=== PATIENT | male | born 1955 | race American Indian/Alaskan Native ===

== ENCOUNTER 2016-12-06 22:08 | Emergency (ER) | payer MEDICAID ==
[2016-12-06] MEDS ORDERED: Lidocaine 1% 30 ML SDV INJECT ONE (22:33)
--- NOTE | 2016-12-06 22:35 | EDM.PDOC ---
ED HPI GENERAL MEDICAL PROBLEM - General Chief Complaint: Laceration Stated Complaint: CUT ARM Time Seen by Provider: 12/06/16 22:33 Source of Information: Reports: Patient History Limitations: Reports: No Limitations - History of Present Illness INITIAL COMMENTS - FREE TEXT/NARRATIVE: cut [employer]. Left Anterior Arm Pain Score (Numeric/FACES): 3 - Related Data Allergies Allergy/AdvReac Type Severity Reaction Status Date / Time amoxicillin Allergy Rash Verified 12/06/16 22:44 Home Meds: Home Meds Aspirin [Halfprin] 81 mg PO DAILY 11/12/15 [History] Hydrocodone/Acetaminophen [Hydrocodon-Acetaminophen 5-325] 1 tab PO ASDIRECTED PRN 11/12/15 [History] predniSONE [Prednisone] 5 mg PO DAILY 11/12/15 [History] Omeprazole 20 mg PO DAILY 01/22/16 [History] Clindamycin HCl [Cleocin] 1 cap PO BID 01/23/16 [History] Past Medical History Respiratory History: Reports: PE Musculoskeletal History: Reports: SLE Immunologic History: Reports: SLE Social & Family History - Tobacco Use Smoking Status *Q: Current Some Day Smoker Years of Tobacco use: 40 Packs/Tins Daily: 0.1 Second Hand Smoke Exposure: Yes - Recreational Drug Use Recreational Drug Use: No ED ROS GENERAL - Review of Systems Review Of Systems: ROS reveals no pertinent complaints other than HPI. ED EXAM, SKIN/RASH Exam: See Below Exam Limited By: No Limitations General Appearance: Alert, WD/WN, No Apparent Distress Ears: Hearing Grossly Normal Throat/Mouth: Normal Voice, No Airway Compromise Head: Atraumatic Neck: Non-Tender, Full Range of Motion Respiratory/Chest: No Respiratory Distress Cardiovascular: Regular Rate, Rhythm GI/Abdominal: Soft, Non-Tender Extremities: Other (left forearm 2", NV wnl.) Neurological: Alert, Oriented, Normal Cognition, Normal Gait, No Motor/Sensory Deficits Psychiatric: Normal Affect, Normal Mood Skin: Warm, Dry, Normal Color Location, Skin: Upper Extremity, Left Lymphatic: No Adenopathy ED SKIN PROCEDURES - Laceration/Wound Repair Left Arm Lac/Wound length In cm: 4 (left forearm) Appearance: Subcutaneous, Linear, Clean Distal NVT: Neuro & Vascular Intact, No Tendon Injury Anesthetic Type: Local Local Anesthesia - Lidocaine (Xylocaine): 1% Plain Local Anesthetic Volume: 5cc Skin Prep: Chlorhexidine (Hibiciens) Saline Irrigation (cc's): 20 Exploration/Debridement/Repair: Wound Explored, In a Bloodless Field, No Foreign Material Found Closed with: Sutures Suture Size: 4-0 Suture Type: Interrupted Tetanus Status Addressed: Yes Complications: No Course - Vital Signs Last Recorded V/S: Last Vital Signs Temp 36.5 C 12/06/16 22:32 Pulse 72 12/06/16 22:32 Resp 17 12/06/16 22:32 BP 115/69 12/06/16 22:32 Pulse Ox 100 12/06/16 22:32 - Orders/Labs/Meds Meds: Medications Discontinued Medications Generic Name Dose Route Start Last Admin Trade Name Isidroq PRN Reason Stop Dose Admin Lidocaine HCl 30 ml 12/06/16 22:33 Xylocaine-Mpf 1% INJECT 12/06/16 22:34 ONETIME ONE Departure - Departure Time of Disposition: 22:58 Disposition: Home, Self-Care 01 Condition: Good Clinical Impression: Laceration of forearm without complication Qualifiers: Encounter type: initial encounter Laterality: left Qualified Code(s): S51.812A - Laceration without foreign body of left forearm, initial encounter - Discharge Information Instructions: Stitches, [place], or Adhesive Wound Closure, [id number] Forms: ED Department Discharge Additional Instructions: 1) keep wound clean dry covered 2) recheck if wound looks infected 3) suture removal 10 days
[2016-12-06 23:10] VITALS: BP 123/79
== END 2016-12-06 23:13 | disposition home or self-care (01) ==
LOC: DL.ED 22:08
DX: S51.812A Laceration without foreign body of left forearm, initial encounter (principal); F17.210 Nicotine dependence, cigarettes, uncomplicated; M32.9 Systemic lupus erythematosus, unspecified; Z79.82 Long term (current) use of aspirin; Z79.899 Other long term (current) drug therapy; Z88.1 Allergy status to other antibiotic agents; Z86.711 Personal history of pulmonary embolism; W45.8XXA Other foreign body or object entering through skin, initial encounter
CPT/HCPCS: 12002; 99282

== ENCOUNTER 2018-01-20 05:39 | Observation (INO) | payer MEDICAID ==
[2018-01-20] MEDS ORDERED: Albuterol/Ipratropium 3.0-0.5 MG/3 ML Neb Soln NEB ONE (05:53)
[2018-01-20] MEDS ORDERED: Sodium Chloride 0.9% 1,000 ML IV ONE (05:56)
[2018-01-20 06:32] LABS: ANION GAP 14.6; CHLORIDE,CL 100 mmol/L (101-111); SODIUM,NA 132 mmol/L (135-145)
--- NOTE | 2018-01-20 06:38 | EDM.PDOC ---
<Marianela Willis - Last Filed: 01/20/18 07:05> ED HPI GENERAL MEDICAL PROBLEM - General Chief Complaint: Respiratory Problem Stated Complaint: PNEUMONIA Time Seen by Provider: 01/20/18 05:50 Source of Information: Reports: Patient, Family History Limitations: Reports: No Limitations - History of Present Illness INITIAL COMMENTS - FREE TEXT/NARRATIVE: ED with c/o "pneumonia" states was treated in clinic 2 weeks ago and not any better, continues to cough up "blood" report small amounts, chills, weak, dry heaves. Poor appetite. Hx Lupus. On daily prednisone, Occasional smoker usually cigars. Pain LUQ worse with movement and cough. reports hx of blood clot to lungs in past estimates one year ago. Patient reports other episodes years ago. Baseline activity level moderate with daily walking. Left Middle Chest Pain Score (Numeric/FACES): 10 - Related Data Allergies Allergy/AdvReac Type Severity Reaction Status Date / Time amoxicillin Allergy Rash Verified 01/20/18 05:54 Home Meds: Home Meds Aspirin [Halfprin] 81 mg PO DAILY 11/12/15 [History] Hydrocodone/Acetaminophen [Hydrocodon-Acetaminophen 5-325] 1 tab PO ASDIRECTED PRN 11/12/15 [History] predniSONE [Prednisone] 5 mg PO DAILY 11/12/15 [History] Omeprazole 20 mg PO DAILY 01/22/16 [History] Clindamycin HCl [Cleocin] 1 cap PO BID 01/23/16 [History] Past Medical History Respiratory History: Reports: PE Gastrointestinal History: Reports: GERD Musculoskeletal History: Reports: SLE Immunologic History: Reports: SLE Social & Family History - Tobacco Use Smoking Status *Q: Current Every Day Smoker Years of Tobacco use: 40 Packs/Tins Daily: 1 - Caffeine Use Caffeine Use: Reports: Coffee, Soda, Tea - Recreational Drug Use Recreational Drug Use: No ED ROS GENERAL - Review of Systems Constitutional: Reports: Chills, Malaise, Weakness HEENT: Reports: No Symptoms, Glasses Respiratory: Reports: Shortness of Breath, Cough, Hemoptysis. Denies: Wheezing Cardiovascular: Reports: No Symptoms Endocrine: Reports: No Symptoms GI/Abdominal: Reports: Decreased Appetite, Vomiting Musculoskeletal: Reports: Other (Generalized) Neurological: Reports: No Symptoms ED EXAM, GENERAL - Physical Exam Exam: See Below Exam Limited By: No Limitations General Appearance: Alert, Moderate Distress Eye Exam: Bilateral Eye: EOMI Ears: Normal External Exam, Normal TMs Nose: Normal Inspection Throat/Mouth: Normal Voice, No Airway Compromise, Other (dry membranes) Head: Atraumatic, Normocephalic Neck: Normal Inspection Respiratory/Chest: Decreased Breath Sounds, Other (Infrequent dry cough) Cardiovascular: Normal Peripheral Pulses, Regular Rate, Rhythm, No Edema, No Murmur, No Rub GI/Abdominal: Normal Bowel Sounds, Soft, Tender (LUQ) Back Exam: Normal Inspection Extremities: Normal Inspection, Normal Range of Motion Neurological: Alert, Oriented, Normal Cognition Psychiatric: Other (Irritable, restless) Skin Exam: Warm, Dry, Intact, Normal Color Course - Vital Signs Last Recorded V/S: Last Vital Signs Temp 37.4 C 01/20/18 05:43 Pulse 89 01/20/18 05:43 Resp 23 H 01/20/18 05:43 BP 127/89 01/20/18 05:43 Pulse Ox 96 01/20/18 05:43 - Orders/Labs/Meds Orders: Active Orders 24 hr Category Date Time Status EKG Documentation Completion [RC] URGENT Care 01/20/18 05:44 Active RT Aerosol Therapy [RC] ASDIRECTED Care 01/20/18 05:54 Active Chest w Cont [CT] Urgent Exams 01/20/18 06:40 Taken CULTURE BLOOD [BC] Stat Lab 01/20/18 05:57 Received CULTURE BLOOD [BC] Stat Lab 01/20/18 06:01 Received Sodium Chloride 0.9% [Normal Saline] 1,000 ml Med 01/20/18 05:56 Active IV .BOLUS Blood Culture x2 Reflex Set [OM.PC] Stat Oth 01/20/18 05:44 Ordered Medication Orders Sodium Chloride (Normal Saline) 1,000 mls @ 125 mls/hr IV .BOLUS ONE Stop: 01/20/18 13:55 Last Admin: 01/20/18 06:13 Dose: 125 mls/hr Labs: Laboratory Tests 01/20/18 01/20/18 01/20/18 Range/Units 05:57 05:57 05:57 WBC 7.0 (5.0-10.0) 10^3/uL RBC 4.46 L (4.6-6.2) 10^6/uL Hgb 13.6 L (14.0-18.0) g/dL Hct 39.3 L (40.0-54.0) % MCV 88.1 (80-100) fL MCH 30.5 (27.0-34.0) pg MCHC 34.6 (33.0-35.0) g/dL Plt Count 128 L (150-450) 10^3/uL Neut % (Auto) 74.7 (42.2-75.2) % Lymph % (Auto) 13.3 L (20.5-50.1) % [place] % (Auto) 11.5 H (2-8) % Eos % (Auto) 0.4 L (1.0-3.0) % Baso % (Auto) 0.1 (0.0-1.0) % D-Dimer, Quantitative (0-400) ng/mL Sodium 132 L (135-145) mmol/L Potassium 3.6 (3.6-5.0) mmol/L Chloride 100 L (101-111) mmol/L Carbon Dioxide 21.0 (21.0-31.0) mmol/L Anion Gap 14.6 BUN 10 (7-18) mg/dL Creatinine 0.9 (0.6-1.3) mg/dL Est Cr Clr Drug Dosing 84.44 mL/min Estimated GFR (MDRD) > 60 BUN/Creatinine Ratio 11.11 Glucose 115 H (74-105) mg/dL Lactic Acid 0.9 (0.5-2.2) mmol/L Calcium 8.4 (8.4-10.2) mg/dl Magnesium 1.7 L (1.8-2.5) mg/dL Total Bilirubin 0.7 (0.2-1.0) mg/dL AST 21 (10-42) IU/L ALT 13 (10-60) IU/L Alkaline Phosphatase 57 (42-121) IU/L Creatine Kinase (26-174) IU/L Troponin I < 0.02 (0.00-0.02) ng/ml B-Natriuretic Peptide 23 (0-100) pg/ml Total Protein 8.6 H (6.7-8.2) g/dl Albumin 3.6 (3.2-5.5) g/dl Globulin 5.0 Albumin/Globulin Ratio 0.72 Amylase (28-100) U/L Lipase (22-51) U/L 01/20/18 01/20/18 Range/Units 05:57 05:57 WBC (5.0-10.0) 10^3/uL RBC (4.6-6.2) 10^6/uL Hgb (14.0-18.0) g/dL Hct (40.0-54.0) % MCV (80-100) fL MCH (27.0-34.0) pg MCHC (33.0-35.0) g/dL Plt Count (150-450) 10^3/uL Neut % (Auto) (42.2-75.2) % Lymph % (Auto) (20.5-50.1) % [place] % (Auto) (2-8) % Eos % (Auto) (1.0-3.0) % Baso % (Auto) (0.0-1.0) % D-Dimer, Quantitative > 5000 H (0-400) ng/mL Sodium (135-145) mmol/L Potassium (3.6-5.0) mmol/L Chloride (101-111) mmol/L Carbon Dioxide (21.0-31.0) mmol/L Anion Gap BUN (7-18) mg/dL Creatinine (0.6-1.3) mg/dL Est Cr Clr Drug Dosing mL/min Estimated GFR (MDRD) BUN/Creatinine Ratio Glucose (74-105) mg/dL Lactic Acid (0.5-2.2) mmol/L Calcium (8.4-10.2) mg/dl Magnesium (1.8-2.5) mg/dL Total Bilirubin (0.2-1.0) mg/dL AST (10-42) IU/L ALT (10-60) IU/L Alkaline Phosphatase (42-121) IU/L Creatine Kinase 132 (26-174) IU/L Troponin I (0.00-0.02) ng/ml B-Natriuretic Peptide (0-100) pg/ml Total Protein (6.7-8.2) g/dl Albumin (3.2-5.5) g/dl Globulin Albumin/Globulin Ratio Amylase 47 (28-100) U/L Lipase 21 L (22-51) U/L Meds: Medications Generic Name Dose Route Start Last Admin Trade Name Freq PRN Reason Stop Dose Admin Sodium Chloride 1,000 mls @ 125 mls/hr 01/20/18 05:56 01/20/18 06:13 Normal Saline IV 01/20/18 13:55 125 mls/hr .BOLUS ONE Administration Discontinued Medications Generic Name Dose Route Start Last Admin Trade Name Nik PRN Reason Stop Dose Admin Albuterol/Ipratropium 3 ml 01/20/18 05:53 01/20/18 05:57 Duoneb 3.0-0.5 Mg/3 Ml NEB 01/20/18 05:54 3 ml ONETIME ONE Administration Enoxaparin Sodium 75 mg 01/20/18 07:44 Lovenox SUBCUT 01/20/18 07:45 ONETIME ONE Hydromorphone HCl 1 mg 01/20/18 07:35 01/20/18 07:43 Dilaudid IVPUSH 01/20/18 07:36 1 mg ONETIME ONE Administration Iopamidol 100 ml 01/20/18 06:41 Isovue-370 (76%) IVPUSH 01/20/18 06:42 ONETIME ONE - Re-Assessments/Exams Free Text/Narrative Re-Assessment/Exam: 01/20/18 06:[address] Figueroa with shift change. Departure - Departure Disposition: Admitted As Inpatient 68 Clinical Impression: Pulmonary embolism and infarction - Discharge Information Forms: ED Department Discharge <David Figueroa - Last Filed: 01/20/18 07:56> ED HPI GENERAL MEDICAL PROBLEM - History of Present Illness INITIAL COMMENTS - FREE TEXT/NARRATIVE: Care of pt assumed from Marianela CORLEY at 0700HR shift change with CT PE study pending. Duration: Constant, Getting Worse Location: Reports: Chest Quality: Reports: Ache, Sharp Severity: Severe Improves with: Reports: None Worsens with: Reports: None Associated Symptoms: Reports: Chest Pain ED ROS GENERAL - Review of Systems Review Of Systems: See Below ED EXAM, GENERAL - Physical Exam Free Text/Narrative:: No change to exam as documented by Marianela CORLEY for this encounter. EKG INTERPRETATION EKG Date: 01/20/18 Time: 06:01 Rhythm: Other (SR) Rate (Beats/Min): 89 [place]: Normal P-Wave: Present QRS: Normal ST-T: Normal QT: Normal Comparison: NA - No Prior EKG Course - Radiology Interpretation Free Text/Narrative:: [facility] [place] [facility] Final Radiology Report Call: [phone] assistance Online chat: [email or web address] Name: HILLARY CHONG Age: 62Years M Date: 01/20/2018 SSN: -- : [id number] Study: CT CHEST W Requesting Physician: MARIANELA WILLIS Images: [id number] Addl Studies: Provided Clinical History: fever, aches, cough Contrast: With Contrast Medium: Isovue 370 Contrast Amount: 63 mL Contrast Method: IV Page 1 of 2 EXAM: CT Chest With Intravenous Contrast CLINICAL HISTORY: 62 years old, male; Signs and symptoms; Cough; Cough with hemorrhage; Patient HX : Coughing up blood, chills, ddimer >5000; Additional info: Fever, aches, cough TECHNIQUE: Axial computed tomography images of the chest with intravenous contrast. All CT scans at this facility use at least one of these dose optimization techniques: automated exposure control; mA and/or kV adjustment per patient size (includes targeted exams where dose is matched to clinical indication); or iterative reconstruction. Coronal and sagittal reformatted images were created and reviewed. CONTRAST: 63 mL of Isovue 370 administered intravenously. COMPARISON: CT CHEST PE STUDY 02/10/2012 9:21 AM FINDINGS: Lungs: LEFT lower lobe pulmonary embolus with occlusion of the medial and posterior basilar segment, and peripheral occlusion of a anterolateral basilar segmental branch, with airspace opacity suggesting possible pulmonary infarction. There is mild paraseptal emphysema in the RIGHT apex. Inferior segment lingular, RIGHT middle lobe lateral segment, RIGHT lower lobe anterior basilar segment pulmonary subsegmental atelectasis. LEFT lower lobe calcified pulmonary parenchymal granuloma. Pleural space: Unremarkable. No pneumothorax. No significant effusion. Heart: Slight cardiac interventricular septal flattening suggesting elevated RIGHT heart pressures. Mitral annular calcification is present. No significant pericardial effusion. HILLARY CHONG | Final Radiology Report CONFIDENTIALITY STATEMENT This report is intended only for use by the referring physician, and only in accordance with law. If you received this in error, call [phone]. Page 2 of 2 Thyroid: The partially imaged bilateral thyroid lobes are unremarkable. Bones/joints: Unremarkable. No acute fracture. No dislocation. Soft tissues: Unremarkable. Vasculature: Unremarkable. No thoracic aortic aneurysm. Lymph nodes: Mild nonspecific bilateral axillary lymphadenopathy. IMPRESSION: 1. LEFT lower lobe pulmonary embolus with possible pulmonary infarctions. 2. Slight cardiac interventricular septal flattening suggesting elevated RIGHT heart pressures. 3. Mild nonspecific bilateral axillary lymphadenopathy. 4. Pulmonary emphysema. Findings were discussed over the telephone with Dr. Jansen on 01/20/2018 7:35 AM CDT. Thank you for allowing us to participate in the care of your patient. Dictated and Authenticated by: Km Wong MD 01/20/2018 7:35 AM Central Time ([place] & [place]) CT Results Date: 01/20/18 Departure - Departure Time of Disposition: 07:55 (admitted to Dr. Elizabeth) Condition: Serious - Discharge Information *PRESCRIPTION DRUG MONITORING PROGRAM REVIEWED*: Not Applicable *COPY OF PRESCRIPTION DRUG MONITORING REPORT IN PATIENT MANNY: Not Applicable
[2018-01-20] MEDS ORDERED: Iopamidol 755 Mg/ML 100 ML Bottle IVPUSH ONE (06:41)
[2018-01-20] MEDS ORDERED: HYDROmorphone 1 MG/ML Syringe IVPUSH ONE (07:35)
[2018-01-20] MEDS ORDERED: Enoxaparin 100 MG/1 ML Syringe SUBCUT ONE (07:44)
[2018-01-20] MEDS: predniSONE 5 MG Tab PO SCH (11:04)
[2018-01-20] MEDS: Ondansetron 4 MG/2 ML SDV IV PRN (11:10)
[2018-01-20] MEDS: Morphine 2 MG/ML Syringe IVPUSH PRN ×4 (11:13→23:54)
[2018-01-20] MEDS: Acetaminophen/oxyCODONE 325-5 MG Tab PO PRN ×3 (11:52→20:02)
--- NOTE | 2018-01-20 12:17 | PCM.HP ---
H&P History of Present Illness - General Date of Service: 01/20/18 Admit Problem/Dx: Admission Diagnosis/Problem Admission Diagnosis/Problem Pulmonary embolism Source of Information: Patient History Limitations: Reports: No Limitations - History of Present Illness Initial Comments - Free Text/Narative: 62 yo M with PMH of COPD, SLE on prednisone, who presents with pleuritic chest pain. Patient initially had cough, shortness of breath for a week and completed a course of antibiotics but symptoms did not resolve completely He was seen by his PCP and CTPE was planned for tomorrow to rule out PE. He however developed worsening left sided pleuritic chest pain, 8/10, worse when he coughs or takes deep breaths. He was seen in the ED for these symptoms and CTPE was done that showed left sided PE with possible pulmonary infarction. Left Middle Chest Pain Score (Numeric/FACES): 10 - Related Data Allergies/Adverse Reactions: Allergies Allergy/AdvReac Type Severity Reaction Status Date / Time amoxicillin Allergy Rash Verified 01/20/18 10:23 Home Medications: Home Meds Aspirin [Halfprin] 81 mg PO DAILY 11/12/15 [History] Hydrocodone/Acetaminophen [Hydrocodon-Acetaminophen 5-325] 1 tab PO ASDIRECTED PRN 11/12/15 [History] predniSONE [Prednisone] 5 mg PO DAILY 11/12/15 [History] Omeprazole 20 mg PO DAILY 01/22/16 [History] Clindamycin HCl [Cleocin] 1 cap PO BID 01/23/16 [History] Past Medical History HEENT History: Reports: Impaired Vision Other HEENT History: CORRECTIVE LENS Respiratory History: Reports: PE, Pneumonia, Recurrent Gastrointestinal History: Reports: GERD Musculoskeletal History: Reports: SLE Immunologic History: Reports: SLE Dermatologic History: Reports: Cellulitis - Past Surgical History HEENT Surgical History: Reports: Oral Surgery Respiratory Surgical History: Reports: None GI Surgical History: Reports: Colonoscopy, EGD Musculoskeletal Surgical History: Reports: None Dermatological Surgical History: Reports: None Social & Family History - Family History Family Medical History: Noncontributory - Tobacco Use Smoking Status *Q: Current Every Day Smoker Years of Tobacco use: 40 Packs/Tins Daily: 1 Used Tobacco, but Quit: No Second Hand Smoke Exposure: Yes - Caffeine Use Caffeine Use: Reports: Coffee Other Caffeine Use: OCCASIONALLY - Recreational Drug Use Recreational Drug Use: No H&P Review of Systems - Review of Systems: Review Of Systems: See Below General: Reports: Malaise, Fatigue HEENT: Reports: No Symptoms Pulmonary: Reports: Shortness of Breath, Pleuritic Chest Pain Cardiovascular: Reports: No Symptoms Gastrointestinal: Reports: No Symptoms Genitourinary: Reports: No Symptoms Musculoskeletal: Reports: No Symptoms Skin: Reports: No Symptoms Exam - Exam Exam: See Below - Vital Signs Vital Signs: Last Vital Signs Temp 37.6 C 01/20/18 10:15 Pulse 91 01/20/18 10:15 Resp 16 01/20/18 10:15 BP 169/87 H 01/20/18 10:15 Pulse Ox 95 01/20/18 10:15 Weight: 71.033 kg - Exam General: Alert, Oriented, Moderate Distress HEENT: Conjunctiva Clear Neck: Supple Lungs: Clear to Auscultation, Normal Respiratory Effort Cardiovascular: Regular Rate, Regular Rhythm GI/Abdominal Exam: Normal Bowel Sounds - Patient Data Lab Results Last 24 hrs: Laboratory Results - last 24 hr 01/20/18 01/20/18 01/20/18 Range/Units 05:57 05:57 05:57 WBC 7.0 (5.0-10.0) 10^3/uL RBC 4.46 L (4.6-6.2) 10^6/uL Hgb 13.6 L (14.0-18.0) g/dL Hct 39.3 L (40.0-54.0) % MCV 88.1 (80-100) fL MCH 30.5 (27.0-34.0) pg MCHC 34.6 (33.0-35.0) g/dL Plt Count 128 L (150-450) 10^3/uL Neut % (Auto) 74.7 (42.2-75.2) % Lymph % (Auto) 13.3 L (20.5-50.1) % [place] % (Auto) 11.5 H (2-8) % Eos % (Auto) 0.4 L (1.0-3.0) % Baso % (Auto) 0.1 (0.0-1.0) % D-Dimer, Quantitative (0-400) ng/mL Sodium 132 L (135-145) mmol/L Potassium 3.6 (3.6-5.0) mmol/L Chloride 100 L (101-111) mmol/L Carbon Dioxide 21.0 (21.0-31.0) mmol/L Anion Gap 14.6 BUN 10 (7-18) mg/dL Creatinine 0.9 (0.6-1.3) mg/dL Est Cr Clr Drug Dosing 84.44 mL/min Estimated GFR (MDRD) > 60 BUN/Creatinine Ratio 11.11 Glucose 115 H (74-105) mg/dL Lactic Acid 0.9 (0.5-2.2) mmol/L Calcium 8.4 (8.4-10.2) mg/dl Magnesium 1.7 L (1.8-2.5) mg/dL Total Bilirubin 0.7 (0.2-1.0) mg/dL AST 21 (10-42) IU/L ALT 13 (10-60) IU/L Alkaline Phosphatase 57 (42-121) IU/L Creatine Kinase (26-174) IU/L Troponin I < 0.02 (0.00-0.02) ng/ml B-Natriuretic Peptide 23 (0-100) pg/ml Total Protein 8.6 H (6.7-8.2) g/dl Albumin 3.6 (3.2-5.5) g/dl Globulin 5.0 Albumin/Globulin Ratio 0.72 Amylase (28-100) U/L Lipase (22-51) U/L 18 01/20/18 Range/Units 05:57 05:57 WBC (5.0-10.0) 10^3/uL RBC (4.6-6.2) 10^6/uL Hgb (14.0-18.0) g/dL Hct (40.0-54.0) % MCV (80-100) fL MCH (27.0-34.0) pg MCHC (33.0-35.0) g/dL Plt Count (150-450) 10^3/uL Neut % (Auto) (42.2-75.2) % Lymph % (Auto) (20.5-50.1) % [place] % (Auto) (2-8) % Eos % (Auto) (1.0-3.0) % Baso % (Auto) (0.0-1.0) % D-Dimer, Quantitative > 5000 H (0-400) ng/mL Sodium (135-145) mmol/L Potassium (3.6-5.0) mmol/L Chloride (101-111) mmol/L Carbon Dioxide (21.0-31.0) mmol/L Anion Gap BUN (7-18) mg/dL Creatinine (0.6-1.3) mg/dL Est Cr Clr Drug Dosing mL/min Estimated GFR (MDRD) BUN/Creatinine Ratio Glucose (74-105) mg/dL Lactic Acid (0.5-2.2) mmol/L Calcium (8.4-10.2) mg/dl Magnesium (1.8-2.5) mg/dL Total Bilirubin (0.2-1.0) mg/dL AST (10-42) IU/L ALT (10-60) IU/L Alkaline Phosphatase (42-121) IU/L Creatine Kinase 132 (26-174) IU/L Troponin I (0.00-0.02) ng/ml B-Natriuretic Peptide (0-100) pg/ml Total Protein (6.7-8.2) g/dl Albumin (3.2-5.5) g/dl Globulin Albumin/Globulin Ratio Amylase 47 (28-100) U/L Lipase 21 L (22-51) U/L Result Diagrams: 01/20/18 05:57 01/20/18 05:57 Problem List Initiated/Reviewed/Updated: Yes Orders Last 24hrs: Active Orders 24 hr Category Date Time Status Patient Status [ADT] Routine ADT 01/20/18 09:27 Active Ambulate [RC] ASDIRECTED Care 01/20/18 09:27 Active Cardiac Monitoring [RC] CONTINUOUS Care 01/20/18 09:28 Active Oxygen Therapy [RC] PRN Care 01/20/18 09:27 Active Peripheral IV Care [RC] 09,21 Care 01/20/18 11:34 Active Pulse Oximetry [RC] CONTINUOUS Care 01/20/18 09:28 Active RT Aerosol Therapy [RC] ASDIRECTED Care 01/20/18 05:54 Active VTE/DVT Education [RC] PER UNIT ROUTINE Care 01/20/18 09:27 Active Vital Signs [RC] Q4H Care 01/20/18 09:27 Active Regular Diet [DIET] Diet 01/20/18 Breakfast Active CULTURE BLOOD [BC] Stat Lab 01/20/18 05:57 Received CULTURE BLOOD [BC] Stat Lab 01/20/18 06:01 Received Acetaminophen/oxyCODONE [Percocet 325-5 MG] Med 01/20/18 10:57 Active 1 tab PO Q4H PRN Aspirin [Halfprin] Med 01/21/18 09:00 Active 81 mg PO DAILY Enoxaparin [Lovenox] Med 01/20/18 21:00 Active 80 mg SUBCUT Q12HR Morphine Med 01/20/18 10:57 Active 1 mg IVPUSH Q2H PRN Omeprazole Med 01/21/18 06:00 Active 20 mg PO ACBRK Ondansetron [Zofran] Med 01/20/18 10:57 Active 4 mg IV Q4H PRN Sodium Chloride 0.9% [Normal Saline] 1,000 ml Med 01/20/18 05:56 Active IV .BOLUS Sodium Chloride 0.9% [Saline Flush] Med 01/20/18 11:34 Ordered 10 ml FLUSH ASDIRECTED PRN predniSONE Med 01/20/18 09:45 Active 5 mg PO DAILY Blood Culture x2 Reflex Set [OM.PC] Stat Oth 01/20/18 05:44 Ordered Peripheral IV Insertion Adult [OM.PC] Routine Oth 01/20/18 11:34 Ordered Resuscitation Status Routine Resus Stat 01/20/18 09:27 Ordered Medication Orders Aspirin (Halfprin) 81 mg PO DAILY KERI Enoxaparin Sodium (Lovenox) 80 mg SUBCUT Q12HR KERI Sodium Chloride (Normal Saline) 1,000 mls @ 125 mls/hr IV .BOLUS ONE Stop: 01/20/18 13:55 Last Admin: 01/20/18 06:13 Dose: 125 mls/hr Morphine Sulfate (Morphine) 1 mg IVPUSH Q2H PRN PRN Reason: Pain (severe 7-10) Last Admin: 01/20/18 11:13 Dose: 1 mg Omeprazole (Omeprazole) 20 mg PO ACBRK KERI Ondansetron HCl (Zofran) 4 mg IV Q4H PRN PRN Reason: Nausea/Vomiting Last Admin: 01/20/18 11:10 Dose: 4 mg Oxycodone/Acetaminophen (Percocet 325-5 Mg) 1 tab PO Q4H PRN PRN Reason: Pain (moderate 4-6) Prednisone (Prednisone) 5 mg PO DAILY [facility] Last Admin: 01/20/18 11:04 Dose: 5 mg Sodium Chloride (Saline Flush) 10 ml FLUSH ASDIRECTED PRN PRN Reason: Keep Vein Open Assessment/Plan Comment:: Acute PE non-massive PE: negative troponin, low BNP likely 2/2 hypercoagulable state given hx of SLE monitor vital signs Q2 hrs tele and cont pulse ox monitoring start therapeutic anticoagulation with sc lovenox 80 mg q12 hrs will transition to oral anticoagulation tomorrow and discharge if stable Hx of SLE stable continue oral prednisone Code status: WARD
[2018-01-20] MEDS: Sodium Chloride 0.9% 10 ML Syringe FLUSH PRN ×2 (14:22→14:26)
[2018-01-20] MEDS ORDERED: Morphine 2 MG/ML Syringe IVPUSH ONE (20:16)
[2018-01-20] MEDS: Enoxaparin 80 MG/0.8 ML Syringe SUBCUT SCH (20:31)
[2018-01-21] MEDS: Acetaminophen/oxyCODONE 325-5 MG Tab PO PRN ×5 (00:02→21:22)
[2018-01-21] MEDS: Ondansetron 4 MG/2 ML SDV IV PRN ×2 (04:09→17:10)
[2018-01-21] MEDS: Morphine 2 MG/ML Syringe IVPUSH PRN (04:11)
[2018-01-21] MEDS: Omeprazole 20 MG Cap.CR PO SCH (06:00)
[2018-01-21] MEDS: Aspirin 81 MG Tab.EC PO SCH (08:55)
[2018-01-21] MEDS: predniSONE 5 MG Tab PO SCH (08:57)
[2018-01-21] MEDS: Enoxaparin 80 MG/0.8 ML Syringe SUBCUT SCH ×2 (08:58→20:36)
--- NOTE | 2018-01-21 12:06 | PCM.PN ---
- General Info Date of Service: 01/21/18 Admission Dx/Problem (Free Text): Admission Diagnosis/Problem Admission Diagnosis/Problem Pulmonary embolism Subjective Update: 62 yo M with PMH of COPD, SLE on prednisone, who presents with pleuritic chest pain. CTPA showed PE. He was started on SQ Lovenox. he was seen and examined this morning. Still c/o left chest pain. Pain is reproducible. He notes pleurisy. No cough, fever, chills. No SOB. On 2 L and saturating at 96%. Functional Status: Reports: Other (Left sided chest pain.) - Review of Systems General: Reports: No Symptoms HEENT: Reports: No Symptoms Pulmonary: Reports: Pleuritic Chest Pain Cardiovascular: Reports: No Symptoms Gastrointestinal: Reports: No Symptoms Genitourinary: Reports: No Symptoms Musculoskeletal: Reports: No Symptoms Skin: Reports: No Symptoms Neurological: Reports: No Symptoms Psychiatric: Reports: No Symptoms - Patient Data Vitals - Most Recent: Last Vital Signs Temp 98.2 F 01/21/18 08:00 Pulse 86 01/21/18 08:00 Resp 18 01/21/18 08:00 BP 143/81 H 01/21/18 08:00 Pulse Ox 95 01/21/18 09:28 Weight - Most Recent: 156 lb 9.6 oz I&O - Last 24 Hours: Intake & Output 01/20/18 01/21/18 01/21/18 22:59 06:59 14:59 Intake Total 850 Balance 850 Neil Results Last 24 Hours: Microbiology 01/20/18 06:01 Aerobic Blood Culture - Preliminary Blood - Venous - Lab Draw NO GROWTH AFTER 1 DAY Anaerobic Blood Culture - Preliminary NO GROWTH AFTER 1 DAY 01/20/18 05:57 Aerobic Blood Culture - Preliminary Blood - Venous NO GROWTH AFTER 1 DAY Anaerobic Blood Culture - Preliminary NO GROWTH AFTER 1 DAY Med Orders - Current: Current Medications Aspirin (Halfprin) 81 mg PO DAILY [facility] Last Admin: 01/21/18 08:55 Dose: 81 mg Enoxaparin Sodium (Lovenox) 80 mg SUBCUT Q12HR [facility] Last Admin: 01/21/18 08:58 Dose: 80 mg Morphine Sulfate (Morphine) 1 mg IVPUSH Q2H PRN PRN Reason: Pain (severe 7-10) Last Admin: 01/21/18 04:11 Dose: 1 mg Omeprazole (Omeprazole) 20 mg PO ACBRK [facility] Last Admin: 01/21/18 06:00 Dose: 20 mg Ondansetron HCl (Zofran) 4 mg IV Q4H PRN PRN Reason: Nausea/Vomiting Last Admin: 01/21/18 04:09 Dose: 4 mg Oxycodone/Acetaminophen (Percocet 325-5 Mg) 1 tab PO Q4H PRN PRN Reason: Pain (moderate 4-6) Last Admin: 01/21/18 08:55 Dose: 1 tab Prednisone (Prednisone) 5 mg PO DAILY [facility] Last Admin: 01/21/18 08:57 Dose: 5 mg Sodium Chloride (Saline Flush) 10 ml FLUSH ASDIRECTED PRN PRN Reason: Keep Vein Open Last Admin: 01/20/18 14:26 Dose: 10 ml Discontinued Medications Albuterol/Ipratropium (Duoneb 3.0-0.5 Mg/3 Ml) 3 ml NEB ONETIME ONE Stop: 01/20/18 05:54 Last Admin: 01/20/18 05:57 Dose: 3 ml Enoxaparin Sodium (Lovenox) 75 mg SUBCUT ONETIME ONE Stop: 01/20/18 07:45 Last Admin: 01/20/18 08:07 Dose: 75 mg Hydromorphone HCl (Dilaudid) 1 mg IVPUSH ONETIME ONE Stop: 01/20/18 07:36 Last Admin: 01/20/18 07:43 Dose: 1 mg Sodium Chloride (Normal Saline) 1,000 mls @ 125 mls/hr IV .BOLUS ONE Stop: 01/20/18 13:55 Last Infusion: 01/20/18 15:35 Dose: Infused Iopamidol (Isovue-370 (76%)) 100 ml IVPUSH ONETIME ONE Stop: 01/20/18 06:42 Last Admin: 01/20/18 06:41 Dose: 100 ml Morphine Sulfate (Morphine) 2 mg IVPUSH ONETIME ONE Stop: 01/20/18 20:17 Last Admin: 01/20/18 20:29 Dose: 2 mg - Exam Quality Assessment: Supplemental Oxygen, DVT Prophylaxis General: Alert, Oriented HEENT: Pupils Equal, Pupils Reactive, EOMI, Mucous Membr. Moist/[place] Neck: Supple Lungs: Clear to Auscultation, Normal Respiratory Effort Cardiovascular: Regular Rate, Regular Rhythm GI/Abdominal Exam: Normal Bowel Sounds, Soft, Non-Tender, No Organomegaly, No Distention, No Abnormal Bruit, No Mass, Pelvis Stable (Male) Exam: No Hernia, Normal Inspection, Normal Prostate, Circumcised Back Exam: Normal Inspection, Full Range of Motion Extremities: Normal Inspection, Normal Range of Motion, Non-Tender, No Pedal Edema, Normal Capillary Refill Skin: Warm, Dry, Intact Wound/Incisions: Healing Well Neurological: No New Focal Deficit Psy/Mental Status: Alert, Normal Affect, Normal Mood - Problem List & Annotations (1) Left sided chest pain SNOMED Code(s): 274997501 Code(s): R07.9 - CHEST PAIN, UNSPECIFIED Status: Acute Current Visit: Yes - Problem List Review Problem List Initiated/Reviewed/Updated: Yes - Plan Plan:: Acute PE Non-massive PE: negative troponin, low BNP likely 2/2 hypercoagulable state given hx of SLE monitor vital signs Q4 hrs Continue supplemental oxygen and wean off as needed Pulse ox Continue SQ Lovenox 80 mg q12 hrs will transition to oral anticoagulation tomorrow and discharge if stable Left sided chest pain appears muskuloskeletal Troponin on admission was negative will repeat troponin Percocet for pain control Hx of SLE stable continue oral prednisone Code status: WARD
[2018-01-22] MEDS: Piperacillin/Tazobactam 3.375 GM in Sodium Chloride 0.9% 100 ML IV SCH ×4 (01:13→18:31)
[2018-01-22] MEDS: Omeprazole 20 MG Cap.CR PO SCH (06:29)
[2018-01-22] MEDS: predniSONE 5 MG Tab PO SCH (08:50)
[2018-01-22] MEDS: Aspirin 81 MG Tab.EC PO SCH (08:50)
[2018-01-22] MEDS: Enoxaparin 80 MG/0.8 ML Syringe SUBCUT SCH ×2 (11:01→21:23)
[2018-01-22] MEDS: Docusate Sodium 100 MG Cap PO SCH ×2 (12:58→21:23)
--- NOTE | 2018-01-22 13:49 | PCM.PN ---
- General Info Date of Service: 01/22/18 Admission Dx/Problem (Free Text): Admission Diagnosis/Problem Admission Diagnosis/Problem Pulmonary embolism Subjective Update: 62 yo M with PMH of COPD, SLE on prednisone, who presents with pleuritic chest pain. CTPA showed PE. He was started on SQ Lovenox. he was seen and examined this morning. he spike temp. overnight. Tmax 100.6F I did mandel cx him and started him on IV zosyn and Vanco. Patient feeling better this morning. Chest pain has improved. His saturating at 97% on RA Functional Status: Reports: Pain Controlled - Review of Systems General: Reports: No Symptoms HEENT: Reports: No Symptoms Pulmonary: Reports: No Symptoms Cardiovascular: Reports: No Symptoms Gastrointestinal: Reports: No Symptoms Genitourinary: Reports: No Symptoms Musculoskeletal: Reports: No Symptoms Skin: Reports: No Symptoms Neurological: Reports: No Symptoms Psychiatric: Reports: No Symptoms - Patient Data Vitals - Most Recent: Last Vital Signs Temp 98.5 F 01/22/18 11:04 Pulse 83 01/22/18 11:04 Resp 20 01/22/18 11:04 BP 143/77 H 01/22/18 11:04 Pulse Ox 97 01/22/18 11:04 Weight - Most Recent: 156 lb 9.6 oz I&O - Last 24 Hours: Intake & Output 01/21/18 01/22/18 01/22/18 22:59 06:59 14:59 Intake Total 510 100 443 Output Total 80 Balance 510 20 443 Lab Results Last 24 Hours: Laboratory Results - last 24 hr 01/21/18 01/21/18 Range/Units 00:55 01:00 WBC 8.8 (5.0-10.0) 10^3/uL RBC 4.25 L (4.6-6.2) 10^6/uL Hgb 12.8 L (14.0-18.0) g/dL Hct 37.3 L (40.0-54.0) % MCV 87.8 (80-100) fL MCH 30.1 (27.0-34.0) pg MCHC 34.3 (33.0-35.0) g/dL Plt Count 135 L (150-450) 10^3/uL Urine Color Rosalva (YELLOW) Urine Appearance Cloudy (CLEAR) Urine pH 6.0 (5.0-9.0) Ur Specific [place] >= 1.030 (1.005-1.030) Urine Protein 100 H (NEGATIVE) Urine Glucose (UA) Negative (NEGATIVE) Urine Ketones 15 H (NEGATIVE) Urine Occult Blood Moderate H (NEGATIVE) Urine Nitrite Negative (NEGATIVE) Urine Bilirubin Moderate H (NEGATIVE) Urine Urobilinogen 1.0 (0.2-1.0) mg/dL Ur Leukocyte Esterase Negative (NEGATIVE) Urine RBC 5-10 H /HPF Urine WBC 0-5 (0-5/HPF) /HPF Ur Epithelial Cells Rare /HPF Amorphous Sediment Few (0/HPF) /HPF Urine Bacteria Rare (0-FEW/HPF) /HPF Urine Mucus Many H /LPF Neil Results Last 24 Hours: Microbiology 01/20/18 06:01 Aerobic Blood Culture - Preliminary Blood - Venous - Lab Draw NO GROWTH AFTER 2 DAYS Anaerobic Blood Culture - Preliminary NO GROWTH AFTER 2 DAYS 01/20/18 05:57 Aerobic Blood Culture - Preliminary Blood - Venous NO GROWTH AFTER 2 DAYS Anaerobic Blood Culture - Preliminary NO GROWTH AFTER 2 DAYS 01/21/18 00:55 Anaerobic Blood Culture - Final Blood - Venous Med Orders - Current: Current Medications Aspirin (Halfprin) 81 mg PO DAILY [facility] Last Admin: 01/22/18 08:50 Dose: 81 mg Docusate Sodium (Colace) 100 mg PO BID [facility] Last Admin: 01/22/18 12:58 Dose: 100 mg Enoxaparin Sodium (Lovenox) 80 mg SUBCUT Q12HR [facility] Last Admin: 01/22/18 11:01 Dose: 80 mg Piperacillin Sod/Tazobactam (Sod 3.375 gm/ Sodium Chloride) 100 mls @ 200 mls/ hr IV Q6H [facility] Last Admin: 01/22/18 12:58 Dose: 200 mls/hr Omeprazole (Omeprazole) 20 mg PO ACBRK [facility] Last Admin: 01/22/18 06:29 Dose: 20 mg Ondansetron HCl (Zofran) 4 mg IV Q4H PRN PRN Reason: Nausea/Vomiting Last Admin: 01/21/18 17:10 Dose: 4 mg Oxycodone/Acetaminophen (Percocet 325-5 Mg) 2 tab PO Q6H PRN PRN Reason: Pain (moderate 4-6) Last Admin: 01/21/18 21:22 Dose: 2 tab Prednisone (Prednisone) 5 mg PO DAILY [facility] Last Admin: 01/22/18 08:50 Dose: 5 mg Senna/Docusate Sodium (Senna Plus) 1 tab PO BID PRN PRN Reason: Constipation Sodium Chloride (Saline Flush) 10 ml FLUSH ASDIRECTED PRN PRN Reason: Keep Vein Open Last Admin: 01/20/18 14:26 Dose: 10 ml Discontinued Medications Albuterol/Ipratropium (Duoneb 3.0-0.5 Mg/3 Ml) 3 ml NEB ONETIME ONE Stop: 01/20/18 05:54 Last Admin: 01/20/18 05:57 Dose: 3 ml Enoxaparin Sodium (Lovenox) 75 mg SUBCUT ONETIME ONE Stop: 01/20/18 07:45 Last Admin: 01/20/18 08:07 Dose: 75 mg Hydromorphone HCl (Dilaudid) 1 mg IVPUSH ONETIME ONE Stop: 01/20/18 07:36 Last Admin: 01/20/18 07:43 Dose: 1 mg Sodium Chloride (Normal Saline) 1,000 mls @ 125 mls/hr IV .BOLUS ONE Stop: 01/20/18 13:55 Last Infusion: 01/20/18 15:35 Dose: Infused Iopamidol (Isovue-370 (76%)) 100 ml IVPUSH ONETIME ONE Stop: 01/20/18 06:42 Last Admin: 01/20/18 06:41 Dose: 100 ml Morphine Sulfate (Morphine) 1 mg IVPUSH Q2H PRN PRN Reason: Pain (severe 7-10) Last Admin: 01/21/18 04:11 Dose: 1 mg Morphine Sulfate (Morphine) 2 mg IVPUSH ONETIME ONE Stop: 01/20/18 20:17 Last Admin: 01/20/18 20:29 Dose: 2 mg Oxycodone/Acetaminophen (Percocet 325-5 Mg) 1 tab PO Q4H PRN PRN Reason: Pain (moderate 4-6) Last Admin: 01/21/18 08:55 Dose: 1 tab - Exam Quality Assessment: DVT Prophylaxis General: Alert, Oriented HEENT: Pupils Equal, Pupils Reactive, EOMI, Mucous Membr. Moist/[place] Neck: Supple Lungs: Clear to Auscultation, Normal Respiratory Effort Cardiovascular: Regular Rate, Regular Rhythm GI/Abdominal Exam: Normal Bowel Sounds, Soft, Non-Tender, No Organomegaly, No Distention, No Abnormal Bruit, No Mass, Pelvis Stable (Male) Exam: No Hernia, Normal Inspection, Normal Prostate, Circumcised Back Exam: Normal Inspection, Full Range of Motion Extremities: Normal Inspection, Normal Range of Motion, Non-Tender, No Pedal Edema, Normal Capillary Refill Skin: Warm, Dry, Intact Wound/Incisions: Healing Well Neurological: No New Focal Deficit Psy/Mental Status: Alert, Normal Affect, Normal Mood - Problem List & Annotations (1) Left sided chest pain SNOMED Code(s): 533790869 Code(s): R07.9 - CHEST PAIN, UNSPECIFIED Status: Acute Current Visit: Yes (2) Pneumonia SNOMED Code(s): 652630885 Code(s): J18.9 - PNEUMONIA, UNSPECIFIED ORGANISM Status: Acute Current Visit: Yes - Problem List Review Problem List Initiated/Reviewed/Updated: Yes - My Orders Last 24 Hours: My Active Orders 01/21/18 12:45 Communication Order [RC] ROUTINE 01/21/18 23:58 Blood Culture x2 Reflex Set [OM.PC] Stat 01/22/18 00:00 Piperacillin/Tazobactam [Zosyn] 3.375 gm Sodium Chloride 0.9% [Normal Saline] 100 ml IV Q6H 01/22/18 12:02 Docusate Sodium/Sennosides [Senna Plus] 1 tab PO BID PRN 01/22/18 12:15 Docusate Sodium [Colace] 100 mg PO BID - Plan Plan:: Possible pneumonia Continue IV abx for another 24 hr follow cx Acute PE Non-massive PE: negative troponin, low BNP likely 2/2 hypercoagulable state given hx of SLE monitor vital signs Q4 hrs Continue SQ Lovenox 80 mg q12 hrs will transition to oral anticoagulation tomorrow and discharge MSK chest pain improved Hx of SLE stable continue oral prednisone Code status: WARD
[2018-01-23] MEDS: Sodium Chloride 0.9% 10 ML Syringe FLUSH PRN ×2 (00:16→06:00)
[2018-01-23] MEDS: Piperacillin/Tazobactam 3.375 GM in Sodium Chloride 0.9% 100 ML IV SCH ×3 (00:16→11:59)
[2018-01-23] MEDS: Ondansetron 4 MG/2 ML SDV IV PRN (06:00)
[2018-01-23] MEDS: Omeprazole 20 MG Cap.CR PO SCH (06:01)
[2018-01-23] MEDS: Docusate Sodium 100 MG Cap PO SCH (08:50)
[2018-01-23] MEDS: Aspirin 81 MG Tab.EC PO SCH (08:51)
[2018-01-23] MEDS: predniSONE 5 MG Tab PO SCH (08:51)
[2018-01-23] MEDS: Enoxaparin 80 MG/0.8 ML Syringe SUBCUT SCH (08:51)
--- NOTE | 2018-01-23 12:35 | PCM.DCSUM1 ---
Discharge Summary - Hospital Course HPI Initial Comments: 62 yo M with PMH of COPD, SLE on prednisone, who presents with pleuritic chest pain. CTPA showed PE and was subsequently admitted. He was managed with SQ Lovenox. He was also received IV Zosyn for possible pneumonia. His symptoms have improved. He is being discharge home on Eliquis and PO Levaquin. He will follow up with his PCP on 01/25. Diagnosis: Stroke: No - Discharge Data Discharge Date: 01/23/18 Discharge Disposition: Home, Self-Care 01 Condition: Good - Discharge Diagnosis/Problem(s) (1) Left sided chest pain SNOMED Code(s): 773191747 ICD Code: R07.9 - CHEST PAIN, UNSPECIFIED Status: Acute Current Visit: Yes (2) Pneumonia SNOMED Code(s): 362996666 ICD Code: J18.9 - PNEUMONIA, UNSPECIFIED ORGANISM Status: Acute Current Visit: Yes (3) Pneumonia SNOMED Code(s): 556504380 ICD Code: J18.9 - PNEUMONIA, UNSPECIFIED ORGANISM Status: Acute Current Visit: Yes - Patient Instructions Diet: Heart Healthy Diet Activity: As Tolerated Notify Provider of: Fever, Increased Pain, Nausea and/or Vomiting - Discharge Plan *PRESCRIPTION DRUG MONITORING PROGRAM REVIEWED*: Not Applicable *COPY OF PRESCRIPTION DRUG MONITORING REPORT IN PATIENT MANNY: Not Applicable Prescriptions/Med Rec: levoFLOXacin [Levaquin] 500 mg PO Q24H 7 Days #7 tablet Home Medications: Home Meds Hydrocodone/Acetaminophen [Hydrocodon-Acetaminophen 5-325] 1 tab PO ASDIRECTED PRN 11/12/15 [History] predniSONE [Prednisone] 5 mg PO DAILY 11/12/15 [History] Omeprazole 20 mg PO DAILY 01/22/16 [History] Clindamycin HCl [Cleocin] 1 cap PO BID 01/23/16 [History] levoFLOXacin [Levaquin] 500 mg PO Q24H 7 Days #7 tablet 01/23/18 [Rx] Patient Handouts: Pulmonary Embolism Referrals: PCP,Unobtain [Primary Care Provider] - - Discharge Summary/Plan Comment DC Time >30 min.: Yes - General Info Admission Dx/Problem (Free Text: Admission Diagnosis/Problem Admission Diagnosis/Problem Pulmonary embolism Subjective Update: 62 yo M with PMH of COPD, SLE on prednisone, who presents with pleuritic chest pain. CTPA showed PE and was subsequently admitted. He was managed with SQ Lovenox. He was also received IV Zosyn for possible pneumonia. His symptoms have improved. He is being discharge home on Eliquis and PO Levaquin. He will follow up with his PCP on 01/25. Functional Status: Reports: Pain Controlled - Review of Systems General: Reports: No Symptoms HEENT: Reports: No Symptoms Pulmonary: Reports: No Symptoms Cardiovascular: Reports: No Symptoms Gastrointestinal: Reports: No Symptoms Genitourinary: Reports: No Symptoms Musculoskeletal: Reports: No Symptoms Skin: Reports: No Symptoms Neurological: Reports: No Symptoms Psychiatric: Reports: No Symptoms - Patient Data Vitals - Most Recent: Last Vital Signs Temp 99.1 F 01/23/18 11:55 Pulse 82 01/23/18 11:55 Resp 20 01/23/18 11:55 BP 136/78 01/23/18 11:55 Pulse Ox 98 01/23/18 11:55 Weight - Most Recent: 156 lb 9.6 oz I&O - Last 24 hours: Intake & Output 01/22/18 01/23/18 01/23/18 22:59 06:59 14:59 Intake Total 449 594 350 Output Total 100 Balance 449 494 350 SHARDA Results - Last 24 hrs: Microbiology 01/20/18 06:01 Aerobic Blood Culture - Preliminary Blood - Venous - Lab Draw NO GROWTH AFTER 3 DAYS Anaerobic Blood Culture - Preliminary NO GROWTH AFTER 3 DAYS 01/20/18 05:57 Aerobic Blood Culture - Preliminary Blood - Venous NO GROWTH AFTER 3 DAYS Anaerobic Blood Culture - Preliminary NO GROWTH AFTER 3 DAYS 01/21/18 00:50 Aerobic Blood Culture - Preliminary Blood - Venous - Lab Draw NO GROWTH AFTER 1 DAY Anaerobic Blood Culture - Preliminary NO GROWTH AFTER 1 DAY 01/21/18 00:55 Aerobic Blood Culture - Preliminary Blood - Venous NO GROWTH AFTER 1 DAY Anaerobic Blood Culture - Final Med Orders - Current: Current Medications Aspirin (Halfprin) 81 mg PO DAILY [facility] Last Admin: 01/23/18 08:51 Dose: 81 mg Docusate Sodium (Colace) 100 mg PO BID [facility] Last Admin: 01/23/18 08:50 Dose: 100 mg Enoxaparin Sodium (Lovenox) 80 mg SUBCUT Q12HR [facility] Last Admin: 01/23/18 08:51 Dose: 80 mg Piperacillin Sod/Tazobactam (Sod 3.375 gm/ Sodium Chloride) 100 mls @ 200 mls/ hr IV Q6H [facility] Last Admin: 01/23/18 11:59 Dose: 200 mls/hr Levofloxacin (Levaquin) 500 mg PO Q24H [facility] Omeprazole (Omeprazole) 20 mg PO ACBRK [facility] Last Admin: 01/23/18 06:01 Dose: 20 mg Ondansetron HCl (Zofran) 4 mg IV Q4H PRN PRN Reason: Nausea/Vomiting Last Admin: 01/23/18 06:00 Dose: 4 mg Oxycodone/Acetaminophen (Percocet 325-5 Mg) 2 tab PO Q6H PRN PRN Reason: Pain (moderate 4-6) Last Admin: 01/21/18 21:22 Dose: 2 tab Prednisone (Prednisone) 5 mg PO DAILY [facility] Last Admin: 01/23/18 08:51 Dose: 5 mg Senna/Docusate Sodium (Senna Plus) 1 tab PO BID PRN PRN Reason: Constipation Last Admin: 01/23/18 06:01 Dose: 1 tab Sodium Chloride (Saline Flush) 10 ml FLUSH ASDIRECTED PRN PRN Reason: Keep Vein Open Last Admin: 01/23/18 06:00 Dose: 10 ml Discontinued Medications Albuterol/Ipratropium (Duoneb 3.0-0.5 Mg/3 Ml) 3 ml NEB ONETIME ONE Stop: 01/20/18 05:54 Last Admin: 01/20/18 05:57 Dose: 3 ml Enoxaparin Sodium (Lovenox) 75 mg SUBCUT ONETIME ONE Stop: 01/20/18 07:45 Last Admin: 01/20/18 08:07 Dose: 75 mg Hydromorphone HCl (Dilaudid) 1 mg IVPUSH ONETIME ONE Stop: 01/20/18 07:36 Last Admin: 01/20/18 07:43 Dose: 1 mg Sodium Chloride (Normal Saline) 1,000 mls @ 125 mls/hr IV .BOLUS ONE Stop: 01/20/18 13:55 Last Infusion: 01/20/18 15:35 Dose: Infused Iopamidol (Isovue-370 (76%)) 100 ml IVPUSH ONETIME ONE Stop: 01/20/18 06:42 Last Admin: 01/20/18 06:41 Dose: 100 ml Morphine Sulfate (Morphine) 1 mg IVPUSH Q2H PRN PRN Reason: Pain (severe 7-10) Last Admin: 01/21/18 04:11 Dose: 1 mg Morphine Sulfate (Morphine) 2 mg IVPUSH ONETIME ONE Stop: 01/20/18 20:17 Last Admin: 01/20/18 20:29 Dose: 2 mg Oxycodone/Acetaminophen (Percocet 325-5 Mg) 1 tab PO Q4H PRN PRN Reason: Pain (moderate 4-6) Last Admin: 01/21/18 08:55 Dose: 1 tab - Exam Quality Assessment: Reports: DVT Prophylaxis General: Reports: Alert, Oriented HEENT: Reports: Pupils Equal, Pupils Reactive, EOMI, Mucous Membr. Moist/[place] Neck: Reports: Supple Lungs: Reports: Clear to Auscultation, Normal Respiratory Effort Cardiovascular: Reports: Regular Rate, Regular Rhythm GI/Abdominal Exam: Normal Bowel Sounds, Soft, Non-Tender, No Organomegaly, No Distention, No Abnormal Bruit, No Mass, Pelvis Stable (Male) Exam: No Hernia, Normal Inspection, Normal Prostate, Circumcised Rectal (Males) Exam: Normal Exam, Normal Rectal Tone, Prostate Normal Back Exam: Reports: Normal Inspection, Full Range of Motion Extremities: Normal Inspection, Normal Range of Motion, Non-Tender, No Pedal Edema, Normal Capillary Refill Skin: Reports: Warm, Dry, Intact Wound/Incisions: Reports: Healing Well Neurological: Reports: No New Focal Deficit Psy/Mental Status: Reports: Alert, Normal Affect, Normal Mood
[2018-01-23] MEDS ORDERED: Levofloxacin 500 MG Tab PO SCH (13:00)
[2018-01-23 16:27] VITALS: BP 138/81
== END 2018-01-23 14:00 | disposition home or self-care (01) ==
LOC: DL.ED 05:39 → DL.MS 08:47 → UNDOADMOB 08:47 → INTOOBSV 08:47 → DL.MS 09:27
PROVIDERS: ADMIT Hospitalist; ATTEND Hospitalist
DX: I26.99 Other pulmonary embolism without acute cor pulmonale (principal); R07.1 Chest pain on breathing; J44.9 Chronic obstructive pulmonary disease, unspecified; F17.210 Nicotine dependence, cigarettes, uncomplicated; M32.9 Systemic lupus erythematosus, unspecified; J18.9 Pneumonia, unspecified organism; K21.9 Gastro-esophageal reflux disease without esophagitis; Z79.899 Other long term (current) drug therapy; Z88.0 Allergy status to penicillin
CPT/HCPCS: 36415; 71045; 71260; 80053; 81001; 82150; 82550; 83605; 83690; 83735; 83880; 84484; 85025; 85027; 85379; 87040; 93005; 96361; 96372; 96374; 99285; A9270; J1170; J1650; J2270; J2405; J2543; J7030; J7050; Q9967; J7620-GY

== ENCOUNTER 2019-08-11 14:33 | Inpatient (IN) | payer MEDICAID, OTHER ==
--- NOTE | 2019-08-11 14:47 | EDM.PDOC ---
ED HPI GENERAL MEDICAL PROBLEM - General Chief Complaint: Neurological Problem Stated Complaint: UNKNOWN: Seizure, combative Time Seen by Provider: 08/11/19 14:45 Source of Information: Reports: Patient, EMS, Family (), Old Records, Police , RN, RN Notes Reviewed History Limitations: Reports: Altered Mental Status, Combative/Threatening - History of Present Illness INITIAL COMMENTS - FREE TEXT/NARRATIVE: Pt arrived from home by ambulance with several police officers assisting the EMS crew due to extreme combativeness and confusion, felt likely to be postictal. Pt was unable to provide any history. Approximately 20 minutes after the pt's arrival to the ER his arrived and provided the following Hx: Pt woke this morning and told his that he felt "ill" and was either having a lupus flare up, or was getting the "flu". Pt reportedly woke with fever and chills, cough, nausea, and diarrhea. Pt has Hx of SLE and is on chronic Prednisone tx. He was prescribed Levaquin about 3 weeks ago for an ear infection , but doesn't think he took all of it as prescribed. Denies alcohol, drugs , any fall or injury. No history of seizures prior to today. reports hearing pt make a loud groaning/howling sound while he was napping on the sofa, then he tensed up in a rigid posture and began shaking. She rolled him onto the floor and onto his side so he wouldn't choke. is familiar in caring for people with seizures, so she noted the time, called 911, and reports the seizure lasted 7 full minutes. Denies recent travel, or known contact with any confirmed or suspected Covid-19 individuals. Onset: Today, Sudden Location: Reports: Generalized Severity: Severe Improves with: Reports: None Worsens with: Reports: None Associated Symptoms: Reports: No Other Symptoms - Related Data Allergies Allergy/AdvReac Type Severity Reaction Status Date / Time amoxicillin Allergy Rash Verified 08/11/19 14:54 Home Meds: Home Meds Hydrocodone/Acetaminophen [Hydrocodon-Acetaminophen 5-325] 1 tab PO ASDIRECTED PRN 11/12/15 [History] predniSONE [Prednisone] 5 mg PO DAILY 11/12/15 [History] Omeprazole 20 mg PO DAILY 01/22/16 [History] Clindamycin HCl [Cleocin] 1 cap PO BID 01/23/16 [History] Apixaban [Eliquis] 10 mg PO BID 01/23/18 [History] levoFLOXacin [Levaquin] 500 mg PO Q24H 7 Days #7 tablet 01/23/18 [Rx] Past Medical History HEENT History: Reports: Impaired Vision Other HEENT History: CORRECTIVE LENS Respiratory History: Reports: PE Gastrointestinal History: Reports: GERD Musculoskeletal History: Reports: SLE Immunologic History: Reports: Immunosuppression (Chronic prednisone tx.), SLE Dermatologic History: Reports: Cellulitis - Past Surgical History HEENT Surgical History: Reports: Oral Surgery Respiratory Surgical History: Reports: None GI Surgical History: Reports: Colonoscopy, EGD Musculoskeletal Surgical History: Reports: None Dermatological Surgical History: Reports: None Social & Family History - Family History Family Medical History: Noncontributory - Tobacco Use Smoking Status *Q: Current Some Day Smoker Tobacco Use Within Last Twelve Months: Cigarettes - Caffeine Use Caffeine Use: Reports: Coffee, Soda, Tea Other Caffeine Use: OCCASIONALLY - Alcohol Use Alcohol Use History: No - Recreational Drug Use Recreational Drug Use: No - Living Situation & Occupation Living situation: Reports: , with Spouse ED ROS GENERAL - Review of Systems Review Of Systems: Unable To Obtain Reason Not Obtained: Combative pt with altered mental status - Physical Exam Exam: See Below Exam Limited By: Combative/Threatening (Altered Mental Status) General Appearance: Alert, Other (Postictal confusion) Eye Exam: Bilateral Eye: EOMI, PERRL (sluggish reactivity initially, then normal after 30 mins.) Ears: Normal External Exam, Hearing Grossly Normal Nose: Normal Inspection, Normal Mucosa, No Blood Throat/Mouth: Normal Inspection, Normal Lips, Normal Teeth, Normal Gums, Normal Oropharynx, Normal Voice, No Airway Compromise. No: Evidence of Tongue Biting Head Exam: Atraumatic, Normocephalic Neck: Normal Inspection, Supple, Non-Tender, Full Range of Motion. No: Lymphadenopathy (L), Lymphadenopathy (R) Respiratory/Chest: No Respiratory Distress, Lungs Clear, Normal Breath Sounds, No Accessory Muscle Use, Chest Non-Tender Cardiovascular: Normal Peripheral Pulses, Regular Rate, Rhythm, No Edema, Tachycardia GI/Abdominal: Normal Bowel Sounds, Soft, Non-Tender, No Organomegaly, No Distention, No Abnormal Bruit, No Mass Neuro Exam (Abbreviated): Alert, CN II-XII Intact, No Motor/Sensory Deficits, Confused (on arrival and for first 20 minutes post-arrival.) Back Exam: Normal Inspection, Full Range of Motion Extremities: Normal Inspection, Normal Range of Motion, Non-Tender, No Pedal Edema, Normal Capillary Refill Psychiatric: Normal Affect, Normal Mood Skin Exam: Warm, Intact, Normal Color, No Rash, Diaphoretic. No: Ecchymosis, Jaundice, Petechiae Course - Vital Signs Last Recorded V/S: Last Vital Signs Temp 97.1 F 08/11/19 14:42 Pulse 119 H 08/11/19 14:42 Resp 28 H 08/11/19 14:42 BP 130/85 08/11/19 14:42 Pulse Ox 98 08/11/19 14:42 - Orders/Labs/Meds Orders: Active Orders 24 hr Category Date Time Status Blood Glucose Check, Bedside [RC] ONETIME Care 08/11/19 14:48 Active Peripheral IV Care [RC] . DIRECTED Care 08/11/19 14:48 Active Chest 1V Frontal [CR] Stat Exams 08/11/19 15:52 Taken CORONAVIRUS COVID-19 PCR PHL [MREF] Stat Lab 08/11/19 15:17 Received CULTURE BLOOD [BC] Stat Lab 08/11/19 15:03 Received CULTURE BLOOD [BC] Stat Lab 08/11/19 15:38 Received DRUG SCREEN URINE BIORAD [URCHEM] Stat Lab 08/11/19 14:48 Ordered LACTIC ACID [CHEM] Stat Lab 08/11/19 17:09 Ordered UA RFX SHARDA AND CULT IF INDIC [URIN] Stat Lab 08/11/19 14:48 Ordered Azithromycin [Zithromax] 500 mg Med 08/11/19 17:10 Active Sodium Chloride 0.9% [Normal Saline (AdvBag)] 250 ml IV ONETIME Sodium Chloride 0.9% [Saline Flush] Med 08/11/19 14:48 Active 10 ml FLUSH ASDIRECTED PRN cefTRIAXone [Rocephin] 1 gm Med 08/11/19 17:10 Active Sodium Chloride 0.9% [Normal Saline] 50 ml IV ONETIME Blood Culture x2 Reflex Set [OM.PC] Stat Oth 08/11/19 14:47 Ordered Isolation [COMM] Routine Oth 08/11/19 14:48 Active Peripheral IV Insertion Adult [OM.PC] Stat Oth 08/11/19 14:47 Ordered Medication Orders Azithromycin 500 mg/ Sodium (Chloride) 250 mls @ 250 mls/hr IV ONETIME ONE Stop: 08/11/19 18:09 Ceftriaxone Sodium 1 gm/ (Sodium Chloride) 50 mls @ 100 mls/hr IV ONETIME ONE Stop: 08/11/19 17:39 Sodium Chloride (Saline Flush) 10 ml FLUSH ASDIRECTED PRN PRN Reason: Keep Vein Open Last Admin: 08/11/19 16:13 Dose: 10 ml Admin: 08/11/19 15:04 Dose: 10 ml Labs: Laboratory Tests 08/11/19 08/11/19 08/11/19 Range/Units 15:03 15:03 15:03 WBC 6.3 (5.0-10.0) 10^3/uL RBC 4.59 L (4.6-6.2) 10^6/uL Hgb 14.4 D (14.0-18.0) g/dL Hct 42.4 (40.0-54.0) % MCV 92.4 D (80-100) fL MCH 31.4 (27.0-34.0) pg MCHC 34.0 (33.0-35.0) g/dL Plt Count 153 (150-450) 10^3/uL Neut % (Auto) 66.6 (42.2-75.2) % Lymph % (Auto) 22.4 (20.5-50.1) % Snyder % (Auto) 8.8 H (2-8) % Eos % (Auto) 1.9 (1.0-3.0) % Baso % (Auto) 0.3 (0.0-1.0) % Sodium 139 (136-145) mmol/L Potassium 3.4 L (3.5-5.1) mmol/L Chloride 101 (98-107) mmol/L Carbon Dioxide 16 L (21-32) mmol/L Anion Gap 25.4 H (7-13) mEq/L BUN 11 (7-18) mg/dL Creatinine 1.30 (0.70-1.30) mg/dL Est Cr Clr Drug Dosing 56.70 mL/min Estimated GFR (MDRD) 56 BUN/Creatinine Ratio 8.5 (No establ ref range) Glucose 129 H (74-99) mg/dL Lactic Acid (0.4-2.0) mmol/L Calcium 8.5 (8.5-10.1) mg/dL Ferritin 217 (26-388) mg/mL Total Bilirubin 0.3 (0.2-1.0) mg/dL AST 20 (15-37) U/L ALT 19 (16-63) U/L Alkaline Phosphatase 73 (46-116) U/L Lactate Dehydrogenase (85-227) U/L Creatine Kinase 158 (39-308) U/L C-Reactive Protein (0.0-0.9) mg/dL Total Protein 8.6 H (6.4-8.2) g/dL Albumin 3.7 (3.4-5.0) g/dL Globulin 4.9 Albumin/Globulin Ratio 0.8 Amylase 79 (25-115) U/L Lipase 154 (73-393) U/L Ethyl Alcohol < 3 (0) mg/dL 08/11/19 08/11/19 Range/Units 15:03 15:03 WBC (5.0-10.0) 10^3/uL RBC (4.6-6.2) 10^6/uL Hgb (14.0-18.0) g/dL Hct (40.0-54.0) % MCV (80-100) fL MCH (27.0-34.0) pg MCHC (33.0-35.0) g/dL Plt Count (150-450) 10^3/uL Neut % (Auto) (42.2-75.2) % Lymph % (Auto) (20.5-50.1) % Snyder % (Auto) (2-8) % Eos % (Auto) (1.0-3.0) % Baso % (Auto) (0.0-1.0) % Sodium (136-145) mmol/L Potassium (3.5-5.1) mmol/L Chloride (98-107) mmol/L Carbon Dioxide (21-32) mmol/L Anion Gap (7-13) mEq/L BUN (7-18) mg/dL Creatinine (0.70-1.30) mg/dL Est Cr Clr Drug Dosing mL/min Estimated GFR (MDRD) BUN/Creatinine Ratio (No establ ref range) Glucose (74-99) mg/dL Lactic Acid 11.4 H* (0.4-2.0) mmol/L Calcium (8.5-10.1) mg/dL Ferritin (26-388) mg/mL Total Bilirubin (0.2-1.0) mg/dL AST (15-37) U/L ALT (16-63) U/L Alkaline Phosphatase (46-116) U/L Lactate Dehydrogenase 211 (85-227) U/L Creatine Kinase (39-308) U/L C-Reactive Protein < 0.2 (0.0-0.9) mg/dL Total Protein (6.4-8.2) g/dL Albumin (3.4-5.0) g/dL Globulin Albumin/Globulin Ratio Amylase (25-115) U/L Lipase (73-393) U/L Ethyl Alcohol (0) mg/dL Influenza A/B: negative Covid-19: pending (send out) Meds: Medications Generic Name Dose Route Start Last Admin Trade Name Freq PRN Reason Stop Dose Admin Azithromycin 500 mg/ Sodium 250 mls @ 250 mls/hr 08/11/19 17:10 Chloride IV 08/11/19 18:09 ONETIME ONE Ceftriaxone Sodium 1 gm/ 50 mls @ 100 mls/hr 08/11/19 17:10 Sodium Chloride IV 08/11/19 17:39 ONETIME ONE Sodium Chloride 10 ml 08/11/19 14:48 08/11/19 16:13 Saline Flush FLUSH 10 ml ASDIRECTED PRN Administration Keep Vein Open Discontinued Medications Generic Name Dose Route Start Last Admin Trade Name Freq PRN Reason Stop Dose Admin Lorazepam 2 mg 08/11/19 14:51 08/11/19 14:33 Ativan IM 08/11/19 14:52 2 mg ONETIME ONE Administration Ondansetron HCl 4 mg 08/11/19 15:21 08/11/19 16:13 Zofran IV 08/11/19 15:22 4 mg ONETIME ONE Administration - Radiology Interpretation Free Text/Narrative:: CT Head: motion artifact, but no acute finding identified per phone report from radiologist. [facility] Final Radiology Report Call: [phone] assistance Online chat: [email or web address] Name: HILLARY CHONG Age: 64Years M Date: 08/11/2019 SSN: -- : [id number] Study: XR CHEST 1 VIEW FRONTAL Requesting Physician: KIM ROSALES Images: 1 Addl Studies: Provided Clinical History: Contrast: Contrast Medium: Contrast Amount: Contrast Method: Page 1 of 2 PROCEDURE INFORMATION: Exam: XR Chest, 1 View Exam date and time: 08/11/2019 4:19 PM Age: 64 years old Clinical indication: Cough and fever TECHNIQUE: Imaging protocol: XR of the chest Views: 1 view. COMPARISON: CR Chest 1V Frontal 01/21/2018 12:39 PM FINDINGS: Lungs: There is an 11 mm long wire shaped density over the right lung apex. This extends beyond the border of the 2nd rib and may be extrinsic to the patient. There is parenchymal scarring in the right lung base which is similar to the previous chest x-ray. The prominent density previously noted in the left lower lobe is no longer identified. Pleural space: Unremarkable. No pleural effusion. No pneumothorax. Heart/Mediastinum: The right heart border is partially obscured. The right heart border was clear on prior chest x-ray. There may be a small right middle lobe pneumonia. Bones/joints: See "Lungs" finding. IMPRESSION: 1. Parenchymal scarring in the right lung base which is similar to previous chest x-ray. 2. The right heart border is obscured. Right middle lobe pneumonia is suspected. 3. Wire shaped radiopaque density at the right lung apex which may be artifact extrinsic to the patient. Thank you for allowing us to participate in the care of your patient. HILLARY CHONG | Final Radiology Report CONFIDENTIALITY STATEMENT This report is intended only for use by the referring physician, and only in accordance with law. If you received this in error, call [phone]. Page 2 of 2 Dictated and Authenticated by: Scott King DO 08/11/2019 4:54 PM Central Time ([place] & [place]) - Re-Assessments/Exams Free Text/Narrative Re-Assessment/Exam: 08/11/19 16:54 After approx. 20 mins. from the time of arrival the postictal confusion and combativeness resolved. Pt could not recall the events preceding or following the seizure. He denies headache, neck pain, or any other injury. He c/o only of chills, nausea, and myalgias. Free Text/Narrative Re-Assessment/Exam: 08/11/19 17:27 *No transfer available by ground or air due to winter weather conditions. I made every attempt to transfer to the pt to [facility], but transfer is not available. Dr. Zamora is willing to admit the pt here until conditions are safe for transfer. Departure - Departure Time of Disposition: 17:30 (admitted to Dr. Silverman) Disposition: Admitted As Inpatient 68 Condition: Undetermined Clinical Impression: New onset seizure, History of systemic lupus erythematosus (SLE), History of pulmonary embolism, Anticoagulated Pneumonia Qualifiers: Pneumonia type: due to unspecified organism Laterality: right Lung location: middle lobe of lung Qualified Code(s): J18.9 - Pneumonia, unspecified organism - Discharge Information *PRESCRIPTION DRUG MONITORING PROGRAM REVIEWED*: Not Applicable *COPY OF PRESCRIPTION DRUG MONITORING REPORT IN PATIENT MANNY: Not Applicable Forms: ED Department Discharge Sepsis Event Note - Focused Exam Vital Signs: Vital Signs Temp Pulse Resp BP Pulse Ox 08/11/19 14:42 97.1 F 119 H 28 H 130/85 98 Date Exam was Performed: 08/11/19 Time Exam was Performed: 17:27 - My Orders Last 24 Hours: My Active Orders 08/11/19 14:47 Blood Culture x2 Reflex Set [OM.PC] Stat Peripheral IV Insertion Adult [OM.PC] Stat 08/11/19 14:48 Blood Glucose Check, Bedside [RC] ONETIME Peripheral IV Care [RC] . DIRECTED DRUG SCREEN URINE BIORAD [URCHEM] Stat UA RFX SHARDA AND CULT IF INDIC [URIN] Stat Sodium Chloride 0.9% [Saline Flush] 10 ml FLUSH ASDIRECTED PRN Isolation [COMM] Routine 08/11/19 15:03 CULTURE BLOOD [BC] Stat 08/11/19 15:17 CORONAVIRUS COVID-19 PCR PHL [MREF] Stat 08/11/19 15:38 CULTURE BLOOD [BC] Stat 08/11/19 15:52 Chest 1V Frontal [CR] Stat 08/11/19 17:09 LACTIC ACID [CHEM] Stat 08/11/19 17:10 Azithromycin [Zithromax] 500 mg Sodium Chloride 0.9% [Normal Saline (AdvBag)] 250 ml IV ONETIME cefTRIAXone [Rocephin] 1 gm Sodium Chloride 0.9% [Normal Saline] 50 ml IV ONETIME - Assessment/Plan Last 24 Hours: My Active Orders 08/11/19 14:47 Blood Culture x2 Reflex Set [OM.PC] Stat Peripheral IV Insertion Adult [OM.PC] Stat 08/11/19 14:48 Blood Glucose Check, Bedside [RC] ONETIME Peripheral IV Care [RC] . DIRECTED DRUG SCREEN URINE BIORAD [URCHEM] Stat UA RFX SHARDA AND CULT IF INDIC [URIN] Stat Sodium Chloride 0.9% [Saline Flush] 10 ml FLUSH ASDIRECTED PRN Isolation [COMM] Routine 08/11/19 15:03 CULTURE BLOOD [BC] Stat 08/11/19 15:17 CORONAVIRUS COVID-19 PCR PHL [MREF] Stat 08/11/19 15:38 CULTURE BLOOD [BC] Stat 08/11/19 15:52 Chest 1V Frontal [CR] Stat 08/11/19 17:09 LACTIC ACID [CHEM] Stat 08/11/19 17:10 Azithromycin [Zithromax] 500 mg Sodium Chloride 0.9% [Normal Saline (AdvBag)] 250 ml IV ONETIME cefTRIAXone [Rocephin] 1 gm Sodium Chloride 0.9% [Normal Saline] 50 ml IV ONETIME
[2019-08-11] MEDS ORDERED: LORazepam 2 MG/ML SDV IM ONE (14:51)
[2019-08-11] MEDS: Sodium Chloride 0.9% 10 ML Syringe FLUSH PRN ×2 (15:04→16:13)
[2019-08-11] MEDS ORDERED: Ondansetron 4 MG/2 ML SDV IV ONE (15:21)
--- NOTE | 2019-08-11 15:28 | CT ---
EXAMINATION: Head wo Cont SEX: Male AGE: 64 years CLINICAL HISTORY: 64-year-old male new onset seizure at home. Combative. No known trauma or malignancies. Fever. Scan technique: Volume acquisition of data emergency unenhanced CT scan of the head and brain obtained with patient lying supine on the Siemens multislice scanner [place], [place]. All data archived in the PACS system for storage, reformatting and study (note: Patient motion artifact resolved with reconstructions). INTERPRETATION: Negative exam. 1. Uniformly thick bony calvarium without sign of skull fracture, underlying brain contusion or epidural/subdural hematoma. 2. Symmetric clear pneumatization of the paranasal and mastoid sinuses. 3. No sign of supratentorial or posterior fossa mass lesion. No hydrocephalus. 4. No ischemic infarct or signs of encephalomalacia. 5. No sign of acute intracerebral, intraventricular or subarachnoid bleed. 6. Cerebellum and brainstem unremarkable. Physiologic midline pineal and symmetric choroid plexus calcifications.
[2019-08-11 15:33] LABS: ANION GAP 25.4 mEq/L (7-13); CHLORIDE,CL 101 mmol/L (98-107); SODIUM,NA 139 mmol/L (136-145)
[2019-08-11] MEDS ORDERED: Azithromycin 500 MG in Sodium Chloride 0.9% 250 ML IV ONE (17:10)
[2019-08-11] MEDS ORDERED: cefTRIAXone 1 GM in Sodium Chloride 0.9% 50 ML IV ONE (17:10)
[2019-08-11] MEDS ORDERED: Ondansetron 4 MG/2 ML SDV IVPUSH PRN (18:08)
[2019-08-11] MEDS ORDERED: Potassium Chloride 20 MEQ in Premix Bag 1 BAG IV ONE (18:08)
[2019-08-11] MEDS ORDERED: Acetaminophen 325 MG Tab PO PRN (18:08)
[2019-08-11] MEDS ORDERED: Acetaminophen/HYDROcodone 325-5 MG Tab PO PRN (18:13)
--- NOTE | 2019-08-11 18:23 | PCM.HP ---
H&P History of Present Illness - General Date of Service: 08/11/19 Admit Problem/Dx: Admission Diagnosis/Problem Admission Diagnosis/Problem Seizure - History of Present Illness Initial Comments - Free Text/Narative: Is a 64-year-old man with medical history of systemic lupus erythematosus who presented to the emergency room agitated and combative following a seizure that was witnessed by his at home. The patient has no prior history of seizure and on presentation was unable to provide history. The seizure was reportedly for about 7 minutes based on information provided by the . The patient woke up this morning and complained to the that he has not been feeling well since yesterday. He was having chills and intermittent fevers. Was having generalized body malaise and also started having diarrhea. Patient subsequently started having seizures. He was treated about 3 weeks ago with levofloxacin for a presumed ear infection. Patient has been on prednisone 10 mg daily for systemic lupus erythematosus. He thought he was having an SLE flare. - Related Data Allergies/Adverse Reactions: Allergies Allergy/AdvReac Type Severity Reaction Status Date / Time amoxicillin Allergy Rash Verified 08/11/19 14:54 Home Medications: Home Meds predniSONE [Prednisone] 5 mg PO DAILY 11/12/15 [History] Omeprazole 20 mg PO DAILY 01/22/16 [History] Apixaban [Eliquis] 10 mg PO BID 01/23/18 [History] Past Medical History HEENT History: Reports: Impaired Vision Other HEENT History: CORRECTIVE LENS Cardiovascular History: Reports: None Respiratory History: Reports: PE Gastrointestinal History: Reports: GERD Genitourinary History: Reports: None Musculoskeletal History: Reports: SLE Neurological History: Reports: None Psychiatric History: Reports: None Hematologic History: Reports: None Immunologic History: Reports: Immunosuppression (Chronic prednisone tx.), SLE Oncologic (Cancer) History: Reports: None Dermatologic History: Reports: Cellulitis - Infectious Disease History Infectious Disease History: Reports: Chicken Pox, Measles, Mumps - Past Surgical History HEENT Surgical History: Reports: Oral Surgery Respiratory Surgical History: Reports: None GI Surgical History: Reports: Colonoscopy, EGD Musculoskeletal Surgical History: Reports: None Dermatological Surgical History: Reports: None Social & Family History - Family History Family Medical History: Noncontributory - Tobacco Use Smoking Status *Q: Current Some Day Smoker Years of Tobacco use: 5 Packs/Tins Daily: 0.5 Second Hand Smoke Exposure: No - Caffeine Use Caffeine Use: Reports: Coffee, Soda, Tea Other Caffeine Use: OCCASIONALLY - Recreational Drug Use Recreational Drug Use: No - Living Situation & Occupation Living situation: Reports: , with Spouse H&P Review of Systems - Review of Systems: Review Of Systems: See Below General: Reports: Fever, Chills, Malaise Pulmonary: Reports: Shortness of Breath, Cough Cardiovascular: Reports: No Symptoms Gastrointestinal: Reports: Diarrhea, Nausea Musculoskeletal: Reports: No Symptoms Skin: Reports: No Symptoms Neurological: Reports: Seizure Exam - Exam Exam: See Below - Vital Signs Vital Signs: Last Vital Signs Temp 37.7 C 08/11/19 17:35 Pulse 101 H 08/11/19 17:35 Resp 18 08/11/19 17:35 BP 122/74 08/11/19 17:35 Pulse Ox 100 08/11/19 17:35 Weight: 68.039 kg - Exam General: Alert, Oriented Neck: Supple Lungs: Decreased Breath Sounds GI/Abdominal Exam: Normal Bowel Sounds, Soft Extremities: Normal Inspection Skin: Warm, Dry - Patient Data Lab Results Last 24 hrs: Laboratory Results - last 24 hr 08/11/19 08/11/19 08/11/19 Range/Units 15:03 15:03 15:03 WBC 6.3 (5.0-10.0) 10^3/uL RBC 4.59 L (4.6-6.2) 10^6/uL Hgb 14.4 D (14.0-18.0) g/dL Hct 42.4 (40.0-54.0) % MCV 92.4 D (80-100) fL MCH 31.4 (27.0-34.0) pg MCHC 34.0 (33.0-35.0) g/dL Plt Count 153 (150-450) 10^3/uL Neut % (Auto) 66.6 (42.2-75.2) % Lymph % (Auto) 22.4 (20.5-50.1) % Harper % (Auto) 8.8 H (2-8) % Eos % (Auto) 1.9 (1.0-3.0) % Baso % (Auto) 0.3 (0.0-1.0) % Sodium 139 (136-145) mmol/L Potassium 3.4 L (3.5-5.1) mmol/L Chloride 101 (98-107) mmol/L Carbon Dioxide 16 L (21-32) mmol/L Anion Gap 25.4 H (7-13) mEq/L BUN 11 (7-18) mg/dL Creatinine 1.30 (0.70-1.30) mg/dL Est Cr Clr Drug Dosing 56.70 mL/min Estimated GFR (MDRD) 56 BUN/Creatinine Ratio 8.5 (No establ ref range) Glucose 129 H (74-99) mg/dL Lactic Acid (0.4-2.0) mmol/L Calcium 8.5 (8.5-10.1) mg/dL Ferritin 217 (26-388) mg/mL Total Bilirubin 0.3 (0.2-1.0) mg/dL AST 20 (15-37) U/L ALT 19 (16-63) U/L Alkaline Phosphatase 73 (46-116) U/L Lactate Dehydrogenase (85-227) U/L Creatine Kinase 158 (39-308) U/L C-Reactive Protein (0.0-0.9) mg/dL Total Protein 8.6 H (6.4-8.2) g/dL Albumin 3.7 (3.4-5.0) g/dL Globulin 4.9 Albumin/Globulin Ratio 0.8 Amylase 79 (25-115) U/L Lipase 154 (73-393) U/L Ethyl Alcohol < 3 (0) mg/dL 08/11/19 08/11/19 08/11/19 Range/Units 15:03 15:03 17:30 WBC (5.0-10.0) 10^3/uL RBC (4.6-6.2) 10^6/uL Hgb (14.0-18.0) g/dL Hct (40.0-54.0) % MCV (80-100) fL MCH (27.0-34.0) pg MCHC (33.0-35.0) g/dL Plt Count (150-450) 10^3/uL Neut % (Auto) (42.2-75.2) % Lymph % (Auto) (20.5-50.1) % Harper % (Auto) (2-8) % Eos % (Auto) (1.0-3.0) % Baso % (Auto) (0.0-1.0) % Sodium (136-145) mmol/L Potassium (3.5-5.1) mmol/L Chloride (98-107) mmol/L Carbon Dioxide (21-32) mmol/L Anion Gap (7-13) mEq/L BUN (7-18) mg/dL Creatinine (0.70-1.30) mg/dL Est Cr Clr Drug Dosing mL/min Estimated GFR (MDRD) BUN/Creatinine Ratio (No establ ref range) Glucose (74-99) mg/dL Lactic Acid 11.4 H* 1.4 (0.4-2.0) mmol/L Calcium (8.5-10.1) mg/dL Ferritin (26-388) mg/mL Total Bilirubin (0.2-1.0) mg/dL AST (15-37) U/L ALT (16-63) U/L Alkaline Phosphatase (46-116) U/L Lactate Dehydrogenase 211 (85-227) U/L Creatine Kinase (39-308) U/L C-Reactive Protein < 0.2 (0.0-0.9) mg/dL Total Protein (6.4-8.2) g/dL Albumin (3.4-5.0) g/dL Globulin Albumin/Globulin Ratio Amylase (25-115) U/L Lipase (73-393) U/L Ethyl Alcohol (0) mg/dL Result Diagrams: 08/11/19 15:03 08/11/19 15:03 Neil Results Last 24 hrs: Microbiology 08/11/19 15:17 Influenza Type A Antigen Screen - Final Nasal, Unspecified NEGATIVE INFLUENZA A VIRUS AG REFERENCE RANGE: NEGATIVE Influenza Type B Antigen Screen - Final NEGATIVE INFLUENZA B VIRUS AG REFERENCE RANGE: NEGATIVE Problem List Initiated/Reviewed/Updated: Yes Orders Last 24hrs: Active Orders 24 hr Category Date Time Status Admission Diagnosis [ADT] Stat ADT 08/11/19 17:43 Ordered Admission Status [Patient Status] [ADT] Routine ADT 08/11/19 17:43 Active Patient Status [ADT] Routine ADT 08/11/19 18:08 Ordered Cardiac Monitoring [RC] CONTINUOUS Care 08/11/19 18:09 Ordered Intake and Output [RC] QSHIFT Care 08/11/19 18:09 Ordered Oxygen Therapy [RC] PRN Care 08/11/19 18:08 Ordered Up ad Karen [RC] ASDIRECTED Care 08/11/19 18:08 Ordered VTE/DVT Education [RC] PER UNIT ROUTINE Care 08/11/19 18:08 Ordered Vital Signs [RC] Q4H Care 08/11/19 18:08 Ordered Regular Diet [DIET] Diet 08/11/19 Dinner Ordered Chest 1V Frontal [CR] Stat Exams 08/11/19 15:52 Taken BASIC METABOLIC PANEL,BMP [CHEM] AM Lab 08/12/19 05:11 Ordered CBC W/O DIFF,HEMOGRAM [HEME] AM Lab 08/12/19 05:11 Ordered CLOSTRIDIUM DIFFICILE TOX RFLX [MREF] Routine Lab 08/11/19 18:15 Ordered CORONAVIRUS COVID-19 PCR PHL [MREF] Stat Lab 08/11/19 15:17 Received CULTURE BLOOD [BC] Stat Lab 08/11/19 15:03 Received CULTURE BLOOD [BC] Stat Lab 08/11/19 15:38 Received CULTURE SPUTUM + SMEAR [RM] Routine Lab 08/11/19 18:08 Ordered DRUG SCREEN URINE BIORAD [URCHEM] Stat Lab 08/11/19 17:44 Ordered UA RFX NEIL AND CULT IF INDIC [URIN] Stat Lab 08/11/19 17:44 Ordered Acetaminophen [Tylenol] Med 08/11/19 18:08 Ordered 650 mg PO Q4H PRN Acetaminophen/HYDROcodone [[place] 325-5 MG] Med 08/11/19 18:13 Ordered 1 tab PO ASDIRECTED PRN Heparin Sodium Med 08/11/19 22:00 Ordered 5,000 units SUBCUT Q8HR Hydrocortisone Sod Succinate [Solu-CORTEF] Med 08/11/19 22:00 Ordered 100 mg IVPUSH Q8HR Ondansetron [Zofran] Med 08/11/19 18:08 Ordered 4 mg IVPUSH Q6H PRN Pharmacy to Dose - Vancomycin Med 08/11/19 18:15 Ordered 1 dose .XX ASDIRECTED Potassium Chloride [KCL 20 MEQ in Water 100 ML] 20 meq Med 08/11/19 18:08 Ordered Premix Bag 1 bag IV ONETIME Sodium Chloride 0.9% @ 125 MLS/HR (1000ml) Med 08/11/19 18:15 Ordered Sodium Chloride 0.9% [Normal Saline] 1,000 ml IV ASDIRECTED Sodium Chloride 0.9% [Saline Flush] Med 08/11/19 14:48 Active 10 ml FLUSH ASDIRECTED PRN cefTRIAXone [Rocephin] 2 gm Med 08/11/19 21:00 Ordered Sodium Chloride 0.9% [Normal Saline] 100 ml IV Q12HR Blood Culture x2 Reflex Set [OM.PC] Stat Ot 08/11/19 14:47 Ordered Isolation [COMM] Routine Ot 08/11/19 14:48 Active Isolation [COMM] Stat Ot 08/11/19 18:16 Ordered Peripheral IV Insertion Adult [OM.PC] Stat Ot 08/11/19 14:47 Ordered Resuscitation Status Routine Resus Stat 08/11/19 18:08 Ordered Medication Orders Acetaminophen (Tylenol) 650 mg PO Q4H PRN PRN Reason: Pain (Mild 1-3)/fever Hydrocodone Bitart/Acetaminophen ([place] 325-5 Mg) 1 tab PO ASDIRECTED PRN PRN Reason: Pain Heparin Sodium (Porcine) (Heparin Sodium) 5,000 units SUBCUT Q8HR KERI Hydrocortisone Sodium Succinate (Solu-Cortef) 100 mg IVPUSH Q8HR KERI Potassium Chloride 20 meq/ (Premix) 100 mls @ 50 mls/hr IV ONETIME ONE Stop: 08/11/19 20:07 Sodium Chloride (Normal Saline) 1,000 mls @ 125 mls/hr IV ASDIRECTED KERI Ceftriaxone Sodium 2 gm/ (Sodium Chloride) 100 mls @ 200 mls/hr IV Q12HR KERI Ondansetron HCl (Zofran) 4 mg IVPUSH Q6H PRN PRN Reason: Nausea/Vomiting Sodium Chloride (Saline Flush) 10 ml FLUSH ASDIRECTED PRN PRN Reason: Keep Vein Open Last Admin: 08/11/19 16:13 Dose: 10 ml Admin: 08/11/19 15:04 Dose: 10 ml Vancomycin HCl (Pharmacy To Dose - Vancomycin) 1 dose .XX ASDIRECTED [facility] Assessment/Plan Comment:: #.Acute encephalopathy This is likely because of post ictal state #. Seizure Patient has no prior history of seizure Reason for this is not obvious No definite evidence of meningitis at this point #. Probable pneumonia Chest x-ray suggested bilateral hazy densities more on the right compared to the left #. Possible sepsis #. Lactic acidosis This was secondary to seizure #. Acute enteritis Patient is having diarrhea We'll also need to rule out C. difficile colitis. Patient recently had antibiotics about 3 weeks ago #. Hypokalemia Serum potassium was 3.4 #. Systemic lupus erythematosus Has been on chronic steroid therapy prednisone 10 mg daily Plan: Start intravenous fluids Intravenous vancomycin Intravenous Rocephin Obtain MRI of the brain Start patient on intravenous lorazepam for seizures I recommended transferring this patient to [place] for neurologic evaluation and possible consideration of lumbar puncture. I was informed that there are no transport available to get the patient to [place] because of weather conditions
[2019-08-11] MEDS ORDERED: LORazepam 2 MG/ML SDV IVPUSH PRN (18:24)
[2019-08-11] MEDS: Sodium Chloride 0.9% 1,000 ML IV SCH (18:31)
[2019-08-11] MEDS: Hydrocortisone Sodium Succinate 100 MG/2 ML SDV IVPUSH SCH (21:31)
[2019-08-11] MEDS: Heparin Sodium 5,000 Units/ML Vial SUBCUT SCH (21:32)
[2019-08-11] MEDS: cefTRIAXone 2 GM in Sodium Chloride 0.9% 100 ML IV SCH (21:34)
[2019-08-12] MEDS: Sodium Chloride 0.9% 1,000 ML IV SCH (04:55)
[2019-08-12] MEDS ORDERED: Vancomycin 750 MG SDV ONE (05:25)
[2019-08-12] MEDS: Heparin Sodium 5,000 Units/ML Vial SUBCUT SCH (05:53)
[2019-08-12] MEDS: Hydrocortisone Sodium Succinate 100 MG/2 ML SDV IVPUSH SCH (05:56)
[2019-08-12 07:03] LABS: ANION GAP 18.8 mEq/L (7-13); CHLORIDE,CL 107 mmol/L (98-107); SODIUM,NA 142 mmol/L (136-145)
[2019-08-12] MEDS: cefTRIAXone 2 GM in Sodium Chloride 0.9% 100 ML IV SCH (08:02)
[2019-08-12 10:12] VITALS: BP 141/72; PULSE 85
--- NOTE | 2019-08-12 10:42 | PCM.DCSUM1 ---
Discharge Summary - Hospital Course Free Text/Narrative:: Patient had a witnessed seizure at home and was brought to the emergency room encephalopathic. Seizure was witnessed by his significant other. The patient was also having fever, chills, shortness of breath and we proceeded to send sample for sam virus 19. Results are pending. He was started on antibiotics because of pneumonia. Patient will be transferred to a higher level of care because of the need for neurology evaluation and MRI. Require lumbar puncture to exclude meningitis #.Acute encephalopathy This is likely because of post ictal state #. Seizure Patient has no prior history of seizure Reason for this is not obvious No definite evidence of meningitis at this point #. Probable pneumonia Chest x-ray suggested bilateral hazy densities more on the right compared to the left #. Possible sepsis #. Lactic acidosis This was secondary to seizure #. Acute enteritis Patient is having diarrhea We'll also need to rule out C. difficile colitis. Patient recently had antibiotics about 3 weeks ago #. Hypokalemia Serum potassium was 3.4 #. Systemic lupus erythematosus Has been on chronic steroid therapy prednisone 10 mg daily - Discharge Data Discharge Date: 08/12/19 Discharge Disposition: DC/Tfer to Acute Hospital 02 Condition: Good - Referral to Home Health Primary Care Physician: PCP None - Discharge Plan *PRESCRIPTION DRUG MONITORING PROGRAM REVIEWED*: Not Applicable *COPY OF PRESCRIPTION DRUG MONITORING REPORT IN PATIENT MANNY: Not Applicable Home Medications: Home Meds predniSONE [Prednisone] 10 mg PO DAILY 11/12/15 [History] Omeprazole 20 mg PO DAILY 01/22/16 [History] Apixaban [Eliquis] 10 mg PO BID 01/23/18 [History] Referrals: PCP,Unobtain [Ordering Only Provider] - - Discharge Summary/Plan Comment DC Time >30 min.: No - Review of Systems General: Reports: Chills Pulmonary: Reports: No Symptoms Cardiovascular: Reports: No Symptoms Gastrointestinal: Reports: No Symptoms Musculoskeletal: Reports: No Symptoms Skin: Reports: No Symptoms - Patient Data Vitals - Most Recent: Last Vital Signs Temp 37.7 C 08/12/19 10:12 Pulse 85 08/12/19 10:12 Resp 18 08/12/19 10:12 BP 141/72 H 08/12/19 10:12 Pulse Ox 97 08/12/19 10:12 Weight - Most Recent: 68.039 kg I&O - Last 24 hours: Intake & Output 08/11/19 08/12/19 08/12/19 22:59 06:59 14:59 Intake Total 790 1080 200 Output Total 380 Balance 790 700 200 Lab Results - Last 24 hrs: Laboratory Results - last 24 hr 08/11/19 08/11/19 08/11/19 Range/Units 14:57 15:03 15:03 WBC 6.3 (5.0-10.0) 10^3/uL RBC 4.59 L (4.6-6.2) 10^6/uL Hgb 14.4 D (14.0-18.0) g/dL Hct 42.4 (40.0-54.0) % MCV 92.4 D (80-100) fL MCH 31.4 (27.0-34.0) pg MCHC 34.0 (33.0-35.0) g/dL Plt Count 153 (150-450) 10^3/uL Neut % (Auto) 66.6 (42.2-75.2) % Lymph % (Auto) 22.4 (20.5-50.1) % [place] % (Auto) 8.8 H (2-8) % Eos % (Auto) 1.9 (1.0-3.0) % Baso % (Auto) 0.3 (0.0-1.0) % Sodium 139 (136-145) mmol/L Potassium 3.4 L (3.5-5.1) mmol/L Chloride 101 (98-107) mmol/L Carbon Dioxide 16 L (21-32) mmol/L Anion Gap 25.4 H (7-13) mEq/L BUN 11 (7-18) mg/dL Creatinine 1.30 (0.70-1.30) mg/dL Est Cr Clr Drug Dosing 56.70 mL/min Estimated GFR (MDRD) 56 BUN/Creatinine Ratio 8.5 (No establ ref range) Glucose 129 H (74-99) mg/dL POC Glucose 114 H (70-105) mg/dl Lactic Acid (0.4-2.0) mmol/L Calcium 8.5 (8.5-10.1) mg/dL Ferritin (26-388) mg/mL Total Bilirubin 0.3 (0.2-1.0) mg/dL AST 20 (15-37) U/L ALT 19 (16-63) U/L Alkaline Phosphatase 73 (46-116) U/L Lactate Dehydrogenase (85-227) U/L Creatine Kinase 158 (39-308) U/L C-Reactive Protein (0.0-0.9) mg/dL Total Protein 8.6 H (6.4-8.2) g/dL Albumin 3.7 (3.4-5.0) g/dL Globulin 4.9 Albumin/Globulin Ratio 0.8 Amylase 79 (25-115) U/L Lipase 154 (73-393) U/L Urine Color (YELLOW) Urine Appearance (CLEAR) Urine pH (5.0-9.0) Ur Specific [place] (1.005-1.030) Urine Protein (NEGATIVE) Urine Glucose (UA) (NEGATIVE) Urine Ketones (NEGATIVE) Urine Occult Blood (NEGATIVE) Urine Nitrite (NEGATIVE) Urine Bilirubin (NEGATIVE) Urine Urobilinogen (0.2-1.0) mg/dL Ur Leukocyte Esterase (NEGATIVE) Urine RBC /HPF Urine WBC (0-5/HPF) /HPF Ur Epithelial Cells (NOT SEEN) /HPF Amorphous Sediment (NOT SEEN) /HPF Urine Bacteria (0-FEW/HPF) /HPF Urine Mucus (NOT SEEN) /LPF Urine Other Urine Opiates Screen (NEGATIVE) Ur Oxycodone Screen (NEGATIVE) Urine Methadone Screen (NEGATIVE) Ur Barbiturates Screen (NEGATIVE) U Tricyclic Antidepress (NEGATIVE) Ur Phencyclidine Scrn (NEGATIVE) Ur Amphetamine Screen (NEGATIVE) U Methamphetamines Scrn (NEGATIVE) Urine MDMA Screen (NEGATIVE) U Benzodiazepines Scrn (NEGATIVE) Urine Cocaine Screen (NEGATIVE) U Marijuana (THC) Screen (NEGATIVE) Ethyl Alcohol < 3 (0) mg/dL 08/11/19 08/11/19 08/11/19 Range/Units 15:03 15:03 15:03 WBC (5.0-10.0) 10^3/uL RBC (4.6-6.2) 10^6/uL Hgb (14.0-18.0) g/dL Hct (40.0-54.0) % MCV (80-100) fL MCH (27.0-34.0) pg MCHC (33.0-35.0) g/dL Plt Count (150-450) 10^3/uL Neut % (Auto) (42.2-75.2) % Lymph % (Auto) (20.5-50.1) % [place] % (Auto) (2-8) % Eos % (Auto) (1.0-3.0) % Baso % (Auto) (0.0-1.0) % Sodium (136-145) mmol/L Potassium (3.5-5.1) mmol/L Chloride (98-107) mmol/L Carbon Dioxide (21-32) mmol/L Anion Gap (7-13) mEq/L BUN (7-18) mg/dL Creatinine (0.70-1.30) mg/dL Est Cr Clr Drug Dosing mL/min Estimated GFR (MDRD) BUN/Creatinine Ratio (No establ ref range) Glucose (74-99) mg/dL POC Glucose (70-105) mg/dl Lactic Acid 11.4 H* (0.4-2.0) mmol/L Calcium (8.5-10.1) mg/dL Ferritin 217 (26-388) mg/mL Total Bilirubin (0.2-1.0) mg/dL AST (15-37) U/L ALT (16-63) U/L Alkaline Phosphatase (46-116) U/L Lactate Dehydrogenase 211 (85-227) U/L Creatine Kinase (39-308) U/L C-Reactive Protein < 0.2 (0.0-0.9) mg/dL Total Protein (6.4-8.2) g/dL Albumin (3.4-5.0) g/dL Globulin Albumin/Globulin Ratio Amylase (25-115) U/L Lipase (73-393) U/L Urine Color (YELLOW) Urine Appearance (CLEAR) Urine pH (5.0-9.0) Ur Specific [place] (1.005-1.030) Urine Protein (NEGATIVE) Urine Glucose (UA) (NEGATIVE) Urine Ketones (NEGATIVE) Urine Occult Blood (NEGATIVE) Urine Nitrite (NEGATIVE) Urine Bilirubin (NEGATIVE) Urine Urobilinogen (0.2-1.0) mg/dL Ur Leukocyte Esterase (NEGATIVE) Urine RBC /HPF Urine WBC (0-5/HPF) /HPF Ur Epithelial Cells (NOT SEEN) /HPF Amorphous Sediment (NOT SEEN) /HPF Urine Bacteria (0-FEW/HPF) /HPF Urine Mucus (NOT SEEN) /LPF Urine Other Urine Opiates Screen (NEGATIVE) Ur Oxycodone Screen (NEGATIVE) Urine Methadone Screen (NEGATIVE) Ur Barbiturates Screen (NEGATIVE) U Tricyclic Antidepress (NEGATIVE) Ur Phencyclidine Scrn (NEGATIVE) Ur Amphetamine Screen (NEGATIVE) U Methamphetamines Scrn (NEGATIVE) Urine MDMA Screen (NEGATIVE) U Benzodiazepines Scrn (NEGATIVE) Urine Cocaine Screen (NEGATIVE) U Marijuana (THC) Screen (NEGATIVE) Ethyl Alcohol (0) mg/dL 08/11/19 08/11/19 08/11/19 Range/Units 17:30 17:44 17:44 WBC (5.0-10.0) 10^3/uL RBC (4.6-6.2) 10^6/uL Hgb (14.0-18.0) g/dL Hct (40.0-54.0) % MCV (80-100) fL MCH (27.0-34.0) pg MCHC (33.0-35.0) g/dL Plt Count (150-450) 10^3/uL Neut % (Auto) (42.2-75.2) % Lymph % (Auto) (20.5-50.1) % [place] % (Auto) (2-8) % Eos % (Auto) (1.0-3.0) % Baso % (Auto) (0.0-1.0) % Sodium (136-145) mmol/L Potassium (3.5-5.1) mmol/L Chloride (98-107) mmol/L Carbon Dioxide (21-32) mmol/L Anion Gap (7-13) mEq/L BUN (7-18) mg/dL Creatinine (0.70-1.30) mg/dL Est Cr Clr Drug Dosing mL/min Estimated GFR (MDRD) BUN/Creatinine Ratio (No establ ref range) Glucose (74-99) mg/dL POC Glucose (70-105) mg/dl Lactic Acid 1.4 (0.4-2.0) mmol/L Calcium (8.5-10.1) mg/dL Ferritin (26-388) mg/mL Total Bilirubin (0.2-1.0) mg/dL AST (15-37) U/L ALT (16-63) U/L Alkaline Phosphatase (46-116) U/L Lactate Dehydrogenase (85-227) U/L Creatine Kinase (39-308) U/L C-Reactive Protein (0.0-0.9) mg/dL Total Protein (6.4-8.2) g/dL Albumin (3.4-5.0) g/dL Globulin Albumin/Globulin Ratio Amylase (25-115) U/L Lipase (73-393) U/L Urine Color Yellow (YELLOW) Urine Appearance Slightly cloudy (CLEAR) Urine pH 7.0 (5.0-9.0) Ur Specific [place] >= 1.030 (1.005-1.030) Urine Protein >=300 H (NEGATIVE) Urine Glucose (UA) Negative (NEGATIVE) Urine Ketones 15 H (NEGATIVE) Urine Occult Blood Moderate H (NEGATIVE) Urine Nitrite Negative (NEGATIVE) Urine Bilirubin Negative (NEGATIVE) Urine Urobilinogen 0.2 (0.2-1.0) mg/dL Ur Leukocyte Esterase Negative (NEGATIVE) Urine RBC 10-20 H /HPF Urine WBC 0-5 (0-5/HPF) /HPF Ur Epithelial Cells Rare (NOT SEEN) /HPF Amorphous Sediment Rare (NOT SEEN) /HPF Urine Bacteria Rare (0-FEW/HPF) /HPF Urine Mucus Few H (NOT SEEN) /LPF Urine Other See note Urine Opiates Screen Negative (NEGATIVE) Ur Oxycodone Screen Negative (NEGATIVE) Urine Methadone Screen Negative (NEGATIVE) Ur Barbiturates Screen Negative (NEGATIVE) U Tricyclic Antidepress Negative (NEGATIVE) Ur Phencyclidine Scrn Negative (NEGATIVE) Ur Amphetamine Screen Negative (NEGATIVE) U Methamphetamines Scrn Negative (NEGATIVE) Urine MDMA Screen Negative (NEGATIVE) U Benzodiazepines Scrn Positive H (NEGATIVE) Urine Cocaine Screen Negative (NEGATIVE) U Marijuana (THC) Screen Positive H (NEGATIVE) Ethyl Alcohol (0) mg/dL 08/12/19 08/12/19 Range/Units 06:36 06:36 WBC 6.3 (5.0-10.0) 10^3/uL RBC 4.01 L (4.6-6.2) 10^6/uL Hgb 12.5 L D (14.0-18.0) g/dL Hct 36.6 L (40.0-54.0) % MCV 91.3 (80-100) fL MCH 31.2 (27.0-34.0) pg MCHC 34.2 (33.0-35.0) g/dL Plt Count 127 L (150-450) 10^3/uL Neut % (Auto) (42.2-75.2) % Lymph % (Auto) (20.5-50.1) % [place] % (Auto) (2-8) % Eos % (Auto) (1.0-3.0) % Baso % (Auto) (0.0-1.0) % Sodium 142 (136-145) mmol/L Potassium 3.8 (3.5-5.1) mmol/L Chloride 107 (98-107) mmol/L Carbon Dioxide 20 L (21-32) mmol/L Anion Gap 18.8 H (7-13) mEq/L BUN 12 (7-18) mg/dL Creatinine 0.95 (0.70-1.30) mg/dL Est Cr Clr Drug Dosing 77.59 mL/min Estimated GFR (MDRD) > 60 BUN/Creatinine Ratio (No establ ref range) Glucose 98 (74-99) mg/dL POC Glucose (70-105) mg/dl Lactic Acid (0.4-2.0) mmol/L Calcium 7.8 L (8.5-10.1) mg/dL Ferritin (26-388) mg/mL Total Bilirubin (0.2-1.0) mg/dL AST (15-37) U/L ALT (16-63) U/L Alkaline Phosphatase (46-116) U/L Lactate Dehydrogenase (85-227) U/L Creatine Kinase (39-308) U/L C-Reactive Protein (0.0-0.9) mg/dL Total Protein (6.4-8.2) g/dL Albumin (3.4-5.0) g/dL Globulin Albumin/Globulin Ratio Amylase (25-115) U/L Lipase (73-393) U/L Urine Color (YELLOW) Urine Appearance (CLEAR) Urine pH (5.0-9.0) Ur Specific [place] (1.005-1.030) Urine Protein (NEGATIVE) Urine Glucose (UA) (NEGATIVE) Urine Ketones (NEGATIVE) Urine Occult Blood (NEGATIVE) Urine Nitrite (NEGATIVE) Urine Bilirubin (NEGATIVE) Urine Urobilinogen (0.2-1.0) mg/dL Ur Leukocyte Esterase (NEGATIVE) Urine RBC /HPF Urine WBC (0-5/HPF) /HPF Ur Epithelial Cells (NOT SEEN) /HPF Amorphous Sediment (NOT SEEN) /HPF Urine Bacteria (0-FEW/HPF) /HPF Urine Mucus (NOT SEEN) /LPF Urine Other Urine Opiates Screen (NEGATIVE) Ur Oxycodone Screen (NEGATIVE) Urine Methadone Screen (NEGATIVE) Ur Barbiturates Screen (NEGATIVE) U Tricyclic Antidepress (NEGATIVE) Ur Phencyclidine Scrn (NEGATIVE) Ur Amphetamine Screen (NEGATIVE) U Methamphetamines Scrn (NEGATIVE) Urine MDMA Screen (NEGATIVE) U Benzodiazepines Scrn (NEGATIVE) Urine Cocaine Screen (NEGATIVE) U Marijuana (THC) Screen (NEGATIVE) Ethyl Alcohol (0) mg/dL SHARDA Results - Last 24 hrs: Microbiology 08/12/19 06:08 Gram Stain - Final Sputum - Expectorated 08/11/19 15:17 Influenza Type A Antigen Screen - Final Nasal, Unspecified NEGATIVE INFLUENZA A VIRUS AG REFERENCE RANGE: NEGATIVE Influenza Type B Antigen Screen - Final NEGATIVE INFLUENZA B VIRUS AG REFERENCE RANGE: NEGATIVE Med Orders - Current: Current Medications Acetaminophen (Tylenol) 650 mg PO Q4H PRN PRN Reason: Pain (Mild 1-3)/fever Last Admin: 08/11/19 18:27 Dose: 650 mg Hydrocodone Bitart/Acetaminophen ([place] 325-5 Mg) 1 tab PO ASDIRECTED PRN PRN Reason: Pain Last Admin: 08/11/19 18:28 Dose: 1 tab Heparin Sodium (Porcine) (Heparin Sodium) 5,000 units SUBCUT Q8HR REPLACED BY [facility] Last Admin: 08/12/19 05:53 Dose: 5,000 units Hydrocortisone Sodium Succinate (Solu-Cortef) 100 mg IVPUSH Q8HR REPLACED BY [facility] Last Admin: 08/12/19 05:56 Dose: 100 mg Sodium Chloride (Normal Saline) 1,000 mls @ 125 mls/hr IV ASDIRECTED REPLACED BY [facility] Last Admin: 08/12/19 04:55 Dose: 125 mls/hr Ceftriaxone Sodium 2 gm/ (Sodium Chloride) 100 mls @ 200 mls/hr IV Q12HR REPLACED BY [facility] Last Admin: 08/12/19 08:02 Dose: 200 mls/hr Vancomycin HCl 750 mg/ Sodium (Chloride) 250 mls @ 166.667 mls/hr IV Q12H REPLACED BY [facility] Last Admin: 08/12/19 05:57 Dose: 166.667 mls/hr Lorazepam (Ativan) 2 mg IVPUSH ONETIME PRN PRN Reason: seizure Ondansetron HCl (Zofran) 4 mg IVPUSH Q6H PRN PRN Reason: Nausea/Vomiting Sodium Chloride (Saline Flush) 10 ml FLUSH ASDIRECTED PRN PRN Reason: Keep Vein Open Last Admin: 08/11/19 16:13 Dose: 10 ml Vancomycin HCl (Pharmacy To Dose - Vancomycin) 1 dose .XX ASDIRECTED KERI Discontinued Medications Azithromycin 500 mg/ Sodium (Chloride) 250 mls @ 250 mls/hr IV ONETIME ONE Stop: 08/11/19 18:09 Last Admin: 08/11/19 18:30 Dose: 250 mls/hr Ceftriaxone Sodium 1 gm/ (Sodium Chloride) 50 mls @ 100 mls/hr IV ONETIME ONE Stop: 08/11/19 17:39 Last Admin: 08/11/19 17:29 Dose: 100 mls/hr Potassium Chloride 20 meq/ (Premix) 100 mls @ 50 mls/hr IV ONETIME ONE Stop: 08/11/19 20:07 Last Admin: 08/11/19 22:13 Dose: 50 mls/hr Vancomycin HCl 1,500 mg/ (Sodium Chloride) 500 mls @ 333.333 mls/hr IV ONETIME ONE Stop: 08/11/19 19:59 Last Admin: 08/11/19 19:43 Dose: 250 mls/hr Lorazepam (Ativan) 2 mg IM ONETIME ONE Stop: 08/11/19 14:52 Last Admin: 08/11/19 14:33 Dose: 2 mg Ondansetron HCl (Zofran) 4 mg IV ONETIME ONE Stop: 08/11/19 15:22 Last Admin: 08/11/19 16:13 Dose: 4 mg Vancomycin HCl (Vancomycin) Confirm Administered Dose 750 mg .ROUTE .STK-MED ONE Stop: 08/12/19 05:26 Last Admin: 08/12/19 05:52 Dose: Not Given - Exam Quality Assessment: Reports: Supplemental Oxygen General: Reports: Alert, Oriented Neck: Reports: Supple Lungs: Reports: Normal Respiratory Effort, Decreased Breath Sounds Cardiovascular: Reports: Regular Rate, Regular Rhythm GI/Abdominal Exam: Normal Bowel Sounds, Soft, Non-Tender, No Organomegaly, No Distention, No Abnormal Bruit, No Mass, Pelvis Stable Extremities: Normal Inspection, Normal Range of Motion, Non-Tender, No Pedal Edema, Normal Capillary Refill Skin: Reports: Warm, Dry Psy/Mental Status: Reports: Alert, Normal Affect, Normal Mood
== END 2019-08-12 10:58 | DRG 871 ==
LOC: DL.ED 14:33 → UNDOADMOB 17:43 → DL.MS 17:43 → OBSVTOIN 18:08 → DL.MS 18:08
PROVIDERS: ADMIT Hospitalist; ATTEND Hospitalist
PROC: 8E0ZXY6 Isolation (ICD-10-PCS; principal; 2019-08-12)
DX: A41.9 Sepsis, unspecified organism (principal); R56.9 Unspecified convulsions; J18.9 Pneumonia, unspecified organism; G93.49 Other encephalopathy; G93.40 Encephalopathy, unspecified; M32.9 Systemic lupus erythematosus, unspecified; K52.9 Noninfective gastroenteritis and colitis, unspecified; E87.6 Hypokalemia; Z88.0 Allergy status to penicillin; Z86.711 Personal history of pulmonary embolism; Z88.1 Allergy status to other antibiotic agents; Z79.01 Long term (current) use of anticoagulants; Z79.890 Hormone replacement therapy; Z79.52 Long term (current) use of systemic steroids; Z79.899 Other long term (current) drug therapy; H54.7 Unspecified visual loss; K21.9 Gastro-esophageal reflux disease without esophagitis; D84.9 Immunodeficiency, unspecified; F17.200 Nicotine dependence, unspecified, uncomplicated; E87.2 Acidosis
CPT/HCPCS: 36415; 70450; 71045; 80053; 80305; 80307; 81001; 82150; 82550; 82728; 82962; 83605 ×2; 83615; 83690; 85025; 86140; 87040 ×2; 87635; 87804 ×2; 96365; 96372; 96375; 99285; J0696; J2060; J2405; J7050; 80048; 85027; 87070; 87205; A9270-GY; J0456; J1644; J1720; J3370; J3480; J7030; J7040; U0002

== ENCOUNTER 2019-09-10 12:13 | Emergency (ER) | payer MEDICAID ==
[2019-09-10] MEDS ORDERED: Sodium Chloride 0.9% 10 ML Syringe FLUSH PRN (12:15)
[2019-09-10] MEDS ORDERED: levETIRAcetam 1,500 MG in Sodium Chloride 0.9% 100 ML IV ONE (12:15)
[2019-09-10] MEDS ORDERED: Sodium Chloride 0.9% 1,000 ML IV ONE (12:15)
[2019-09-10 12:27] VITALS: PULSE 133
[2019-09-10 12:36] VITALS: BP 163/91
[2019-09-10] MEDS ORDERED: Ondansetron 4 MG/2 ML SDV IV ONE (12:37)
[2019-09-10 13:08] LABS: ANION GAP 31.3 mEq/L (7-13); CHLORIDE,CL 102 mmol/L (98-107); SODIUM,NA 141 mmol/L (136-145)
[2019-09-10] MEDS ORDERED: diphenhydrAMINE 50 MG/ML SDV IVPUSH ONE (13:50)
[2019-09-10] MEDS ORDERED: Haloperidol Lactate 5 MG/ML SDV IVPUSH ONE (13:50)
--- NOTE | 2019-09-10 14:08 | EDM.PDOC ---
Scribed by Theresa Guadarrama 09/10/19 1233 for David Figueroa MD ED HPI GENERAL MEDICAL PROBLEM - General Chief Complaint: Neurological Problem Stated Complaint: ambulance Time Seen by Provider: 09/10/19 12:13 Source of Information: Reports: Patient, EMS, EMS Notes Reviewed, RN, RN Notes Reviewed History Limitations: Reports: No Limitations - History of Present Illness INITIAL COMMENTS - FREE TEXT/NARRATIVE: Pt arrives from home by [facility] with EMS reporting pt's called 911 due to pt having multiple seizures today. First seizure today reportedly occurred around 0530HRS, but pt refused to come to the ER. He apparently had another seizure around 0900HRS, and again just before noon. He arrived to the ER postictal and combative. Pt was seen here on 08/11/19 with a new onset seizure and pneumonia. Pt was admitted to observation until a transfer team was available then transferred to [facility] in , and apparently discharged home after neurology consultation and had a normal EEG and MRI brain. Pt was discharged home from [facility] on 08/14/19 with Dx of pneumonia. He had no further seizures until today. Pt is unable to provide any history due to postictal confusion. Pt reported via phone that she thinks the pt may have had a fever this morning, but she doesn't have a thermometer. Onset: Unknown/Unsure Duration: Recurring Location: Reports: Generalized Severity: Severe Improves with: Reports: None Worsens with: Reports: None - Related Data Allergies Allergy/AdvReac Type Severity Reaction Status Date / Time amoxicillin Allergy Rash Verified 08/11/19 14:54 Home Meds: Home Meds predniSONE [Prednisone] 10 mg PO DAILY 11/12/15 [History] Omeprazole 20 mg PO DAILY 01/22/16 [History] Apixaban [Eliquis] 10 mg PO BID 01/23/18 [History] Past Medical History HEENT History: Reports: Impaired Vision Other HEENT History: CORRECTIVE LENS Cardiovascular History: Reports: Blood Clots/VTE/DVT Respiratory History: Reports: PE Gastrointestinal History: Reports: GERD Genitourinary History: Reports: None Musculoskeletal History: Reports: SLE Neurological History: Reports: Seizure Psychiatric History: Reports: None Hematologic History: Reports: None Immunologic History: Reports: Immunosuppression (Chronic prednisone tx.), SLE Oncologic (Cancer) History: Reports: None Dermatologic History: Reports: Cellulitis - Infectious Disease History Infectious Disease History: Reports: Chicken Pox, Measles, Mumps - Past Surgical History HEENT Surgical History: Reports: Oral Surgery Respiratory Surgical History: Reports: None GI Surgical History: Reports: Colonoscopy, EGD Musculoskeletal Surgical History: Reports: None Dermatological Surgical History: Reports: None Social & Family History - Family History Family Medical History: Noncontributory - Caffeine Use Caffeine Use: Reports: Coffee, Soda, Tea Other Caffeine Use: OCCASIONALLY - Living Situation & Occupation Living situation: Reports: , with Spouse ED ROS GENERAL - Review of Systems Review Of Systems: Unable To Obtain Reason Not Obtained: Postictal confusion, combativeness. - Physical Exam Exam: See Below Exam Limited By: Altered Mental Status (Postictal confusion, combative.) General Appearance: Alert, No Apparent Distress Eye Exam: Bilateral Eye: EOMI, PERRL Ears: Normal External Exam, Hearing Grossly Normal Nose: Normal Inspection, Normal Mucosa, No Blood Throat/Mouth: Normal Inspection, Normal Lips, Normal Oropharynx, Normal Voice, No Airway Compromise. No: Evidence of Tongue Biting Head Exam: Atraumatic, Normocephalic Neck: Normal Inspection, Full Range of Motion Respiratory/Chest: No Respiratory Distress, Lungs Clear, Normal Breath Sounds, No Accessory Muscle Use, Chest Non-Tender Cardiovascular: Normal Peripheral Pulses, Regular Rate, Rhythm, No Edema, Tachycardia GI/Abdominal: Normal Bowel Sounds, Soft, Non-Tender, No Distention (Male) Exam: Deferred, Other (Incontinent of urine.) Rectal (Males) Exam: Deferred Neuro Exam (Abbreviated): Confused (Postictal confusion and combative on arrival and for approx. 30 minutes post-arrival. Moves all extremities, speaks clearly, no obvious motor or sensory deficits.) Course - Vital Signs Last Recorded V/S: Last Vital Signs Temp 98.2 F 09/10/19 12:23 Pulse 133 H 09/10/19 12:23 Resp 28 H 09/10/19 12:23 BP 163/91 H 09/10/19 12:23 Pulse Ox 95 09/10/19 12:23 - Orders/Labs/Meds Orders: Active Orders 24 hr Category Date Time Status Blood Glucose Check, Bedside [RC] ONETIME Care 09/10/19 12:15 Active Initiate/Renew Violent-Self Destructive Restraints >/= Care 09/10/19 12:15 Ordered 20yo Q4H Nrsg Assess: Viol-S.Dest Rest [RC] Q1H Care 09/10/19 12:13 Active Peripheral IV Care [RC] . DIRECTED Care 09/10/19 12:15 Active AMMONIA VENOUS [CHEM] Stat Lab 09/10/19 13:50 Ordered Sodium Chloride 0.9% [Saline Flush] Med 09/10/19 12:15 Active 10 ml FLUSH ASDIRECTED PRN Peripheral IV Insertion Adult [OM.PC] Stat Oth 09/10/19 12:14 Ordered Medication Orders Sodium Chloride (Saline Flush) 10 ml FLUSH ASDIRECTED PRN PRN Reason: Keep Vein Open Last Admin: 09/10/19 12:36 Dose: 10 ml Labs: Laboratory Tests 09/10/19 09/10/19 09/10/19 Range/Units 12:39 12:39 12:57 WBC 12.0 H (5.0-10.0) 10^3/uL RBC 4.49 L (4.6-6.2) 10^6/uL Hgb 14.0 D (14.0-18.0) g/dL Hct 41.9 (40.0-54.0) % MCV 93.3 (80-100) fL MCH 31.2 (27.0-34.0) pg MCHC 33.4 (33.0-35.0) g/dL Plt Count 154 (150-450) 10^3/uL Neut % (Auto) 72.1 (42.2-75.2) % Lymph % (Auto) 17.3 L (20.5-50.1) % [place] % (Auto) 9.1 H (2-8) % Eos % (Auto) 1.3 (1.0-3.0) % Baso % (Auto) 0.2 (0.0-1.0) % Sodium 141 (136-145) mmol/L Potassium 3.3 L (3.5-5.1) mmol/L Chloride 102 (98-107) mmol/L Carbon Dioxide 11 L (21-32) mmol/L Anion Gap 31.3 H (7-13) mEq/L BUN 13 (7-18) mg/dL Creatinine 1.38 H (0.70-1.30) mg/dL Est Cr Clr Drug Dosing TNP Estimated GFR (MDRD) 52 BUN/Creatinine Ratio 9.4 (No establ ref range) Glucose 129 H (74-99) mg/dL POC Glucose 117 H (70-105) mg/dl Calcium 8.6 (8.5-10.1) mg/dL Total Bilirubin 0.2 (0.2-1.0) mg/dL AST 22 (15-37) U/L ALT 20 (16-63) U/L Alkaline Phosphatase 75 (46-116) U/L Lactate Dehydrogenase 193 (85-227) U/L Creatine Kinase 235 (39-308) U/L Total Protein 8.7 H (6.4-8.2) g/dL Albumin 3.9 (3.4-5.0) g/dL Globulin 4.8 Albumin/Globulin Ratio 0.8 Urine Color (YELLOW) Urine Appearance (CLEAR) Urine pH (5.0-9.0) Ur Specific [place] (1.005-1.030) Urine Protein (NEGATIVE) Urine Glucose (UA) (NEGATIVE) Urine Ketones (NEGATIVE) Urine Occult Blood (NEGATIVE) Urine Nitrite (NEGATIVE) Urine Bilirubin (NEGATIVE) Urine Urobilinogen (0.2-1.0) mg/dL Ur Leukocyte Esterase (NEGATIVE) Urine RBC /HPF Urine WBC (0-5/HPF) /HPF Ur Epithelial Cells (NOT SEEN) /HPF Urine Bacteria (0-FEW/HPF) /HPF Urine Opiates Screen (NEGATIVE) Ur Oxycodone Screen (NEGATIVE) Urine Methadone Screen (NEGATIVE) Ur Barbiturates Screen (NEGATIVE) U Tricyclic Antidepress (NEGATIVE) Ur Phencyclidine Scrn (NEGATIVE) Ur Amphetamine Screen (NEGATIVE) U Methamphetamines Scrn (NEGATIVE) Urine MDMA Screen (NEGATIVE) U Benzodiazepines Scrn (NEGATIVE) Urine Cocaine Screen (NEGATIVE) U Marijuana (THC) Screen (NEGATIVE) Ethyl Alcohol < 3 (0) mg/dL 09/10/19 09/10/19 Range/Units 13:24 13:24 WBC (5.0-10.0) 10^3/uL RBC (4.6-6.2) 10^6/uL Hgb (14.0-18.0) g/dL Hct (40.0-54.0) % MCV (80-100) fL MCH (27.0-34.0) pg MCHC (33.0-35.0) g/dL Plt Count (150-450) 10^3/uL Neut % (Auto) (42.2-75.2) % Lymph % (Auto) (20.5-50.1) % [place] % (Auto) (2-8) % Eos % (Auto) (1.0-3.0) % Baso % (Auto) (0.0-1.0) % Sodium (136-145) mmol/L Potassium (3.5-5.1) mmol/L Chloride (98-107) mmol/L Carbon Dioxide (21-32) mmol/L Anion Gap (7-13) mEq/L BUN (7-18) mg/dL Creatinine (0.70-1.30) mg/dL Est Cr Clr Drug Dosing Estimated GFR (MDRD) BUN/Creatinine Ratio (No establ ref range) Glucose (74-99) mg/dL POC Glucose (70-105) mg/dl Calcium (8.5-10.1) mg/dL Total Bilirubin (0.2-1.0) mg/dL AST (15-37) U/L ALT (16-63) U/L Alkaline Phosphatase (46-116) U/L Lactate Dehydrogenase (85-227) U/L Creatine Kinase (39-308) U/L Total Protein (6.4-8.2) g/dL Albumin (3.4-5.0) g/dL Globulin Albumin/Globulin Ratio Urine Color Yellow (YELLOW) Urine Appearance Clear (CLEAR) Urine pH 6.0 (5.0-9.0) Ur Specific [place] >= 1.030 (1.005-1.030) Urine Protein 100 H (NEGATIVE) Urine Glucose (UA) Negative (NEGATIVE) Urine Ketones Negative (NEGATIVE) Urine Occult Blood Moderate H (NEGATIVE) Urine Nitrite Negative (NEGATIVE) Urine Bilirubin Negative (NEGATIVE) Urine Urobilinogen 0.2 (0.2-1.0) mg/dL Ur Leukocyte Esterase Negative (NEGATIVE) Urine RBC 5-10 H /HPF Urine WBC 0-5 (0-5/HPF) /HPF Ur Epithelial Cells Rare (NOT SEEN) /HPF Urine Bacteria Not seen (0-FEW/HPF) /HPF Urine Opiates Screen Negative (NEGATIVE) Ur Oxycodone Screen Negative (NEGATIVE) Urine Methadone Screen Negative (NEGATIVE) Ur Barbiturates Screen Negative (NEGATIVE) U Tricyclic Antidepress Negative (NEGATIVE) Ur Phencyclidine Scrn Negative (NEGATIVE) Ur Amphetamine Screen Negative (NEGATIVE) U Methamphetamines Scrn Negative (NEGATIVE) Urine MDMA Screen Negative (NEGATIVE) U Benzodiazepines Scrn Negative (NEGATIVE) Urine Cocaine Screen Negative (NEGATIVE) U Marijuana (THC) Screen Positive H (NEGATIVE) Ethyl Alcohol (0) mg/dL Meds: Medications Generic Name Dose Route Start Last Admin Trade Name Freq PRN Reason Stop Dose Admin Sodium Chloride 10 ml 09/10/19 12:15 09/10/19 12:36 Saline Flush FLUSH 10 ml ASDIRECTED PRN Administration Keep Vein Open Discontinued Medications Generic Name Dose Route Start Last Admin Trade Name Freq PRN Reason Stop Dose Admin Diazepam 10 mg 09/10/19 12:12 09/10/19 12:36 Valium IM 09/10/19 12:13 10 mg ONETIME ONE Administration Diazepam 5 mg 09/10/19 12:47 09/10/19 12:50 Valium IVPUSH 09/10/19 12:48 5 mg ONETIME ONE Administration Diazepam 5 mg 09/10/19 13:01 09/10/19 13:02 Valium IVPUSH 09/10/19 13:02 5 mg ONETIME ONE Administration Diphenhydramine HCl 50 mg 09/10/19 13:50 09/10/19 13:54 Benadryl IVPUSH 09/10/19 13:51 50 mg ONETIME ONE Administration Haloperidol Lactate 5 mg 09/10/19 13:50 09/10/19 13:53 Haldol IVPUSH 09/10/19 13:51 5 mg ONETIME ONE Administration Levetiracetam 1,500 mg/ Sodium 115 mls @ 400 mls/hr 09/10/19 12:15 09/10/19 12:43 Chloride IV 09/10/19 12:29 400 mls/hr ONETIME ONE Administration Sodium Chloride 1,000 mls @ 999 mls/hr 09/10/19 12:15 09/10/19 12:44 Normal Saline IV 09/10/19 13:15 999 mls/hr .BOLUS ONE Administration Ondansetron HCl 4 mg 09/10/19 12:37 09/10/19 12:50 Zofran IV 09/10/19 12:38 4 mg ONETIME ONE Administration - Re-Assessments/Exams Free Text/Narrative Re-Assessment/Exam: 09/10/19 14:00 Unclear whether pt is experiencing recurrent seizures or pseudoseizure phenomenon. Pt has experienced a prolonged postictal phase of confusion and combativeness of >1 hour despite Diazepam total dose of 20mg. Pt denies any alcohol use history in the pt, and denies any history of head injury. Plan to transfer pt to [facility] in to a higher level of care, with Dr. Silverman accepting the pt. Departure - Departure Time of Disposition: 14:03 Disposition: DC/Tfer to Acute Hospital 02 Condition: Undetermined Clinical Impression: Recurrent seizures - Discharge Information *PRESCRIPTION DRUG MONITORING PROGRAM REVIEWED*: Not Applicable *COPY OF PRESCRIPTION DRUG MONITORING REPORT IN PATIENT MANNY: Not Applicable Forms: ED Department Discharge, Interfacility Transfer EMTALA Sepsis Event Note - Focused Exam Vital Signs: Vital Signs Temp Pulse Resp BP Pulse Ox 09/10/19 12:23 98.2 F 133 H 28 H 163/91 H 95 Date Exam was Performed: 09/10/19 Time Exam was Performed: 14:03 - My Orders Last 24 Hours: My Active Orders 09/10/19 12:13 Nrsg Assess: Viol-S.Dest Rest [RC] Q1H 09/10/19 12:14 Peripheral IV Insertion Adult [OM.PC] Stat 09/10/19 12:15 Blood Glucose Check, Bedside [RC] ONETIME Initiate/Renew Violent-Self Destructive Restraints >/=18yo Q4H Peripheral IV Care [RC] . DIRECTED Sodium Chloride 0.9% [Saline Flush] 10 ml FLUSH ASDIRECTED PRN 09/10/19 13:50 AMMONIA VENOUS [CHEM] Stat - Assessment/Plan Last 24 Hours: My Active Orders 09/10/19 12:13 Nrsg Assess: Viol-S.Dest Rest [RC] Q1H 09/10/19 12:14 Peripheral IV Insertion Adult [OM.PC] Stat 09/10/19 12:15 Blood Glucose Check, Bedside [RC] ONETIME Initiate/Renew Violent-Self Destructive Restraints >/=18yo Q4H Peripheral IV Care [RC] . DIRECTED Sodium Chloride 0.9% [Saline Flush] 10 ml FLUSH ASDIRECTED PRN 09/10/19 13:50 AMMONIA VENOUS [CHEM] Stat I have read and agree with the documentation that has been completed regarding this visit. By signing this record, I attest that the documentation was completed in my physical presence and is an accurate record of the encounter.
== END 2019-09-10 14:45 ==
LOC: DL.ED 12:13
DX: G40.909 Epilepsy, unspecified, not intractable, without status epilepticus (principal); Z86.718 Personal history of other venous thrombosis and embolism; Z79.01 Long term (current) use of anticoagulants; Z86.711 Personal history of pulmonary embolism; M32.9 Systemic lupus erythematosus, unspecified; Z79.899 Other long term (current) drug therapy
CPT/HCPCS: 36415; 80053; 80305-QW; 80307; 81001; 82140; 82550; 82962; 83615; 85025; 96361; 96365; 96372; 96375; 99285-25; J1200; J1630; J1953; J2405; J3360; J7030; J7050

== ENCOUNTER 2020-03-21 12:27 | Emergency (ER) | payer MEDICAID ==
[2020-03-21 12:24] VITALS: BP 151/79; PULSE 79
[~2020-03-21 12:27] MED LIST: LORazepam 2 MG/ML SDV ONE; levETIRAcetam in NaCl (iso-os) 1,000 MG in Premix Bag 1 BAG IV ONE
[2020-03-21 12:52] LABS: ANION GAP 19.6 mEq/L (7-13); CHLORIDE,CL 105 mmol/L (98-107); SODIUM,NA 142 mmol/L (136-145)
--- NOTE | 2020-03-21 13:46 | EDM.PDOC ---
ED HPI GENERAL MEDICAL PROBLEM - General Chief Complaint: Neurological Problem Stated Complaint: AMBULANCE Time Seen by Provider: 03/21/20 12:27 Source of Information: Reports: Patient, EMS, EMS Notes Reviewed, Family ( - Nati), RN, RN Notes Reviewed History Limitations: Reports: No Limitations - History of Present Illness INITIAL COMMENTS - FREE TEXT/NARRATIVE: Patient presents to the ED via EMS via request of family for witnessed seizure. The patient does have a history of seizure for which he takes Keppra 750mg; family believes he has not been taking his medications. The patient's daughter witness a three minute long seizure immediately prior to calling EMS. The patient's feels he may have been experiencing seizures for the past 48 hours as he has been confused and lethargic; she has not witnessed any of his activity in the past 48 hours as she has been admitted in the hospital, but she has been communicating with him via telephone. Per EMS he was given 5mg Diazepam and 5mg Haldol enroute due to combativeness following a three minute post-ictal state. The patient arrived to this facility yelling and combative. No additional medications were administered as he was re-directable. He states he does not remember any seizure activity. He is unable to state if he has been taking his medications. - Related Data Allergies Allergy/AdvReac Type Severity Reaction Status Date / Time amoxicillin Allergy Rash Verified 03/21/20 12:24 Home Meds: Home Meds predniSONE [Prednisone] 10 mg PO DAILY 11/12/15 [History] Omeprazole 20 mg PO DAILY 01/22/16 [History] Apixaban [Eliquis] 10 mg PO BID 01/23/18 [History] Past Medical History HEENT History: Reports: Impaired Vision Other HEENT History: CORRECTIVE LENS Cardiovascular History: Reports: Blood Clots/VTE/DVT Respiratory History: Reports: PE Gastrointestinal History: Reports: GERD Genitourinary History: Reports: None Musculoskeletal History: Reports: SLE Neurological History: Reports: Seizure Psychiatric History: Reports: None Hematologic History: Reports: None Immunologic History: Reports: Immunosuppression (Chronic prednisone tx.), SLE Oncologic (Cancer) History: Reports: None Dermatologic History: Reports: Cellulitis - Infectious Disease History Infectious Disease History: Reports: Chicken Pox, Measles, Mumps - Past Surgical History HEENT Surgical History: Reports: Oral Surgery Respiratory Surgical History: Reports: None GI Surgical History: Reports: Colonoscopy, EGD Musculoskeletal Surgical History: Reports: None Dermatological Surgical History: Reports: None Social & Family History - Family History Family Medical History: No Pertinent Family History - Tobacco Use Tobacco Use Status *Q: Never Tobacco User Second Hand Smoke Exposure: No - Caffeine Use Caffeine Use: Reports: Coffee, Soda Other Caffeine Use: OCCASIONALLY - Recreational Drug Use Recreational Drug Use: No - Living Situation & Occupation Living situation: Reports: , with Spouse ED ROS GENERAL - Review of Systems Review Of Systems: Comprehensive ROS is negative, except as noted in HPI. - Physical Exam Exam: See Below Exam Limited By: No Limitations General Appearance: Alert, No Apparent Distress Eye Exam: Bilateral Eye: EOMI, Normal Inspection, PERRL Ears: Normal External Exam, Normal Canal, Hearing Grossly Normal Nose: Normal Inspection, Normal Mucosa. No: Nasal Tenderness, Nasal Swelling, Nasal Drainage Throat/Mouth: Normal Inspection, Normal Voice, No Airway Compromise Head Exam: Atraumatic, Normocephalic Neck: Normal Inspection, Supple, Non-Tender, Full Range of Motion. No: Lymphadenopathy (L), Lymphadenopathy (R) Respiratory/Chest: No Accessory Muscle Use, Chest Non-Tender, Decreased Breath Sounds, Wheezing (Faint inspiratory to right upper lobe) Cardiovascular: Normal Peripheral Pulses, Regular Rate, Rhythm, No Edema, No Gallop, No JVD, No Murmur, No Rub GI/Abdominal: Normal Bowel Sounds, Soft, Non-Tender, No Distention, No Mass, Pelvis Stable Neuro Exam (Abbreviated): Alert, Oriented, CN II-XII Intact, Normal Cognition, Normal Gait, No Motor/Sensory Deficits Back Exam: Normal Inspection, Full Range of Motion Extremities: Normal Inspection, Normal Range of Motion, Non-Tender, No Pedal Edema, Normal Capillary Refill Skin Exam: Warm, Dry, Intact, Normal Color, No Rash. No: Ecchymosis, Erythema, Mottled, Pallor, Petechiae Course - Vital Signs Last Recorded V/S: Last Vital Signs Temp 98.8 F 03/21/20 12:06 Pulse 79 03/21/20 12:06 Resp 16 03/21/20 12:06 BP 151/79 H 03/21/20 12:06 Pulse Ox 99 03/21/20 12:06 - Orders/Labs/Meds Orders: Active Orders 24 hr Category Date Time Status EKG Documentation Completion [RC] STAT Care 03/21/20 14:36 Active Labs: Laboratory Tests 03/21/20 03/21/20 03/21/20 Range/Units 12:16 12:17 12:17 WBC 7.1 (5.0-10.0) 10^3/uL RBC 4.66 (4.6-6.2) 10^6/uL Hgb 14.6 (14.0-18.0) g/dL Hct 42.5 (40.0-54.0) % MCV 91.2 (80-100) fL MCH 31.3 (27.0-34.0) pg MCHC 34.4 (33.0-35.0) g/dL Plt Count 138 L (150-450) 10^3/uL Neut % (Auto) 72.0 (42.2-75.2) % Lymph % (Auto) 18.1 L (20.5-50.1) % [place] % (Auto) 7.2 (2-8) % Eos % (Auto) 2.4 (1.0-3.0) % Baso % (Auto) 0.3 (0.0-1.0) % Sodium 142 (136-145) mmol/L Potassium 3.6 (3.5-5.1) mmol/L Chloride 105 (98-107) mmol/L Carbon Dioxide 21 (21-32) mmol/L Anion Gap 19.6 H (7-13) mEq/L BUN 9 (7-18) mg/dL Creatinine 1.01 (0.70-1.30) mg/dL Est Cr Clr Drug Dosing 72.43 mL/min Estimated GFR (MDRD) > 60 BUN/Creatinine Ratio 8.9 (No establ ref range) Glucose 129 H (74-99) mg/dL Lactic Acid (0.4-2.0) mmol/L Calcium 8.8 (8.5-10.1) mg/dL Total Bilirubin 0.4 (0.2-1.0) mg/dL AST 27 (15-37) U/L ALT 18 (16-63) U/L Alkaline Phosphatase 72 (46-116) U/L Troponin I (0.000-0.056) ng/mL C-Reactive Protein < 0.2 (0.0-0.9) mg/dL Total Protein 8.4 H (6.4-8.2) g/dL Albumin 3.4 (3.4-5.0) g/dL Globulin 5.0 Albumin/Globulin Ratio 0.7 Urine Color (YELLOW) Urine Appearance (CLEAR) Urine pH (5.0-9.0) Ur Specific [place] (1.005-1.030) Urine Protein (NEGATIVE) Urine Glucose (UA) (NEGATIVE) Urine Ketones (NEGATIVE) Urine Occult Blood (NEGATIVE) Urine Nitrite (NEGATIVE) Urine Bilirubin (NEGATIVE) Urine Urobilinogen (0.2-1.0) mg/dL Ur Leukocyte Esterase (NEGATIVE) Urine RBC /HPF Urine WBC (0-5/HPF) /HPF Ur Epithelial Cells (NOT SEEN) /HPF Amorphous Sediment (NOT SEEN) /HPF Urine Bacteria (0-FEW/HPF) /HPF Urine Mucus (NOT SEEN) /LPF Urine Other Urine Opiates Screen (NEGATIVE) Ur Oxycodone Screen (NEGATIVE) Urine Methadone Screen (NEGATIVE) Ur Barbiturates Screen (NEGATIVE) U Tricyclic Antidepress (NEGATIVE) Ur Phencyclidine Scrn (NEGATIVE) Ur Amphetamine Screen (NEGATIVE) U Methamphetamines Scrn (NEGATIVE) Urine MDMA Screen (NEGATIVE) U Benzodiazepines Scrn (NEGATIVE) Urine Cocaine Screen (NEGATIVE) U Marijuana (THC) Screen (NEGATIVE) Ethyl Alcohol < 3 (0) mg/dL SARS CoV-2 RNA Rapid LEANN Negative (NEGATIVE) 03/21/20 03/21/20 03/21/20 Range/Units 12:17 12:17 13:24 WBC (5.0-10.0) 10^3/uL RBC (4.6-6.2) 10^6/uL Hgb (14.0-18.0) g/dL Hct (40.0-54.0) % MCV (80-100) fL MCH (27.0-34.0) pg MCHC (33.0-35.0) g/dL Plt Count (150-450) 10^3/uL Neut % (Auto) (42.2-75.2) % Lymph % (Auto) (20.5-50.1) % [place]nairy % (Auto) (2-8) % Eos % (Auto) (1.0-3.0) % Baso % (Auto) (0.0-1.0) % Sodium (136-145) mmol/L Potassium (3.5-5.1) mmol/L Chloride (98-107) mmol/L Carbon Dioxide (21-32) mmol/L Anion Gap (7-13) mEq/L BUN (7-18) mg/dL Creatinine (0.70-1.30) mg/dL Est Cr Clr Drug Dosing mL/min Estimated GFR (MDRD) BUN/Creatinine Ratio (No establ ref range) Glucose (74-99) mg/dL Lactic Acid 6.7 H* (0.4-2.0) mmol/L Calcium (8.5-10.1) mg/dL Total Bilirubin (0.2-1.0) mg/dL AST (15-37) U/L ALT (16-63) U/L Alkaline Phosphatase (46-116) U/L Troponin I < 0.017 (0.000-0.056) ng/mL C-Reactive Protein (0.0-0.9) mg/dL Total Protein (6.4-8.2) g/dL Albumin (3.4-5.0) g/dL Globulin Albumin/Globulin Ratio Urine Color Yellow (YELLOW) Urine Appearance Clear (CLEAR) Urine pH 7.0 (5.0-9.0) Ur Specific [place] >= 1.030 (1.005-1.030) Urine Protein 100 H (NEGATIVE) Urine Glucose (UA) Negative (NEGATIVE) Urine Ketones Negative (NEGATIVE) Urine Occult Blood Trace-intact H (NEGATIVE) Urine Nitrite Negative (NEGATIVE) Urine Bilirubin Negative (NEGATIVE) Urine Urobilinogen 0.2 (0.2-1.0) mg/dL Ur Leukocyte Esterase Negative (NEGATIVE) Urine RBC 5-10 H /HPF Urine WBC 0-5 (0-5/HPF) /HPF Ur Epithelial Cells Rare (NOT SEEN) /HPF Amorphous Sediment Few (NOT SEEN) /HPF Urine Bacteria Rare (0-FEW/HPF) /HPF Urine Mucus Moderate H (NOT SEEN) /LPF Urine Other See note Urine Opiates Screen (NEGATIVE) Ur Oxycodone Screen (NEGATIVE) Urine Methadone Screen (NEGATIVE) Ur Barbiturates Screen (NEGATIVE) U Tricyclic Antidepress (NEGATIVE) Ur Phencyclidine Scrn (NEGATIVE) Ur Amphetamine Screen (NEGATIVE) U Methamphetamines Scrn (NEGATIVE) Urine MDMA Screen (NEGATIVE) U Benzodiazepines Scrn (NEGATIVE) Urine Cocaine Screen (NEGATIVE) U Marijuana (THC) Screen (NEGATIVE) Ethyl Alcohol (0) mg/dL SARS CoV-2 RNA Rapid LEANN (NEGATIVE) 03/21/20 Range/Units 13:24 WBC (5.0-10.0) 10^3/uL RBC (4.6-6.2) 10^6/uL Hgb (14.0-18.0) g/dL Hct (40.0-54.0) % MCV (80-100) fL MCH (27.0-34.0) pg MCHC (33.0-35.0) g/dL Plt Count (150-450) 10^3/uL Neut % (Auto) (42.2-75.2) % Lymph % (Auto) (20.5-50.1) % [place] % (Auto) (2-8) % Eos % (Auto) (1.0-3.0) % Baso % (Auto) (0.0-1.0) % Sodium (136-145) mmol/L Potassium (3.5-5.1) mmol/L Chloride (98-107) mmol/L Carbon Dioxide (21-32) mmol/L Anion Gap (7-13) mEq/L BUN (7-18) mg/dL Creatinine (0.70-1.30) mg/dL Est Cr Clr Drug Dosing mL/min Estimated GFR (MDRD) BUN/Creatinine Ratio (No establ ref range) Glucose (74-99) mg/dL Lactic Acid (0.4-2.0) mmol/L Calcium (8.5-10.1) mg/dL Total Bilirubin (0.2-1.0) mg/dL AST (15-37) U/L ALT (16-63) U/L Alkaline Phosphatase (46-116) U/L Troponin I (0.000-0.056) ng/mL C-Reactive Protein (0.0-0.9) mg/dL Total Protein (6.4-8.2) g/dL Albumin (3.4-5.0) g/dL Globulin Albumin/Globulin Ratio Urine Color (YELLOW) Urine Appearance (CLEAR) Urine pH (5.0-9.0) Ur Specific [place] (1.005-1.030) Urine Protein (NEGATIVE) Urine Glucose (UA) (NEGATIVE) Urine Ketones (NEGATIVE) Urine Occult Blood (NEGATIVE) Urine Nitrite (NEGATIVE) Urine Bilirubin (NEGATIVE) Urine Urobilinogen (0.2-1.0) mg/dL Ur Leukocyte Esterase (NEGATIVE) Urine RBC /HPF Urine WBC (0-5/HPF) /HPF Ur Epithelial Cells (NOT SEEN) /HPF Amorphous Sediment (NOT SEEN) /HPF Urine Bacteria (0-FEW/HPF) /HPF Urine Mucus (NOT SEEN) /LPF Urine Other Urine Opiates Screen Negative (NEGATIVE) Ur Oxycodone Screen Negative (NEGATIVE) Urine Methadone Screen Negative (NEGATIVE) Ur Barbiturates Screen Negative (NEGATIVE) U Tricyclic Antidepress Negative (NEGATIVE) Ur Phencyclidine Scrn Negative (NEGATIVE) Ur Amphetamine Screen Negative (NEGATIVE) U Methamphetamines Scrn Negative (NEGATIVE) Urine MDMA Screen Negative (NEGATIVE) U Benzodiazepines Scrn Negative (NEGATIVE) Urine Cocaine Screen Negative (NEGATIVE) U Marijuana (THC) Screen Positive H (NEGATIVE) Ethyl Alcohol (0) mg/dL SARS CoV-2 RNA Rapid LEANN (NEGATIVE) Meds: Medications Discontinued Medications Generic Name Dose Route Start Last Admin Trade Name Freq PRN Reason Stop Dose Admin Levetiracetam 1,000 mg/ Premix 200 mls @ 800 mls/hr 03/21/20 12:13 03/21/20 12:34 IV 03/21/20 12:14 800 mls/hr ONETIME ONE Administration Lorazepam Confirm 03/21/20 11:59 Ativan Administered 03/21/20 12:00 Dose 2 mg .ROUTE .STK-MED ONE - Re-Assessments/Exams Free Text/Narrative Re-Assessment/Exam: 03/21/20 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 03/21/20 14:21 Patient alert, oriented, and communicating appropriately. He states he has his seizure medications at home and does not need a prescription. Patient to discharge home with instructions to follow up with primary care provider and neurology, as previously scheduled. Departure - Departure Time of Disposition: 14:29 Disposition: Home, Self-Care 01 Condition: Fair Clinical Impression: Post-ictal state, Seizure - Discharge Information *PRESCRIPTION DRUG MONITORING PROGRAM REVIEWED*: Not Applicable *COPY OF PRESCRIPTION DRUG MONITORING REPORT IN PATIENT MANNY: Not Applicable Instructions: Seizure, Adult, [id number] Forms: ED Department Discharge Additional Instructions: Take your anti-seizure medication, as prescribed. Follow up with your primary care provider in 5-7 days regarding today's visit. You may require an increase in your anti-seizure medication dose. Keep neurology appointment to discuss ongoing management of seizures. Sepsis Event Note (ED) - Evaluation Sepsis Screening Result: No Definite Risk - Focused Exam Vital Signs: Vital Signs Temp Pulse Resp BP Pulse Ox 03/21/20 12:06 98.8 F 79 16 151/79 H 99 - My Orders Last 24 Hours: My Active Orders 03/21/20 14:36 EKG Documentation Completion [RC] STAT - Assessment/Plan Last 24 Hours: My Active Orders 03/21/20 14:36 EKG Documentation Completion [RC] STAT
== END 2020-03-21 15:15 | disposition home or self-care (01) ==
LOC: DL.ED 12:27
DX: R56.9 Unspecified convulsions (principal); K21.9 Gastro-esophageal reflux disease without esophagitis; Z86.711 Personal history of pulmonary embolism; Z20.828 Contact with and (suspected) exposure to other viral communicable diseases; Z88.1 Allergy status to other antibiotic agents; Z79.01 Long term (current) use of anticoagulants; Z79.899 Other long term (current) drug therapy; Z86.718 Personal history of other venous thrombosis and embolism
CPT/HCPCS: 36415; 80053; 80305-QW; 80307; 81001; 83605; 84484; 85025; 86140; 93005; 96365; 99285-25; J1953; U0002

== ENCOUNTER 2020-06-25 14:43 | Emergency (ER) | payer MEDICAID ==
[2020-06-25 14:49] VITALS: BP 138/85; PULSE 100
--- NOTE | 2020-06-25 15:02 | EDM.PDOC ---
ED HPI GENERAL MEDICAL PROBLEM - General Chief Complaint: General Stated Complaint: AMBULANCE Time Seen by Provider: 06/25/20 14:45 Source of Information: Reports: Patient, EMS, RN, RN Notes Reviewed History Limitations: Reports: No Limitations - History of Present Illness INITIAL COMMENTS - FREE TEXT/NARRATIVE: Patient presents to the ED via EMS with seizure-like activity. Per EMS the patient was noted to have tonic-clonic seizure-like activity lasting > 4minutes at his home. He was given Valium 5mg en route due to agitation. The patient arrives to this facility alert and oriented to self, only He does report a history of seizures and for which he takes Keppra; he states he has been taking his medications as prescribed. He denies recent illness, fever, shaking chills, cough, sore throat, chest pain/pressure, shortness of breath, nausea, vomiting, or diarrhea. He attest to drinking regularly drinking alcohol but does not remember his last drink. He denies tobacco use or recreational drug use. - Related Data Allergies Allergy/AdvReac Type Severity Reaction Status Date / Time amoxicillin Allergy Rash Verified 06/25/20 14:43 Home Meds: Home Meds predniSONE [Prednisone] 10 mg PO DAILY 11/12/15 [History] Omeprazole 20 mg PO DAILY 01/22/16 [History] Apixaban [Eliquis] 10 mg PO BID 01/23/18 [History] Past Medical History HEENT History: Reports: Impaired Vision Other HEENT History: CORRECTIVE LENS Cardiovascular History: Reports: Blood Clots/VTE/DVT Respiratory History: Reports: PE Gastrointestinal History: Reports: GERD Genitourinary History: Reports: None Musculoskeletal History: Reports: SLE Neurological History: Reports: Seizure Psychiatric History: Reports: None Endocrine/Metabolic History: Reports: None Hematologic History: Reports: None Immunologic History: Reports: Immunosuppression (Chronic prednisone tx.), SLE Oncologic (Cancer) History: Reports: None Dermatologic History: Reports: Cellulitis - Infectious Disease History Infectious Disease History: Reports: Chicken Pox, Measles, Mumps - Past Surgical History HEENT Surgical History: Reports: Oral Surgery Respiratory Surgical History: Reports: None GI Surgical History: Reports: Colonoscopy, EGD Musculoskeletal Surgical History: Reports: None Dermatological Surgical History: Reports: None Social & Family History - Family History Family Medical History: No Pertinent Family History - Caffeine Use Caffeine Use: Reports: Coffee, Soda Other Caffeine Use: OCCASIONALLY - Living Situation & Occupation Living situation: Reports: , with Spouse ED ROS GENERAL - Review of Systems Review Of Systems: Comprehensive ROS is negative, except as noted in HPI. ED EXAM, GENERAL - Physical Exam Exam: See Below Exam Limited By: Altered Mental Status General Appearance: Alert, No Apparent Distress Eye Exam: Bilateral Eye: EOMI, Normal Inspection, PERRL (4mm) Ears: Normal External Exam, Normal Canal, Hearing Grossly Normal, Normal TMs Nose: Normal Inspection, Normal Mucosa, No Blood Throat/Mouth: Normal Voice, No Airway Compromise Respiratory/Chest: No Respiratory Distress, No Accessory Muscle Use, Chest Non- Tender, Rales (To bilateral bases). No: Rhonchi, Wheezing, Stridor, Pleural Rub Cardiovascular: Normal Peripheral Pulses, Regular Rate, Rhythm, No Edema, No Gallop, No JVD, No Murmur, No Rub Peripheral Pulses: 2+: Radial (L), Radial (R), Dorsalis Pedis (L), Dorsalis Pedis (R) GI/Abdominal: Soft, Non-Tender, No Distention, No Mass, Pelvis Stable, Abnormal Bowel Sounds (Hyperactive bowel sounds) (Male) Exam: Deferred Rectal (Males) Exam: Deferred Back Exam: Normal Inspection, Full Range of Motion. No: CVA Tenderness (L), CVA Tenderness (R) Extremities: Normal Inspection, Normal Range of Motion, Non-Tender, Normal Capillary Refill, No Pedal Edema Neurological: Alert, CN II-XII Intact, Confused, Disoriented (Only oriented to self ) Skin Exam: Warm, Dry, Intact, Normal Color, No Rash. No: Ecchymosis, Erythema, Jaundice, Mottled, Pallor, Petechiae #1 Interpretation EKG Date: 06/25/20 Time: 14:48 Rhythm: Other (Sinus Tachycardia) Rate (Beats/Min): 100 [place]: Normal P-Wave: Present QRS: Normal ST-T: Normal QT: Normal Comparison: No Change EKG Interpretation Comments: Sinus Tachycardia; No evidence of acute myocardial ischemia Course - Vital Signs Last Recorded V/S: Last Vital Signs Temp 99 F 06/25/20 14:43 Pulse 100 06/25/20 14:43 Resp 18 06/25/20 14:43 BP 138/85 06/25/20 14:43 Pulse Ox 98 02/15/21 14:43 - Orders/Labs/Meds Orders: Active Orders 24 hr Category Date Time Status VALPROIC ACID [REF] Stat Lab 06/25/20 14:45 Received Labs: Laboratory Tests 06/25/20 06/25/20 06/25/20 Range/Units 14:45 14:45 14:45 WBC 6.7 (5.0-10.0) 10^3/uL RBC 4.75 (4.6-6.2) 10^6/uL Hgb 14.8 (14.0-18.0) g/dL Hct 43.5 (40.0-54.0) % MCV 91.6 (80-100) fL MCH 31.2 (27.0-34.0) pg MCHC 34.0 (33.0-35.0) g/dL Plt Count 144 L (150-450) 10^3/uL Neut % (Auto) 69.2 (42.2-75.2) % Lymph % (Auto) 19.8 L (20.5-50.1) % Teller % (Auto) 9.3 H (2-8) % Eos % (Auto) 1.6 (1.0-3.0) % Baso % (Auto) 0.1 (0.0-1.0) % PT 10.6 (9.0-12.0) SEC INR 1.1 (0.9-1.2) APTT 21.7 L (22.0-34.0) SEC Sodium 139 (136-145) mmol/L Potassium 3.2 L (3.5-5.1) mmol/L Chloride 101 (98-107) mmol/L Carbon Dioxide 17 L (21-32) mmol/L Anion Gap 24.2 H (7-13) mEq/L BUN 11 (7-18) mg/dL Creatinine 1.23 (0.70-1.30) mg/dL Est Cr Clr Drug Dosing 63.10 mL/min Estimated GFR (MDRD) 59 BUN/Creatinine Ratio 8.9 (No establ ref range) Glucose 122 H (74-99) mg/dL Lactic Acid (0.4-2.0) mmol/L Calcium 8.6 (8.5-10.1) mg/dL Magnesium 1.7 L (1.8-2.4) mg/dL Total Bilirubin 0.3 (0.2-1.0) mg/dL AST 19 (15-37) U/L ALT 16 (16-63) U/L Alkaline Phosphatase 76 (46-116) U/L Troponin I < 0.017 (0.000-0.056) ng/mL C-Reactive Protein 0.3 (0.0-0.9) mg/dL Total Protein 8.6 H (6.4-8.2) g/dL Albumin 3.7 (3.4-5.0) g/dL Globulin 4.9 Albumin/Globulin Ratio 0.8 Urine Color (YELLOW) Urine Appearance (CLEAR) Urine pH (5.0-9.0) Ur Specific [place] (1.005-1.030) Urine Protein (NEGATIVE) Urine Glucose (UA) (NEGATIVE) Urine Ketones (NEGATIVE) Urine Occult Blood (NEGATIVE) Urine Nitrite (NEGATIVE) Urine Bilirubin (NEGATIVE) Urine Urobilinogen (0.2-1.0) mg/dL Ur Leukocyte Esterase (NEGATIVE) Urine RBC /HPF Urine WBC (0-5/HPF) /HPF Ur Epithelial Cells (NOT SEEN) /HPF Urine Bacteria (0-FEW/HPF) /HPF Urine Mucus (NOT SEEN) /LPF Urine Other Urine Opiates Screen (NEGATIVE) Ur Oxycodone Screen (NEGATIVE) Urine Methadone Screen (NEGATIVE) Ur Barbiturates Screen (NEGATIVE) U Tricyclic Antidepress (NEGATIVE) Ur Phencyclidine Scrn (NEGATIVE) Ur Amphetamine Screen (NEGATIVE) U Methamphetamines Scrn (NEGATIVE) Urine MDMA Screen (NEGATIVE) U Benzodiazepines Scrn (NEGATIVE) Urine Cocaine Screen (NEGATIVE) U Marijuana (THC) Screen (NEGATIVE) Ethyl Alcohol < 3 (0) mg/dL Influenza Type A RNA (NEGATIVE) Influenza Type B RNA (NEGATIVE) SARS-CoV-2 RNA (LEANN) (NEGATIVE) 06/25/20 06/25/20 06/25/20 Range/Units 14:45 15:02 18:15 WBC (5.0-10.0) 10^3/uL RBC (4.6-6.2) 10^6/uL Hgb (14.0-18.0) g/dL Hct (40.0-54.0) % MCV (80-100) fL MCH (27.0-34.0) pg MCHC (33.0-35.0) g/dL Plt Count (150-450) 10^3/uL Neut % (Auto) (42.2-75.2) % Lymph % (Auto) (20.5-50.1) % Teller % (Auto) (2-8) % Eos % (Auto) (1.0-3.0) % Baso % (Auto) (0.0-1.0) % PT (9.0-12.0) SEC INR (0.9-1.2) APTT (22.0-34.0) SEC Sodium (136-145) mmol/L Potassium (3.5-5.1) mmol/L Chloride (98-107) mmol/L Carbon Dioxide (21-32) mmol/L Anion Gap (7-13) mEq/L BUN (7-18) mg/dL Creatinine (0.70-1.30) mg/dL Est Cr Clr Drug Dosing mL/min Estimated GFR (MDRD) BUN/Creatinine Ratio (No establ ref range) Glucose (74-99) mg/dL Lactic Acid 7.1 H* (0.4-2.0) mmol/L Calcium (8.5-10.1) mg/dL Magnesium (1.8-2.4) mg/dL Total Bilirubin (0.2-1.0) mg/dL AST (15-37) U/L ALT (16-63) U/L Alkaline Phosphatase (46-116) U/L Troponin I (0.000-0.056) ng/mL C-Reactive Protein (0.0-0.9) mg/dL Total Protein (6.4-8.2) g/dL Albumin (3.4-5.0) g/dL Globulin Albumin/Globulin Ratio Urine Color Yellow (YELLOW) Urine Appearance Slightly cloudy (CLEAR) Urine pH 7.5 (5.0-9.0) Ur Specific [place] 1.025 (1.005-1.030) Urine Protein >=300 H (NEGATIVE) Urine Glucose (UA) Negative (NEGATIVE) Urine Ketones Trace H (NEGATIVE) Urine Occult Blood Trace-intact H (NEGATIVE) Urine Nitrite Negative (NEGATIVE) Urine Bilirubin Negative (NEGATIVE) Urine Urobilinogen 0.2 (0.2-1.0) mg/dL Ur Leukocyte Esterase Negative (NEGATIVE) Urine RBC 10-20 H /HPF Urine WBC 0-5 (0-5/HPF) /HPF Ur Epithelial Cells Few (NOT SEEN) /HPF Urine Bacteria Rare (0-FEW/HPF) /HPF Urine Mucus Moderate H (NOT SEEN) /LPF Urine Other See note Urine Opiates Screen (NEGATIVE) Ur Oxycodone Screen (NEGATIVE) Urine Methadone Screen (NEGATIVE) Ur Barbiturates Screen (NEGATIVE) U Tricyclic Antidepress (NEGATIVE) Ur Phencyclidine Scrn (NEGATIVE) Ur Amphetamine Screen (NEGATIVE) U Methamphetamines Scrn (NEGATIVE) Urine MDMA Screen (NEGATIVE) U Benzodiazepines Scrn (NEGATIVE) Urine Cocaine Screen (NEGATIVE) U Marijuana (THC) Screen (NEGATIVE) Ethyl Alcohol (0) mg/dL Influenza Type A RNA Negative (NEGATIVE) Influenza Type B RNA Negative (NEGATIVE) SARS-CoV-2 RNA (LEANN) Negative (NEGATIVE) 06/25/20 06/25/20 06/25/20 Range/Units 18:15 18:20 18:20 WBC (5.0-10.0) 10^3/uL RBC (4.6-6.2) 10^6/uL Hgb (14.0-18.0) g/dL Hct (40.0-54.0) % MCV (80-100) fL MCH (27.0-34.0) pg MCHC (33.0-35.0) g/dL Plt Count (150-450) 10^3/uL Neut % (Auto) (42.2-75.2) % Lymph % (Auto) (20.5-50.1) % Teller % (Auto) (2-8) % Eos % (Auto) (1.0-3.0) % Baso % (Auto) (0.0-1.0) % PT (9.0-12.0) SEC INR (0.9-1.2) APTT (22.0-34.0) SEC Sodium 140 (136-145) mmol/L Potassium 3.4 L (3.5-5.1) mmol/L Chloride 104 (98-107) mmol/L Carbon Dioxide 21 (21-32) mmol/L Anion Gap 18.4 H (7-13) mEq/L BUN 10 (7-18) mg/dL Creatinine 0.85 (0.70-1.30) mg/dL Est Cr Clr Drug Dosing 91.31 mL/min Estimated GFR (MDRD) > 60 BUN/Creatinine Ratio (No establ ref range) Glucose 76 (74-99) mg/dL Lactic Acid 0.9 (0.4-2.0) mmol/L Calcium 8.0 L (8.5-10.1) mg/dL Magnesium (1.8-2.4) mg/dL Total Bilirubin (0.2-1.0) mg/dL AST (15-37) U/L ALT (16-63) U/L Alkaline Phosphatase (46-116) U/L Troponin I (0.000-0.056) ng/mL C-Reactive Protein (0.0-0.9) mg/dL Total Protein (6.4-8.2) g/dL Albumin (3.4-5.0) g/dL Globulin Albumin/Globulin Ratio Urine Color (YELLOW) Urine Appearance (CLEAR) Urine pH (5.0-9.0) Ur Specific [place] (1.005-1.030) Urine Protein (NEGATIVE) Urine Glucose (UA) (NEGATIVE) Urine Ketones (NEGATIVE) Urine Occult Blood (NEGATIVE) Urine Nitrite (NEGATIVE) Urine Bilirubin (NEGATIVE) Urine Urobilinogen (0.2-1.0) mg/dL Ur Leukocyte Esterase (NEGATIVE) Urine RBC /HPF Urine WBC (0-5/HPF) /HPF Ur Epithelial Cells (NOT SEEN) /HPF Urine Bacteria (0-FEW/HPF) /HPF Urine Mucus (NOT SEEN) /LPF Urine Other Urine Opiates Screen Negative (NEGATIVE) Ur Oxycodone Screen Negative (NEGATIVE) Urine Methadone Screen Negative (NEGATIVE) Ur Barbiturates Screen Negative (NEGATIVE) U Tricyclic Antidepress Negative (NEGATIVE) Ur Phencyclidine Scrn Negative (NEGATIVE) Ur Amphetamine Screen Negative (NEGATIVE) U Methamphetamines Scrn Negative (NEGATIVE) Urine MDMA Screen Negative (NEGATIVE) U Benzodiazepines Scrn Positive H (NEGATIVE) Urine Cocaine Screen Negative (NEGATIVE) U Marijuana (THC) Screen Positive H (NEGATIVE) Ethyl Alcohol (0) mg/dL Influenza Type A RNA (NEGATIVE) Influenza Type B RNA (NEGATIVE) SARS-CoV-2 RNA (LEANN) (NEGATIVE) Meds: Medications Discontinued Medications Generic Name Dose Route Start Last Admin Trade Name Freq PRN Reason Stop Dose Admin Sodium Chloride 1,000 mls @ 999 mls/hr 06/25/20 15:38 06/25/20 16:13 Normal Saline IV 06/25/20 16:38 999 mls/hr .BOLUS ONE Administration Potassium Chloride 10 meq/ 100 mls @ 100 mls/hr 06/25/20 15:38 06/25/20 16:13 Premix IV 06/25/20 16:37 100 mls/hr ONETIME ONE Administration Levetiracetam 1,000 mg/ Premix 200 mls @ 800 mls/hr 06/25/20 15:42 06/25/20 15:59 IV 06/25/20 15:43 800 mls/hr ONETIME ONE Administration Ondansetron HCl 4 mg 06/25/20 16:02 06/25/20 16:13 Zofran IVPUSH 06/25/20 16:03 4 mg ONETIME ONE Administration - Re-Assessments/Exams Free Text/Narrative Re-Assessment/Exam: 06/25/20 Post-ictal, resting with eyes closed but responding to commands. Patient rem ains seizure-free since arrival to facility. Patient previously prescribed Keppra so Keppra 1000mg IVB administered. NS 1L bolus initiated. Patient's girlfriend, Nati, called to update ED staff regarding patient's health over the past few days. She stated he had been vomiting with loose stools for about two days. She states patient has not been drinking alcohol or using recreational drugs. She notes she is unsure if he has been taking his anti-seizure medications. WBC unremarkable for acute processes; no indications of infection, platelets 144 but this is chronic for the patient and actually improved when compared to last visit in March 2020. Electrolytes likely reduced due to gastrointestinal loss. Potassium improved from 3.2 to 3.4 following KCl 10 mEq x1. Anion Gap improved from 24.2 to 18.4 following NS bolus. Lactic acid from 7.1 to 0.9 following bolus, as well. COVID and Influenza negative. Patient states he would like to go home. Will discharge patient home with understanding he needs to take Keppra, as previously prescribed, and follow up with his primary care provider in 1-2 days. Red flag signs and symptoms which would warrant reevaluation discussed. Patient verbalized understanding and agreement with the plan of care. Departure - Departure Time of Disposition: 18:51 Disposition: Home, Self-Care 01 Condition: Good Clinical Impression: Seizures, Hypokalemia, Hyponatremia, Nausea, vomiting, and diarrhea, History of systemic lupus erythematosus (SLE), Post-ictal state - Discharge Information *PRESCRIPTION DRUG MONITORING PROGRAM REVIEWED*: Not Applicable *COPY OF PRESCRIPTION DRUG MONITORING REPORT IN PATIENT MANNY: Not Applicable Instructions: Seizure, Adult, [id number] Referrals: Pamela Lovell MD [Primary Care Provider] - Forms: ED Department Discharge Additional Instructions: Rx: Zofran 1.) Take your Keppra, as previously prescribed. 2.) Follow up with with your primary care provider in one to two days. 3.) Drink plenty of water to stay hydrated. Sepsis Event Note (ED) - Evaluation Sepsis Screening Result: No Definite Risk - My Orders Last 24 Hours: My Active Orders 06/25/20 14:45 VALPROIC ACID [REF] Stat - Assessment/Plan Last 24 Hours: My Active Orders 06/25/20 14:45 VALPROIC ACID [REF] Stat
[2020-06-25 15:17] LABS: ANION GAP 24.2 mEq/L (7-13); CHLORIDE,CL 101 mmol/L (98-107); SODIUM,NA 139 mmol/L (136-145)
[2020-06-25 15:18] LABS: PTT,PARTIAL THROMBOPLSTIN TIME 21.7 SEC (22.0-34.0)
[2020-06-25] MEDS ORDERED: Potassium Chloride 10 MEQ in Premix Bag 1 BAG IV ONE (15:38)
[2020-06-25] MEDS ORDERED: Sodium Chloride 0.9% 1,000 ML IV ONE (15:38)
[2020-06-25] MEDS ORDERED: levETIRAcetam in NaCl (iso-os) 1,000 MG in Premix Bag 1 BAG IV ONE ×2 (15:42)
[2020-06-25 15:52] LABS: CORONAVIRUS COVID-19 NAA NEGATIVE (NEGATIVE)
[2020-06-25] MEDS ORDERED: Ondansetron 4 MG/2 ML SDV IVPUSH ONE (16:02)
--- NOTE | 2020-06-25 16:56 | CR ---
EXAMINATION: Chest 1V Frontal SEX: Male AGE: 65 years CLINICAL HISTORY: 65-year-old male with clinical rales to bilateral bases (COVID negative). INTERPRETATION: 1. Bibasilar atelectasis/fibrosis (bronchiectasis RLL?) present and unchanged since comparison exam 2 August,. 2. Normal cardiac silhouette (size and configuration). Left-sided aortic arch. 3. No pulmonary vascular congestion, cephalization of flow, alveolar edema or dependent pleural effusions. 4. No new lung mass or hilar lymphadenopathy. 5. No new focal lobar alveolar consolidation or peripheral "groundglass" interstitial lung densities. 6. No pneumothorax or pneumomediastinum. CONCLUSION: No acute new cardiopulmonary abnormality since chest exam August,.
[2020-06-25 18:40] LABS: ANION GAP 18.4 mEq/L (7-13); CHLORIDE,CL 104 mmol/L (98-107); SODIUM,NA 140 mmol/L (136-145)
== END 2020-06-25 19:12 | disposition home or self-care (01) ==
LOC: DL.ED 14:43
DX: R56.9 Unspecified convulsions (principal); E87.6 Hypokalemia; R11.2 Nausea with vomiting, unspecified; R19.7 Diarrhea, unspecified; M32.9 Systemic lupus erythematosus, unspecified; R00.0 Tachycardia, unspecified; K21.9 Gastro-esophageal reflux disease without esophagitis; Z86.711 Personal history of pulmonary embolism; Z88.0 Allergy status to penicillin; Z79.899 Other long term (current) drug therapy; Z79.01 Long term (current) use of anticoagulants; Z20.822 Contact with and (suspected) exposure to COVID-19
CPT/HCPCS: 0240U; 36415; 71045; 80048; 80053; 80164; 80305; 80307; 81001; 83605; 83735; 84484; 85025; 85610; 85730; 86140; 93005; 96365; 96375; 99285; J1953; J2405; J3480; J7030; 99284

== ENCOUNTER 2023-01-12 13:50 | Emergency (ER) | payer MEDICAID, MEDICARE ==
[2023-01-12] MEDS ORDERED: predniSONE 20 MG Tab PO ONE (14:06)
[2023-01-12 14:12] VITALS: BP 136/84; PULSE 78
[2023-01-12 14:20] LABS: BASOPHILS PERCENT AUTO 1.4 % (0.0-1.0); EOSINOPHILS PERCENT AUTO 6.1 % (1.0-3.0); HEMATOCRIT 28.9 % (40.0-54.0); HEMOGLOBIN 9.7 g/dL (14.0-18.0); LYMPHOCYTES PERCENT AUTO 30.4 % (20.5-50.1); MEAN CORPUSCULAR HEMOGLOBIN 29.1 pg (27.0-34.0); MEAN CORPUSCULAR HGB CONC 33.6 g/dL (33.0-35.0); MEAN CORPUSCULAR VOLUME 86.8 fL (80-100); MONOCYTES PERCENT AUTO 9.3 % (2-8); NEUTROPHILS PERCENT AUTO 52.8 % (42.2-75.2); PLATELET COUNT,PLT 73 10^3/uL (150-450); RED BLOOD CELL COUNT 3.33 10^6/uL (4.6-6.2); WHITE BLOOD CELL COUNT,WBC 2.1 10^3/uL (5.0-10.0)
[2023-01-12 14:35] LABS: ALBUMIN 2.8 g/dL (3.4-5.0); ANION GAP 14.3 mEq/L (7-13); BILIRUBIN TOTAL 0.4 mg/dL (0.2-1.0); BUN/CREATININE RATIO 9.9 (No establ ref range); CALCIUM 7.9 mg/dL (8.5-10.1); CREATININE 0.91 mg/dL (0.70-1.30); EST CRCL DRUG DOSING (CG) 71.13 mL/min; POTASSIUM,K 3.3 mmol/L (3.5-5.1); PROTEIN TOTAL,TP 7.6 g/dL (6.4-8.2)
[2023-01-12 14:36] LABS: A/G RATIO 0.58
[2023-01-12] MEDS ORDERED: Potassium Chloride 10 MEQ Tab.ER PO ONE (14:43)
== END 2023-01-12 15:12 | disposition home or self-care (01) ==
LOC: DL.ED 13:50
DX: M32.9 Systemic lupus erythematosus, unspecified (principal); E87.6 Hypokalemia; F19.20 Other psychoactive substance dependence, uncomplicated; K21.9 Gastro-esophageal reflux disease without esophagitis; Z86.711 Personal history of pulmonary embolism; Z88.0 Allergy status to penicillin; Z79.899 Other long term (current) drug therapy
CPT/HCPCS: 36415; 73030; 80053; 85025; 99283; A9270; J7512; 99284

== ENCOUNTER 2023-02-24 07:20 | Day surgery (SDC) | payer MEDICARE, MEDICAID ==
[~2023-02-24 07:20] MED LIST changes: +Dextrose 5%-0.45% NaCl 1,000 ML IV SCH; -LORazepam 2 MG/ML SDV ONE; -levETIRAcetam in NaCl (iso-os) 1,000 MG in Premix Bag 1 BAG IV ONE
[2023-02-24] MEDS ORDERED: Midazolam 1 MG/ML 2 ML SDV ONE (08:08)
[2023-02-24] MEDS ORDERED: fentaNYL 100 MCG/2 ML SDV ONE (08:08)
[2023-02-24] MEDS ORDERED: fentaNYL 100 MCG/2 ML SDV IV ONE ×3 (08:52→09:04)
[2023-02-24] MEDS ORDERED: Midazolam 1 MG/ML 2 ML SDV IV ONE ×6 (08:53→09:01)
[2023-02-24 10:38] VITALS: BP 116/61; PULSE 68
== END 2023-02-24 10:34 | disposition home or self-care (01) ==
LOC: DL.ENDO 07:20
PROVIDERS: ATTEND Internal Medicine Gastroenterology
DX: R10.84 Generalized abdominal pain (principal); J42 Unspecified chronic bronchitis; M32.10 Systemic lupus erythematosus, organ or system involvement unspecified; N40.0 Benign prostatic hyperplasia without lower urinary tract symptoms; R63.4 Abnormal weight loss; Z68.20 Body mass index [BMI] 20.0-20.9, adult; Z86.711 Personal history of pulmonary embolism; Z86.010 Personal history of colon polyps; F19.20 Other psychoactive substance dependence, uncomplicated; Z86.718 Personal history of other venous thrombosis and embolism; Z98.890 Other specified postprocedural states; Z88.1 Allergy status to other antibiotic agents
CPT/HCPCS: 45378; J2250; J3010; J7042

== ENCOUNTER 2023-03-23 11:10 | Inpatient (IN) | payer MEDICARE, MEDICAID ==
[2023-03-23] MEDS ORDERED: Dexamethasone 4 MG/ML SDV IVPUSH ONE (12:00)
[2023-03-23] MEDS ORDERED: Lactated Ringers 1,000 ML IV ONE ×2 (12:03→15:37)
[2023-03-23 12:20] LABS: BASOPHILS PERCENT AUTO 0.3 % (0.0-1.0); EOSINOPHILS PERCENT AUTO 4.1 % (1.0-3.0); HEMOGLOBIN 9.4 g/dL (14.0-18.0); LYMPHOCYTES PERCENT AUTO 16.7 % (20.5-50.1); MEAN CORPUSCULAR HEMOGLOBIN 29.3 pg (27.0-34.0); MEAN CORPUSCULAR HGB CONC 33.6 g/dL (33.0-35.0); MEAN CORPUSCULAR VOLUME 87.2 fL (80-100); MONOCYTES PERCENT AUTO 7.6 % (2-8); NEUTROPHILS PERCENT AUTO 71.3 % (42.2-75.2); PLATELET COUNT,PLT 67 10^3/uL (150-450); RED BLOOD CELL COUNT 3.21 10^6/uL (4.6-6.2); WHITE BLOOD CELL COUNT,WBC 3.2 10^3/uL (5.0-10.0)
[2023-03-23 12:38] LABS: ALANINE AMINOTRANSFERASE,ALT 14 U/L (16-63); ALBUMIN 2.8 g/dL (3.4-5.0); ALKALINE PHOSPHATASE 77 U/L (46-116); ANION GAP 13.5 mEq/L (7-13); ASPARTATE AMNIOTRANSFERASE,AST 20 U/L (15-37); BILIRUBIN TOTAL 0.3 mg/dL (0.2-1.0); BLOOD UREA NITROGEN,BUN 13 mg/dL (7-18); BUN/CREATININE RATIO 13.7 (No establ ref range); CALCIUM 8.1 mg/dL (8.5-10.1); CARBON DIOXIDE,CO2 22 mmol/L (21-32); CHLORIDE,CL 104 mmol/L (98-107); CREATININE 0.95 mg/dL (0.70-1.30); GLUCOSE RANDOM 101 mg/dL (70-99); LIPASE 61 U/L (16-77); MAGNESIUM 1.6 mg/dL (1.8-2.4); POTASSIUM,K 3.5 mmol/L (3.5-5.1); SODIUM,NA 136 mmol/L (136-145)
[2023-03-23 12:39] LABS: A/G RATIO 0.54; ESTIMATED GFR 88 mL/min (>=60); ETHANOL BLOOD MEDICAL < 3 mg/dL (0)
[2023-03-23] MEDS ORDERED: levETIRAcetam in NaCl (iso-os) 1,000 MG in Premix Bag 1 BAG IV ONE ×2 (13:35)
[2023-03-23] MEDS ORDERED: levETIRAcetam in NaCl (iso-os) 100 ML ONE (13:39)
[2023-03-23] MEDS ORDERED: Ondansetron 4 MG/2 ML SDV IVPUSH ONE (14:09)
[2023-03-23] MEDS ORDERED: Ondansetron 4 MG/2 ML SDV ONE (14:09)
[2023-03-23] MEDS ORDERED: Iopamidol 612 MG/ML 100 ML Bottle IVPUSH ONE (16:42)
[2023-03-23 17:06] LABS: APPEARANCE,URINE SLIGHTLY CLOUDY (CLEAR); BILIRUBIN,URINE NEGATIVE (NEGATIVE); COLOR,URINE YELLOW (YELLOW); GLUCOSE,URINE NEGATIVE (NEGATIVE); KETONES,URINE TRACE (NEGATIVE); LEUKOCYTE ESTERASE,URINE NEGATIVE (NEGATIVE); NITRITE,URINE NEGATIVE (NEGATIVE); OCCULT BLOOD,URINE MODERATE (NEGATIVE); PH,URINE 7.5 (5.0-9.0); PROTEIN,URINE 100 (NEGATIVE)
[2023-03-23 17:07] LABS: AMPHETAMINES,URINE NEGATIVE (NEGATIVE); BARBITURATES,URINE NEGATIVE (NEGATIVE); BENZODIAZEPINE,URINE POSITIVE (NEGATIVE); MDMA (ECSTASY), URINE NEGATIVE (NEGATIVE); METHADONE,URINE NEGATIVE (NEGATIVE); METHAMPHETAMINES,URINE NEGATIVE (NEGATIVE); OPIATES,URINE NEGATIVE (NEGATIVE); OXYCODONE,URINE NEGATIVE (NEGATIVE); PHENCYCLIDINE,URINE NEGATIVE (NEGATIVE); TCA,URINE NEGATIVE (NEGATIVE)
[2023-03-23 17:13] LABS: AMORPHOUS SEDIMENT,URINE MODERATE /HPF (NOT SEEN); BACTERIA,URINE MODERATE /HPF (0-FEW/HPF); EPITHELIAL CELLS,URINE FEW /HPF (NOT SEEN); MUCUS,URINE FEW /LPF (NOT SEEN); RBC,URINE 20-30 /HPF (0-5); WBC,URINE 0-5 /HPF (0-5/HPF)
[2023-03-23] MEDS ORDERED: cefTRIAXone 1 GM Vial IVPUSH ONE (19:40)
[2023-03-23] MEDS ORDERED: Acetaminophen 500 MG Tab PO ONE (19:41)
[2023-03-23] MEDS ORDERED: Polyethylene Glycol 3350 Powder 17 GM Packet PO PRN (21:22)
[2023-03-23] MEDS ORDERED: Naloxone 2 MG/2 ML Syringe IVPUSH PRN (21:22)
[2023-03-23] MEDS ORDERED: Sodium Chloride 0.9% 10 ML Syringe FLUSH PRN (21:22)
[2023-03-23] MEDS ORDERED: HYDROmorphone 0.5 MG/0.5 ML Syringe IVPUSH PRN (21:22)
[2023-03-23] MEDS ORDERED: Sennosides/Docusate Sodium 50-8.6 MG Tab PO PRN (21:22)
[2023-03-23] MEDS ORDERED: Magnesium Hydroxide 400 MG/5 ML Susp 30 ML Cup PO PRN (21:22)
[2023-03-23] MEDS ORDERED: Albuterol/Ipratropium 3.0-0.5 MG/3 ML Neb Soln NEB PRN (21:22)
[2023-03-23] MEDS ORDERED: Acetaminophen 325 MG Tab PO PRN (21:22)
[2023-03-23] MEDS ORDERED: levETIRAcetam in NaCl (iso-os) 500 MG in Premix Bag 1 BAG IV ONE ×2 (21:28)
[2023-03-23] MEDS ORDERED: Magnesium Sulfate/Water 2 GM in Premix Bag 1 BAG IV ONE (21:30)
[2023-03-23] MEDS ORDERED: MVI, Adult with Vitamin K 10 ML, Folic Acid 1 MG, Thiamine 100 MG in Lactated Ringers 1... IV ONE ×4 (21:30)
[2023-03-23] MEDS ORDERED: Flumazenil 0.1 MG/ML 5 ML MDV IVPUSH PRN (22:07)
[2023-03-23] MEDS ORDERED: Metoprolol Tartrate 5 MG/5 ML SDV IVPUSH PRN (22:07)
[2023-03-23] MEDS ORDERED: hydrALAZINE 20 MG/ML SDV IVPUSH PRN (22:07)
[2023-03-23] MEDS ORDERED: LORazepam 2 MG/ML SDV IVPUSH PRN (22:07)
[2023-03-23 22:10] LABS: CREATINE KINASE,CK 199 U/L (39-308)
[2023-03-23] MEDS ORDERED: Hydrocortisone 1% Crm 30 GM Tube TOP PRN (22:19)
[2023-03-23] MEDS: Acetaminophen/oxyCODONE 325-5 MG Tab PO PRN (22:35)
[2023-03-23] MEDS ORDERED: Heparin Sodium 5,000 Units/ML Vial IVPUSH ONE (22:37)
[2023-03-23] MEDS ORDERED: Pantoprazole 40 MG Vial IVPUSH ONE (22:38)
[2023-03-23] MEDS ORDERED: Heparin Sodium/0.45% NaCl 25,000 UNITS/500 ML BAG IV SCH (22:45)
[2023-03-24 06:21] LABS: BASOPHILS PERCENT AUTO 0.4 % (0.0-1.0); HEMATOCRIT 25.6 % (40.0-54.0); HEMOGLOBIN 8.5 g/dL (14.0-18.0); LYMPHOCYTES PERCENT AUTO 26.8 % (20.5-50.1); MEAN CORPUSCULAR HEMOGLOBIN 29.1 pg (27.0-34.0); MEAN CORPUSCULAR HGB CONC 33.2 g/dL (33.0-35.0); MEAN CORPUSCULAR VOLUME 87.7 fL (80-100); MONOCYTES PERCENT AUTO 7.8 % (2-8); PLATELET COUNT,PLT 67 10^3/uL (150-450); RED BLOOD CELL COUNT 2.92 10^6/uL (4.6-6.2); WHITE BLOOD CELL COUNT,WBC 2.6 10^3/uL (5.0-10.0)
[2023-03-24 06:48] LABS: ALBUMIN 2.4 g/dL (3.4-5.0); ANION GAP 12.3 mEq/L (7-13); BILIRUBIN TOTAL 0.3 mg/dL (0.2-1.0); BUN/CREATININE RATIO 13.5 (No establ ref range); C-REACTIVE PROTEIN 1.66 ng/dL (<=0.50); CALCIUM 7.6 mg/dL (8.5-10.1); CREATININE 0.89 mg/dL (0.70-1.30); EST CRCL DRUG DOSING (CG) 71.03 mL/min; MAGNESIUM 2.1 mg/dL (1.8-2.4); POTASSIUM,K 3.3 mmol/L (3.5-5.1)
[2023-03-24 06:59] LABS: A/G RATIO 0.52
[2023-03-24] MEDS ORDERED: Potassium Chloride 10 MEQ Tab.ER PO ONE (07:46)
[2023-03-24] MEDS ORDERED: Finasteride 5 MG Tab PO SCH (09:00)
[2023-03-24] MEDS ORDERED: Hydrocortisone 1% Crm 30 GM Tube TOP PRN (09:01)
[2023-03-24] MEDS: Dexamethasone 4 MG Tab PO SCH (09:12)
[2023-03-24] MEDS: cefTRIAXone 1 GM Vial IVPUSH SCH (09:12)
[2023-03-24] MEDS: levETIRAcetam in NaCl (iso-os) 1,500 MG in Premix Bag 1 BAG IV SCH ×4 (09:12→21:10)
[2023-03-24] MEDS: Saccharomyces Boulardii (Probiotic) 250 MG Cap PO SCH ×2 (09:12→21:05)
[2023-03-24] MEDS: Sodium Chloride 0.9% 10 ML Syringe FLUSH SCH ×2 (09:13→21:20)
[2023-03-24] MEDS: Enoxaparin 60 MG/0.6 ML Syringe SUBCUT SCH ×2 (09:16→21:07)
[2023-03-24] MEDS: Dextrose 5%-0.9% NaCl 1,000 ML IV SCH (09:33)
[2023-03-24] MEDS: Azithromycin 500 MG in Sodium Chloride 0.9% 250 ML IV SCH (11:21)
[2023-03-24] MEDS: Acetaminophen/oxyCODONE 325-5 MG Tab PO PRN ×2 (14:35→21:05)
[2023-03-24] MEDS ORDERED: Carboxymethylcellulose Sodium 1% Ophth Gel 0.4 ML UD EYEBOTH PRN (18:49)
[2023-03-24] MEDS: Tamsulosin 0.4 MG Cap.ER PO SCH (21:05)
[2023-03-24] MEDS: atorvaSTATin 10 MG Tab PO SCH (21:05)
[2023-03-24] MEDS: Ondansetron 4 MG/2 ML SDV IVPUSH PRN (23:09)
[2023-03-25 07:02] LABS: HEMATOCRIT 25.7 % (40.0-54.0); HEMOGLOBIN 8.5 g/dL (14.0-18.0); MEAN CORPUSCULAR HEMOGLOBIN 29.2 pg (27.0-34.0); MEAN CORPUSCULAR HGB CONC 33.1 g/dL (33.0-35.0); MEAN CORPUSCULAR VOLUME 88.3 fL (80-100); PLATELET COUNT,PLT 71 10^3/uL (150-450); RED BLOOD CELL COUNT 2.91 10^6/uL (4.6-6.2); WHITE BLOOD CELL COUNT,WBC 2.4 10^3/uL (5.0-10.0)
[2023-03-25 07:03] LABS: ALBUMIN 2.3 g/dL (3.4-5.0); ANION GAP 9.6 mEq/L (7-13); BILIRUBIN TOTAL 0.3 mg/dL (0.2-1.0); BUN/CREATININE RATIO 14.8 (No establ ref range); C-REACTIVE PROTEIN 0.96 ng/dL (<=0.50); CALCIUM 7.5 mg/dL (8.5-10.1); CREATININE 0.81 mg/dL (0.70-1.30); EST CRCL DRUG DOSING (CG) 78.04 mL/min; MAGNESIUM 1.7 mg/dL (1.8-2.4); POTASSIUM,K 3.6 mmol/L (3.5-5.1); PROTEIN TOTAL,TP 6.9 g/dL (6.4-8.2)
[2023-03-25 07:07] LABS: BASOPHILS PERCENT AUTO 0.4 % (0.0-1.0); EOSINOPHILS PERCENT AUTO 1.6 % (1.0-3.0); LYMPHOCYTES PERCENT AUTO 34.4 % (20.5-50.1); MONOCYTES PERCENT AUTO 7.8 % (2-8); NEUTROPHILS PERCENT AUTO 55.8 % (42.2-75.2)
[2023-03-25 07:09] LABS: A/G RATIO 0.5
[2023-03-25 07:36] LABS: ANISOCYTOSIS 2+ MODERATE; EOSINOPHILS PERCENT MAN 1 % (1-3); HYPOCHROMASIA 2+ MODERATE; LYMPHOCYTES PERCENT MAN 40 % (20-50); MONOCYTES PERCENT MAN 3 % (2-8); POIKILOCYTOSIS 1+ SLIGHT; SEG NEUTROPHILS PERCENT MAN 56 % (42-75)
[2023-03-25 07:37] LABS: BURR CELLS FEW; OVALOCYTES FEW; TEARDROP CELLS FEW
[2023-03-25 07:38] LABS: ACANTHOCYTES RARE
[2023-03-25] MEDS ORDERED: Magnesium Sulfate/Water 2 GM in Premix Bag 1 BAG IV ONE (08:17)
[2023-03-25] MEDS ORDERED: levETIRAcetam 500 MG Tab PO SCH (09:00)
[2023-03-25] MEDS: Dextrose 5%-0.9% NaCl 1,000 ML IV SCH (09:49)
[2023-03-25] MEDS: cefTRIAXone 1 GM Vial IVPUSH SCH (09:55)
[2023-03-25] MEDS: Aspirin 81 MG Tab.Chew PO SCH (10:03)
[2023-03-25] MEDS: Enoxaparin 60 MG/0.6 ML Syringe SUBCUT SCH ×2 (10:03→21:34)
[2023-03-25] MEDS: levETIRAcetam 500 MG Tab PO SCH ×2 (10:03→21:29)
[2023-03-25] MEDS: Saccharomyces Boulardii (Probiotic) 250 MG Cap PO SCH ×2 (10:04→21:29)
[2023-03-25] MEDS: Finasteride 5 MG Tab PO SCH (10:04)
[2023-03-25] MEDS: Dexamethasone 4 MG Tab PO SCH (10:04)
[2023-03-25] MEDS: Acetaminophen/oxyCODONE 325-5 MG Tab PO PRN (10:04)
[2023-03-25] MEDS: Sodium Chloride 0.9% 10 ML Syringe FLUSH SCH ×2 (10:06→21:38)
[2023-03-25] MEDS: Azithromycin 500 MG in Sodium Chloride 0.9% 250 ML IV SCH (10:10)
[2023-03-25] MEDS: Ondansetron 4 MG/2 ML SDV IVPUSH PRN (12:21)
[2023-03-25] MEDS: Tamsulosin 0.4 MG Cap.ER PO SCH (21:28)
[2023-03-25] MEDS: atorvaSTATin 10 MG Tab PO SCH (21:29)
[2023-03-26 06:36] LABS: BASOPHILS PERCENT AUTO 0.4 % (0.0-1.0); EOSINOPHILS PERCENT AUTO 0.4 % (1.0-3.0); HEMOGLOBIN 8.5 g/dL (14.0-18.0); LYMPHOCYTES PERCENT AUTO 38.6 % (20.5-50.1); MEAN CORPUSCULAR HEMOGLOBIN 28.9 pg (27.0-34.0); MEAN CORPUSCULAR HGB CONC 32.7 g/dL (33.0-35.0); MEAN CORPUSCULAR VOLUME 88.4 fL (80-100); NEUTROPHILS PERCENT AUTO 52.6 % (42.2-75.2); PLATELET COUNT,PLT 82 10^3/uL (150-450); RED BLOOD CELL COUNT 2.94 10^6/uL (4.6-6.2); WHITE BLOOD CELL COUNT,WBC 2.5 10^3/uL (5.0-10.0)
[2023-03-26 07:56] LABS: ALANINE AMINOTRANSFERASE,ALT 14 U/L (16-63); ALBUMIN 2.3 g/dL (3.4-5.0); ALKALINE PHOSPHATASE 54 U/L (46-116); ANION GAP 9.5 mEq/L (7-13); ASPARTATE AMNIOTRANSFERASE,AST 20 U/L (15-37); BILIRUBIN TOTAL 0.3 mg/dL (0.2-1.0); BLOOD UREA NITROGEN,BUN 9 mg/dL (7-18); BUN/CREATININE RATIO 11.2 (No establ ref range); CALCIUM 7.5 mg/dL (8.5-10.1); CARBON DIOXIDE,CO2 24 mmol/L (21-32); CHLORIDE,CL 108 mmol/L (98-107); EST CRCL DRUG DOSING (CG) 79.02 mL/min; GLUCOSE RANDOM 77 mg/dL (70-99); MAGNESIUM 1.8 mg/dL (1.8-2.4); POTASSIUM,K 3.5 mmol/L (3.5-5.1); PROTEIN TOTAL,TP 6.7 g/dL (6.4-8.2); SODIUM,NA 138 mmol/L (136-145)
[2023-03-26 07:58] LABS: A/G RATIO 0.52; ESTIMATED GFR 98 mL/min (>=60)
[2023-03-26 07:59] LABS: C-REACTIVE PROTEIN < 0.50 ng/dL (<=0.50)
[2023-03-26] MEDS: Saccharomyces Boulardii (Probiotic) 250 MG Cap PO SCH (08:42)
[2023-03-26] MEDS: Aspirin 81 MG Tab.Chew PO SCH (08:42)
[2023-03-26] MEDS: Dexamethasone 4 MG Tab PO SCH (08:42)
[2023-03-26] MEDS: Enoxaparin 60 MG/0.6 ML Syringe SUBCUT SCH (08:43)
[2023-03-26] MEDS: levETIRAcetam 500 MG Tab PO SCH (08:43)
[2023-03-26] MEDS: cefTRIAXone 1 GM Vial IVPUSH SCH (08:43)
[2023-03-26] MEDS: Sodium Chloride 0.9% 10 ML Syringe FLUSH SCH (08:44)
[2023-03-26] MEDS: Finasteride 5 MG Tab PO SCH (08:44)
[2023-03-26] MEDS: Acetaminophen/oxyCODONE 325-5 MG Tab PO PRN (08:45)
[2023-03-26] MEDS: Azithromycin 500 MG in Sodium Chloride 0.9% 250 ML IV SCH (09:40)
[2023-03-26 11:35] VITALS: BP 139/80; PULSE 76
== END 2023-03-26 11:30 | disposition home or self-care (01) | DRG 100 ==
LOC: DL.ED 11:10 → UNDOADMIN 20:47 → DL.MS 20:47 → UNDOADMIN 21:22
PROVIDERS: ADMIT Internal Medicine; ATTEND Internal Medicine
DX: G40.901 Epilepsy, unspecified, not intractable, with status epilepticus (principal); I21.4 Non-ST elevation (NSTEMI) myocardial infarction; J18.9 Pneumonia, unspecified organism; K21.9 Gastro-esophageal reflux disease without esophagitis; K59.09 Other constipation; D50.9 Iron deficiency anemia, unspecified; M06.9 Rheumatoid arthritis, unspecified; N40.0 Benign prostatic hyperplasia without lower urinary tract symptoms; D69.6 Thrombocytopenia, unspecified; E88.09 Other disorders of plasma-protein metabolism, not elsewhere classified; E78.5 Hyperlipidemia, unspecified; E87.6 Hypokalemia; E83.42 Hypomagnesemia; F15.90 Other stimulant use, unspecified, uncomplicated; S00.31XA Abrasion of nose, initial encounter; Z91.148 Patient's other noncompliance with medication regimen for other reason; Z91.81 History of falling; Z88.1 Allergy status to other antibiotic agents; Z86.718 Personal history of other venous thrombosis and embolism; Z86.711 Personal history of pulmonary embolism; Z79.82 Long term (current) use of aspirin; Z79.899 Other long term (current) drug therapy; Z79.01 Long term (current) use of anticoagulants; W18.30XA Fall on same level, unspecified, initial encounter; Y92.009 Unspecified place in unspecified non-institutional (private) residence as the place of occurrence of the external cause
CPT/HCPCS: 36415; 70450; 70486; 71045; 74177; 80053; 80061; 80177; 80305-QW; 80307; 81001; 82550; 83690; 83735; 84484; 85025; 85730; 86140; 87040; 93005; 93010; 93306; 94010; 96361; 96365; 96375; 97110-GP; 97161-GP; 97165-GO; 97530-GP; 99222; 99232; 99238; 99282; 99285-25; A9270-GY; C9113; J0456; J0696; J1100; J1650; J1953; J2405; J3360; J3411; J3475; J3490; J7042; J7050; J7120; J7500; J8540; Q9967

== ENCOUNTER 2024-11-17 14:00 | Emergency (ER) | payer OTHER, MEDICAID ==
[2024-11-17 14:13] VITALS: BP 139/102; PULSE 76
[2024-11-17] MEDS: Ondansetron 4 MG/2 ML SDV IM ONE (14:18)
== END 2024-11-17 14:25 | disposition home or self-care (01) ==
LOC: DL.ED 14:00
DX: K52.9 Noninfective gastroenteritis and colitis, unspecified (principal); Z79.82 Long term (current) use of aspirin; Z79.899 Other long term (current) drug therapy; Z79.51 Long term (current) use of inhaled steroids; Z88.0 Allergy status to penicillin
CPT/HCPCS: 96372; 99283; J2405